=== PATIENT | female | born 1960 | race Caucasian/White ===

== ENCOUNTER 2017-11-04 22:04 | Emergency (ER) | payer MEDICARE, MEDICAID ==
[~2017-11-04 22:04] MED LIST: ABILIFY MAINTENA 400 MG; BENZ1TAB7 PO; CLIN-5 PO; DOCU250C4 PO; FERR325T32 PO; INVEGA SUSTENNA 234 MG/1.5 ML; INVEGA TRINZA; LEVO100T PO; LEVOTHYROXINE 100 MCG TABLET; MELOXICAM 7.5 MG TABLET; MULT1TAB74 PO; PALI234D IM; SYNTHROID 50 MCG TABLET; TEMAZEPAM 30 MG CAPSULE; TRAZODONE 100 MG TABLET
== END 2017-11-05 00:59 | disposition left against medical advice (07) ==
LOC: ER 22:04
DX: Z00.8 Encounter for other general examination (principal); Z53.21 Procedure and treatment not carried out due to patient leaving prior to being seen by health care provider

== ENCOUNTER 2017-11-05 15:22 | Emergency (ER) | payer MEDICARE, MEDICAID ==
[2017-11-05 16:23] VITALS: BP 155/74
== END 2017-11-05 16:29 | disposition home or self-care (01) ==
LOC: ER 15:23
DX: B35.1 Tinea unguium (principal); I10 Essential (primary) hypertension; F17.200 Nicotine dependence, unspecified, uncomplicated; F15.10 Other stimulant abuse, uncomplicated; F11.10 Opioid abuse, uncomplicated; Z86.73 Personal history of transient ischemic attack (TIA), and cerebral infarction without residual deficits; Z98.890 Other specified postprocedural states; Z79.899 Other long term (current) drug therapy
CPT/HCPCS: 99281

== ENCOUNTER 2018-03-14 07:50 | Emergency (ER) | payer MEDICARE, OTHER ==
[~2018-03-14] VITALS: Ht 154.9 cm; Wt 54.0 kg
[~2018-03-14 07:50] MED LIST changes: +DIPH50CA3 PO
[2018-03-14 08:33] LABS: BASOPHILS % (AUTO) 0.4 % (0-1); EOSINOPHILS # (AUTO) 0.1 X10'3 (0-0.9); EOSINOPHILS % (AUTO) 1.4 % (0-6); HEMATOCRIT 32.1 % (35.0-45.0); HEMOGLOBIN 10.6 g/dl (12.0-16.0); LYMPHOCYTES # (AUTO) 1.2 X10'3 (1.1-4.8); LYMPHOCYTES % (AUTO) 21.7 % (21-51); MEAN CORPUSCULAR HEMOGLOBIN 29.9 PG (27.0-31.0); MEAN CORPUSCULAR HGB CONC 33.2 % (33.0-36.5); MEAN CORPUSCULAR VOLUME 90.3 FL (78-98); MEAN PLATELET VOLUME 7.4 FL (7.4-10.4); MONOCYTES # (AUTO) 0.3 X10'3 (0-0.9); MONOCYTES % (AUTO) 6.3 % (2-12); NEUTROPHILS # (AUTO) 3.8 X10'3 (1.8-7.7); NEUTROPHILS % (AUTO) 70.2 % (42-75); PLATELET COUNT 311 X10'3 (140-440); RED BLOOD COUNT 3.55 X10'6 (4.20-5.60); WHITE BLOOD COUNT 5.4 X10'3 (4.5-11.0)
[2018-03-14] MEDS ORDERED: LORazepam 1 MG tablet PO ONE (08:40)
[2018-03-14] MEDS ORDERED: diphenhydrAMINE 25mg capsule PO ONE (08:40)
[2018-03-14 08:47] LABS: ANION GAP 10 (8-16); BILIRUBIN,TOTAL 0.4 MG/DL (0.1-1.0); BLOOD UREA NITROGEN 19 MG/DL (7-18); BUN/CREATININE RATIO 18.6 (6.6-38.0); CALCIUM 9.3 MG/DL (8.5-10.1); CHLORIDE 105 MMOL/L (99-107); CREATININE 1.02 MG/DL (0.40-0.90); GLUCOSE 103 MG/DL (70-104); POTASSIUM 3.8 MMOL/L (3.5-5.1); SODIUM 143 MMOL/L (135-145); TOTAL CARBON DIOXIDE 28.2 MMOL/L (24-32); TOTAL PROTEIN 7.6 G/DL (6.4-8.2); eGFR 56 ML/MIN
[2018-03-14 08:48] LABS: ALANINE AMINOTRANSFERASE 27 U/L (12-78); ALBUMIN/GLOBULIN RATIO 1.1 (1.1-1.5); ALKALINE PHOSPHATASE 76 IU/L (46-116); ASPARTATE AMINO TRANSFERASE 27 U/L (10-37); ETHANOL < 0.010 GM/DL (0.0-0.010)
[2018-03-14 08:49] LABS: URINE HCG NEGATIVE (NEG)
[2018-03-14 08:58] LABS: URINE AMPHETAMINE SCREEN NEGATIVE (Neg); URINE BARBITUATE SCREEN NEGATIVE (Neg); URINE BENZODIAZEPINES SCREEN NEGATIVE (Neg); URINE CANNABINOID SCREEN POSITIVE (Neg); URINE COCAINE SCREEN NEGATIVE (Neg); URINE METHADONE SCREEN NEGATIVE (Neg); URINE OPIATE SCREEN NEGATIVE (Neg); URINE PHENCYCLIDINE SCREEN NEGATIVE (Neg)
[2018-03-14] MEDS ORDERED: haloperidol lactate 5mg/ml inj IM ONE ×3 (09:25→14:25)
[2018-03-14] MEDS ORDERED: LORazepam 2 mg/ml vial IM ONE (14:25)
[2018-03-14] MEDS ORDERED: LITH300T3 PO (14:55)
[2018-03-14] MEDS ORDERED: RISP2TAB3 PO (14:55)
[2018-03-14] MEDS ORDERED: DIPH25CA83 PO (14:57)
[2018-03-14] MEDS ORDERED: diphenhydrAMINE 25mg capsule PO SCH (21:00)
[2018-03-14] MEDS ORDERED: risperiDONE 2mg tablet PO SCH (21:00)
[2018-03-14] MEDS ORDERED: lithium carbonate 300mg SR tablet (LithoBID) PO SCH (21:13)
[2018-03-14] MEDS ORDERED: lithium carbonate 300mg SR tablet (LithoBID) PO ONE (21:20)
[2018-03-15] MEDS ORDERED: diphenhydrAMINE 50 mg/ml inj IM PRN (03:25)
[2018-03-15] MEDS ORDERED: haloperidol lactate 5mg/ml inj IM PRN (03:25)
[2018-03-15] MEDS ORDERED: LORazepam 2 mg/ml vial IM PRN (03:25)
[2018-03-15] MEDS ORDERED: LORazepam 0.5 MG tablet PO PRN ×2 (07:00→07:02)
[2018-03-15] MEDS ORDERED: risperiDONE 2mg tablet PO SCH (08:00)
[2018-03-15] MEDS ORDERED: levoTHYROXINE 100mcg tablet PO SCH (08:00)
[2018-03-15] MEDS ORDERED: risperiDONE 0.5mg tablet PO SCH ×2 (08:00)
[2018-03-15 10:35] VITALS: BP 117/75
[2018-03-15] MEDS ORDERED: Protein Shake (high protein) 240ml (8oz) cup PO SCH (13:00)
== END 2018-03-15 10:30 | disposition home or self-care (01) ==
LOC: ER 07:50
DX: N18.9 Chronic kidney disease, unspecified (principal); I12.9 Hypertensive chronic kidney disease with stage 1 through stage 4 chronic kidney disease, or unspecified chronic kidney disease; F41.9 Anxiety disorder, unspecified; F32.9 Major depressive disorder, single episode, unspecified; F20.9 Schizophrenia, unspecified; F29 Unspecified psychosis not due to a substance or known physiological condition; F12.90 Cannabis use, unspecified, uncomplicated; F15.90 Other stimulant use, unspecified, uncomplicated; F11.90 Opioid use, unspecified, uncomplicated; Z98.890 Other specified postprocedural states; Z86.73 Personal history of transient ischemic attack (TIA), and cerebral infarction without residual deficits; Z86.69 Personal history of other diseases of the nervous system and sense organs; Z79.899 Other long term (current) drug therapy
CPT/HCPCS: 36415; 80053; 80178; 80305; 80320; 81025; 85025; 93005; 96372; 99285; J1200; J1630; J2060; Q0163

== ENCOUNTER 2018-04-25 13:39 | Emergency (ER) | payer MEDICARE ==
[~2018-04-25] VITALS: Ht 162.6 cm; Wt 63.6 kg
[~2018-04-25 13:39] MED LIST changes: -ABILIFY MAINTENA 400 MG; -BENZ1TAB7 PO; -CLIN-5 PO; +DIPH25CA83 PO; -DIPH50CA3 PO; -DOCU250C4 PO; -FERR325T32 PO; -INVEGA SUSTENNA 234 MG/1.5 ML; -INVEGA TRINZA; -LEVOTHYROXINE 100 MCG TABLET; +LITH300T3 PO; -MELOXICAM 7.5 MG TABLET; -MULT1TAB74 PO; -PALI234D IM; +RISP2TAB3 PO; -SYNTHROID 50 MCG TABLET; -TEMAZEPAM 30 MG CAPSULE; -TRAZODONE 100 MG TABLET
[2018-04-25] MEDS ORDERED: LORazepam 1 MG tablet PO ONE (13:55)
[2018-04-25] MEDS ORDERED: diphenhydrAMINE 25mg capsule PO ONE (13:55)
[2018-04-25] MEDS ORDERED: haloperidol lactate 5mg/ml inj IM ONE ×2 (13:55→22:20)
[2018-04-25 14:06] LABS: CLARITY,URINE CLEAR (Clear); COLOR,URINE YELLOW (Yellow); GLUCOSE, URINE NEGATIVE (Neg); KETONES,URINE NEGATIVE (Neg); LEUKOCYTE ESTERASE ,URINE NEGATIVE (Neg); NITRITES, URINE NEGATIVE (Neg); OCCULT BLOOD,URINE NEGATIVE (Neg); PROTEIN,URINE NEGATIVE (Neg); UA COLLECTION TYPE OTHER; UROBILINOGEN,URINE 0.2 E.U/dL (0.2-1.0)
[2018-04-25 14:14] LABS: URINE AMPHETAMINE SCREEN NEGATIVE (Neg); URINE BARBITUATE SCREEN NEGATIVE (Neg); URINE BENZODIAZEPINES SCREEN NEGATIVE (Neg); URINE CANNABINOID SCREEN POSITIVE (Neg); URINE COCAINE SCREEN NEGATIVE (Neg); URINE METHADONE SCREEN NEGATIVE (Neg); URINE OPIATE SCREEN NEGATIVE (Neg); URINE PHENCYCLIDINE SCREEN NEGATIVE (Neg)
[2018-04-25] MEDS ORDERED: ARIP400S3 IM (14:29)
[2018-04-25] MEDS ORDERED: PALI234D IM (14:29)
[2018-04-25 14:37] LABS: BASOPHILS % (AUTO) 0.3 % (0-1); HEMATOCRIT 31.3 % (35.0-45.0); HEMOGLOBIN 10.3 g/dl (12.0-16.0); LYMPHOCYTES # (AUTO) 1.1 X10'3 (1.1-4.8); LYMPHOCYTES % (AUTO) 24.3 % (21-51); MEAN CORPUSCULAR HEMOGLOBIN 28.9 PG (27.0-31.0); MEAN CORPUSCULAR HGB CONC 32.8 % (33.0-36.5); MEAN CORPUSCULAR VOLUME 88.1 FL (78-98); MONOCYTES # (AUTO) 0.4 X10'3 (0-0.9); MONOCYTES % (AUTO) 9.4 % (2-12); NEUTROPHILS # (AUTO) 2.9 X10'3 (1.8-7.7); PLATELET COUNT 222 X10'3 (140-440); RED BLOOD COUNT 3.56 X10'6 (4.20-5.60); RED CELL DISTRIBUTION WIDTH 12.8 % (11.5-14.5); WHITE BLOOD COUNT 4.5 X10'3 (4.5-11.0)
[2018-04-25 14:55] LABS: ALANINE AMINOTRANSFERASE 29 U/L (12-78); ALBUMIN 3.3 G/DL (3.4-5.0); ALKALINE PHOSPHATASE 68 IU/L (46-116); ANION GAP 8 (8-16); ASPARTATE AMINO TRANSFERASE 26 U/L (10-37); BILIRUBIN,TOTAL 0.3 MG/DL (0.1-1.0); BLOOD UREA NITROGEN 12 MG/DL (7-18); CALCIUM 8.8 MG/DL (8.5-10.1); CHLORIDE 105 MMOL/L (99-107); ETHANOL < 0.010 GM/DL (0.0-0.010); GLUCOSE 89 MG/DL (70-104); POTASSIUM 3.5 MMOL/L (3.5-5.1); SODIUM 141 MMOL/L (135-145); TOTAL CARBON DIOXIDE 27.7 MMOL/L (24-32); TOTAL PROTEIN 6.5 G/DL (6.4-8.2); eGFR 74 ML/MIN
[2018-04-25] MEDS ORDERED: paliperidone palmitate inj 234 MG/1.5 ML SYRINGE IM ONE (19:05)
[2018-04-25] MEDS ORDERED: diphenhydrAMINE 25mg capsule PO SCH (20:00)
[2018-04-25] MEDS: lithium carbonate 150mg capsule PO SCH (21:48)
[2018-04-25] MEDS: risperiDONE 2mg tablet PO SCH (21:49)
[2018-04-25] MEDS ORDERED: LORazepam 2 mg/ml vial IM ONE (22:20)
[2018-04-25] MEDS ORDERED: diphenhydrAMINE 50 mg/ml inj IM ONE (22:20)
[2018-04-26] MEDS: levoTHYROXINE 100mcg tablet PO SCH (07:00)
[2018-04-26] MEDS: quetiapine 100mg tablet PO SCH ×2 (08:00→20:00)
[2018-04-26] MEDS: lithium carbonate 150mg capsule PO SCH ×2 (08:00→20:00)
[2018-04-26] MEDS ORDERED: haloperidol lactate 5mg/ml inj IM ONE (14:20)
[2018-04-26] MEDS ORDERED: haloperidol 5mg tablet PO ONE (18:55)
[2018-04-26] MEDS: risperiDONE 2mg tablet PO SCH ×2 (20:12→22:13)
[2018-04-26] MEDS ORDERED: LORazepam 2 mg/ml vial IM ONE (22:10)
[2018-04-26] MEDS ORDERED: diphenhydrAMINE 50 mg/ml inj IM ONE (22:10)
[2018-04-27] MEDS: levoTHYROXINE 100mcg tablet PO SCH (07:23)
[2018-04-27] MEDS: lithium carbonate 150mg capsule PO SCH ×2 (07:23→21:26)
[2018-04-27] MEDS: quetiapine 100mg tablet PO SCH ×2 (07:23→21:10)
[2018-04-27] MEDS ORDERED: acetaminophen 325mg tablet PO ONE (07:45)
[2018-04-27] MEDS: LORazepam 1 MG tablet PO PRN (19:32)
[2018-04-27] MEDS: risperiDONE 2mg tablet PO SCH (21:10)
[2018-04-28] MEDS: levoTHYROXINE 100mcg tablet PO SCH (07:50)
[2018-04-28] MEDS: quetiapine 100mg tablet PO SCH ×2 (08:40→21:09)
[2018-04-28] MEDS: lithium carbonate 150mg capsule PO SCH ×2 (08:40→21:09)
[2018-04-28] MEDS ORDERED: magnesium citrate 296ml oral solution PO ONE (12:35)
[2018-04-28] MEDS: risperiDONE 2mg tablet PO SCH (21:09)
[2018-04-29] MEDS: levoTHYROXINE 100mcg tablet PO SCH (07:28)
[2018-04-29] MEDS: LORazepam 1 MG tablet PO PRN (07:29)
[2018-04-29] MEDS: lithium carbonate 150mg capsule PO SCH ×2 (07:29→19:08)
[2018-04-29] MEDS: quetiapine 100mg tablet PO SCH ×2 (07:29→19:04)
[2018-04-29 17:31] VITALS: BP 112/70
== END 2018-04-29 19:12 | disposition home or self-care (01) ==
LOC: ER 13:40
DX: F20.9 Schizophrenia, unspecified (principal); R45.1 Restlessness and agitation; I10 Essential (primary) hypertension; E03.9 Hypothyroidism, unspecified; F41.9 Anxiety disorder, unspecified; F32.9 Major depressive disorder, single episode, unspecified; F12.90 Cannabis use, unspecified, uncomplicated; F15.90 Other stimulant use, unspecified, uncomplicated; F11.90 Opioid use, unspecified, uncomplicated; Z98.890 Other specified postprocedural states; Z86.73 Personal history of transient ischemic attack (TIA), and cerebral infarction without residual deficits; Z79.899 Other long term (current) drug therapy
CPT/HCPCS: 36415; 80053; 80178; 80305; 80320; 81003; 85025; 96372; 99285; J1200; J1630; J2060; Q0163

== ENCOUNTER 2018-06-14 17:43 | Emergency (ER) | payer MEDICARE, OTHER ==
[~2018-06-14] VITALS: Ht 162.6 cm; Wt 67.0 kg
[~2018-06-14 17:43] MED LIST changes: +ARIP400S3 IM; -DIPH25CA83 PO; +PALI234D IM
[2018-06-14 18:10] VITALS: BP 117/74
[2018-06-14] MEDS ORDERED: TRAZ300T2 PO (21:03)
[2018-06-14] MEDS ORDERED: traZODone 150mg tablet PO ONE (21:05)
== END 2018-06-14 21:25 | disposition home or self-care (01) ==
LOC: ER 17:43
DX: G47.09 Other insomnia (principal); I10 Essential (primary) hypertension; F12.90 Cannabis use, unspecified, uncomplicated; F15.90 Other stimulant use, unspecified, uncomplicated; F11.90 Opioid use, unspecified, uncomplicated; F17.210 Nicotine dependence, cigarettes, uncomplicated; Z86.73 Personal history of transient ischemic attack (TIA), and cerebral infarction without residual deficits; Z98.890 Other specified postprocedural states; Z79.899 Other long term (current) drug therapy
CPT/HCPCS: 99283

== ENCOUNTER 2018-10-19 13:12 | Emergency (ER) | payer MEDICARE ==
[~2018-10-19] VITALS: Ht 162.6 cm; Wt 74.0 kg
[~2018-10-19 13:12] MED LIST changes: +TRAZ300T2 PO
[2018-10-19] MEDS ORDERED: normal saline 1000ML IV soln IVB ONE (13:55)
[2018-10-19 14:12] LABS: BASOPHILS % (AUTO) 0.3 % (0-1); EOSINOPHILS # (AUTO) 0.1 X10'3 (0-0.9); EOSINOPHILS % (AUTO) 1.2 % (0-6); HEMATOCRIT 30.1 % (35.0-45.0); HEMOGLOBIN 10.1 g/dl (12.0-16.0); LYMPHOCYTES # (AUTO) 1.1 X10'3 (1.1-4.8); LYMPHOCYTES % (AUTO) 19.8 % (21-51); MEAN CORPUSCULAR HGB CONC 33.7 g/dL (33.0-36.5); MEAN CORPUSCULAR VOLUME 91.8 FL (78-98); MEAN PLATELET VOLUME 7.6 FL (7.4-10.4); MONOCYTES # (AUTO) 0.4 X10'3 (0-0.9); MONOCYTES % (AUTO) 7.3 % (2-12); NEUTROPHILS # (AUTO) 4.1 X10'3 (1.8-7.7); NEUTROPHILS % (AUTO) 71.4 % (42-75); PLATELET COUNT 225 X10'3 (140-440); RED BLOOD COUNT 3.28 X10'6 (4.20-5.60); RED CELL DISTRIBUTION WIDTH 14.9 % (11.5-14.5); WHITE BLOOD COUNT 5.8 X10'3 (4.5-11.0)
[2018-10-19 14:22] LABS: ALANINE AMINOTRANSFERASE 19 U/L (12-78); ALBUMIN 3.4 G/DL (3.4-5.0); ALBUMIN/GLOBULIN RATIO 1.2 (1.1-1.5); ALKALINE PHOSPHATASE 64 IU/L (46-116); ANION GAP 2 (8-16); ASPARTATE AMINO TRANSFERASE 13 U/L (10-37); BILIRUBIN,TOTAL 0.2 MG/DL (0.1-1.0); BLOOD UREA NITROGEN 19 MG/DL (7-18); BUN/CREATININE RATIO 16.7 (6.6-38.0); CALCIUM 9.6 MG/DL (8.5-10.1); CHLORIDE 105 MMOL/L (99-107); CREATININE 1.14 MG/DL (0.40-0.90); GLUCOSE 110 MG/DL (70-104); MAGNESIUM 1.9 MG/DL (1.5-2.4); POTASSIUM 4.3 MMOL/L (3.5-5.1); SODIUM 136 MMOL/L (135-145); TOTAL CARBON DIOXIDE 28.8 MMOL/L (24-32); TOTAL PROTEIN 6.3 G/DL (6.4-8.2); eGFR 49 ML/MIN
[2018-10-19 15:08] LABS: CLARITY,URINE CLEAR (Clear); COLOR,URINE YELLOW (Yellow); GLUCOSE, URINE NEGATIVE (Neg); KETONES,URINE NEGATIVE (Neg); LEUKOCYTE ESTERASE ,URINE NEGATIVE (Neg); NITRITES, URINE NEGATIVE (Neg); OCCULT BLOOD,URINE NEGATIVE (Neg); PH,URINE 6.5 (4.8-8.0); PROTEIN,URINE NEGATIVE (Neg); UROBILINOGEN,URINE 0.2 E.U/dL (0.2-1.0)
[2018-10-19 15:12] LABS: UA COLLECTION TYPE CLN CATCH MIDSTREAM
[2018-10-19 16:17] VITALS: BP 126/91
== END 2018-10-19 16:18 | disposition home or self-care (01) ==
LOC: ER 13:14
DX: E86.0 Dehydration (principal); R42 Dizziness and giddiness; I10 Essential (primary) hypertension; F17.200 Nicotine dependence, unspecified, uncomplicated; F12.90 Cannabis use, unspecified, uncomplicated; F15.90 Other stimulant use, unspecified, uncomplicated; F11.90 Opioid use, unspecified, uncomplicated; Z86.73 Personal history of transient ischemic attack (TIA), and cerebral infarction without residual deficits
CPT/HCPCS: 36415; 80053; 81003; 83735; 85025; 93005; 96360; 99284; J7030; 96372

== ENCOUNTER 2019-01-26 13:58 | Emergency (ER) | payer MEDICARE, MEDICAID ==
[~2019-01-26] VITALS: Ht 170.2 cm; Wt 77.3 kg
[2019-01-26 14:09] VITALS: BP 121/80
[2019-01-26 14:57] LABS: BASOPHILS % (AUTO) 0.2 % (0-1); EOSINOPHILS % (AUTO) 0.2 % (0-6); HEMATOCRIT 35.7 % (35.0-45.0); HEMOGLOBIN 11.8 g/dl (12.0-16.0); LYMPHOCYTES # (AUTO) 0.9 X10'3 (1.1-4.8); MEAN CORPUSCULAR HEMOGLOBIN 31.4 PG (27.0-31.0); MEAN CORPUSCULAR HGB CONC 33.2 g/dL (33.0-36.5); MEAN CORPUSCULAR VOLUME 94.5 FL (78-98); MEAN PLATELET VOLUME 7.5 FL (7.4-10.4); MONOCYTES # (AUTO) 0.6 X10'3 (0-0.9); MONOCYTES % (AUTO) 8.2 % (2-12); NEUTROPHILS # (AUTO) 6.2 X10'3 (1.8-7.7); NEUTROPHILS % (AUTO) 79.4 % (42-75); PLATELET COUNT 259 X10'3 (140-440); RED BLOOD COUNT 3.78 X10'6 (4.20-5.60); WHITE BLOOD COUNT 7.9 X10'3 (4.5-11.0)
[2019-01-26 15:08] LABS: ALANINE AMINOTRANSFERASE 28 U/L (12-78); ALBUMIN 4.2 G/DL (3.4-5.0); ALBUMIN/GLOBULIN RATIO 1.1 (1.1-1.5); ALKALINE PHOSPHATASE 89 IU/L (46-116); ANION GAP 10 (8-16); ASPARTATE AMINO TRANSFERASE 19 U/L (10-37); BILIRUBIN,TOTAL 0.7 MG/DL (0.1-1.0); BLOOD UREA NITROGEN 18 MG/DL (7-18); BUN/CREATININE RATIO 16.8 (6.6-38.0); CHLORIDE 104 MMOL/L (99-107); CREATININE 1.07 MG/DL (0.40-0.90); GLUCOSE 112 MG/DL (70-104); SODIUM 136 MMOL/L (135-145); TOTAL CARBON DIOXIDE 22.3 MMOL/L (24-32); TOTAL PROTEIN 7.9 G/DL (6.4-8.2); eGFR 53 ML/MIN
== END 2019-01-26 15:35 | disposition home or self-care (01) ==
LOC: ER 14:00
DX: F25.0 Schizoaffective disorder, bipolar type (principal); R79.0 Abnormal level of blood mineral; I10 Essential (primary) hypertension; F41.9 Anxiety disorder, unspecified; F12.90 Cannabis use, unspecified, uncomplicated; F15.90 Other stimulant use, unspecified, uncomplicated; F11.90 Opioid use, unspecified, uncomplicated; Z86.73 Personal history of transient ischemic attack (TIA), and cerebral infarction without residual deficits; Z86.69 Personal history of other diseases of the nervous system and sense organs; Z98.890 Other specified postprocedural states; Z79.899 Other long term (current) drug therapy
CPT/HCPCS: 36415; 80053; 80178; 85025; 93005; 99284

== ENCOUNTER 2019-04-27 10:02 | Emergency (ER) | payer MEDICARE, MEDICAID ==
[~2019-04-27] VITALS: Ht 162.6 cm; Wt 77.0 kg
[2019-04-27 10:09] VITALS: BP 118/73
--- NOTE | 2019-04-27 10:12 | NUR ---
IMMEDIATELY AFTER TRIAGE PATIENT LEFT
== END 2019-04-27 10:38 | disposition left against medical advice (07) ==
LOC: ER 10:03
DX: R52 Pain, unspecified (principal); K59.00 Constipation, unspecified; Z53.21 Procedure and treatment not carried out due to patient leaving prior to being seen by health care provider

== ENCOUNTER 2019-06-18 02:18 | Emergency (ER) | payer MEDICARE, MEDICAID ==
[~2019-06-18] VITALS: Ht 162.6 cm; Wt 84.0 kg
[2019-06-18 02:21] VITALS: BP 119/79
== END 2019-06-18 03:40 | disposition left against medical advice (07) ==
LOC: ER 02:19
DX: M25.561 Pain in right knee (principal); M25.562 Pain in left knee; F12.90 Cannabis use, unspecified, uncomplicated; F15.90 Other stimulant use, unspecified, uncomplicated; F11.90 Opioid use, unspecified, uncomplicated; I10 Essential (primary) hypertension; M19.90 Unspecified osteoarthritis, unspecified site; F41.9 Anxiety disorder, unspecified; F32.9 Major depressive disorder, single episode, unspecified; F20.9 Schizophrenia, unspecified; Z86.73 Personal history of transient ischemic attack (TIA), and cerebral infarction without residual deficits; Z79.899 Other long term (current) drug therapy
CPT/HCPCS: 99281

== ENCOUNTER 2019-11-09 19:44 | Emergency (ER) | payer MEDICARE, MEDICAID ==
[~2019-11-09] VITALS: Ht 162.6 cm; Wt 95.0 kg
[2019-11-09 20:36] LABS: BASOPHILS % (AUTO) 0.2 % (0-1); EOSINOPHILS # (AUTO) 0.2 X10'3 (0-0.9); EOSINOPHILS % (AUTO) 1.7 % (0-6); HEMOGLOBIN 10.3 g/dl (12.0-16.0); LYMPHOCYTES # (AUTO) 1.6 X10'3 (1.1-4.8); LYMPHOCYTES % (AUTO) 17.8 % (21-51); MEAN CORPUSCULAR HEMOGLOBIN 31.3 PG (27.0-31.0); MEAN CORPUSCULAR HGB CONC 33.2 g/dL (33.0-36.5); MEAN CORPUSCULAR VOLUME 94.4 FL (78-98); MONOCYTES # (AUTO) 0.6 X10'3 (0-0.9); MONOCYTES % (AUTO) 6.4 % (2-12); NEUTROPHILS # (AUTO) 6.6 X10'3 (1.8-7.7); NEUTROPHILS % (AUTO) 73.9 % (42-75); PLATELET COUNT 256 X10'3 (140-440); RED BLOOD COUNT 3.28 X10'6 (4.20-5.60); RED CELL DISTRIBUTION WIDTH 12.9 % (11.5-14.5); WHITE BLOOD COUNT 8.9 X10'3 (4.5-11.0)
[2019-11-09 20:53] LABS: ALANINE AMINOTRANSFERASE 17 U/L (12-78); ALBUMIN 3.3 G/DL (3.4-5.0); ALKALINE PHOSPHATASE 61 IU/L (46-116); ANION GAP 4 (8-16); ASPARTATE AMINO TRANSFERASE 14 U/L (10-37); BILIRUBIN,TOTAL 0.2 MG/DL (0.1-1.0); BLOOD UREA NITROGEN 16 MG/DL (7-18); BUN/CREATININE RATIO 11.9 (6.6-38.0); CALCIUM 9.2 MG/DL (8.5-10.1); CHLORIDE 106 MMOL/L (99-107); CREATININE 1.34 MG/DL (0.40-0.90); GLUCOSE 101 MG/DL (70-104); SODIUM 137 MMOL/L (135-145); TOTAL CARBON DIOXIDE 27.5 MMOL/L (24-32); TOTAL PROTEIN 6.6 G/DL (6.4-8.2); eGFR 41 ML/MIN
--- NOTE | 2019-11-09 21:04 | NUR ---
Passed gait test
[2019-11-09 21:14] VITALS: BP 101/65
== END 2019-11-09 21:36 | disposition home or self-care (01) ==
LOC: ER 19:45
DX: F20.9 Schizophrenia, unspecified (principal); E86.0 Dehydration; F41.9 Anxiety disorder, unspecified; F32.9 Major depressive disorder, single episode, unspecified; F12.90 Cannabis use, unspecified, uncomplicated; F11.90 Opioid use, unspecified, uncomplicated; F15.90 Other stimulant use, unspecified, uncomplicated; Z86.73 Personal history of transient ischemic attack (TIA), and cerebral infarction without residual deficits; Z86.69 Personal history of other diseases of the nervous system and sense organs; Z98.890 Other specified postprocedural states; Z79.899 Other long term (current) drug therapy
CPT/HCPCS: 36415; 71045; 80053; 82948; 84484; 85025; 93005; 99285

== ENCOUNTER 2020-04-04 19:25 | Emergency (ER) | payer MEDICARE, MEDICAID ==
[~2020-04-04] VITALS: Ht 162.6 cm; Wt 68.2 kg
[2020-04-04 20:02] LABS: BASOPHILS % (AUTO) 0.2 % (0-1); EOSINOPHILS % (AUTO) 0 % (0-6); HEMATOCRIT 34.6 % (35.0-45.0); HEMOGLOBIN 11.5 g/dl (12.0-16.0); LYMPHOCYTES % (AUTO) 8.1 % (21-51); MEAN CORPUSCULAR HEMOGLOBIN 31.2 PG (27.0-31.0); MEAN CORPUSCULAR HGB CONC 33.2 g/dL (33.0-36.5); MEAN CORPUSCULAR VOLUME 93.9 FL (78-98); MEAN PLATELET VOLUME 7.7 FL (7.4-10.4); MONOCYTES # (AUTO) 0.8 X10'3 (0-0.9); MONOCYTES % (AUTO) 7.2 % (2-12); NEUTROPHILS # (AUTO) 9.9 X10'3 (1.8-7.7); NEUTROPHILS % (AUTO) 84.5 % (42-75); PLATELET COUNT 283 X10'3 (140-440); RED BLOOD COUNT 3.69 X10'6 (4.20-5.60); RED CELL DISTRIBUTION WIDTH 12.9 % (11.5-14.5); WHITE BLOOD COUNT 11.7 X10'3 (4.5-11.0)
[2020-04-04 20:10] LABS: ALANINE AMINOTRANSFERASE 51 U/L (12-78); ALBUMIN 4.3 G/DL (3.4-5.0); ALBUMIN/GLOBULIN RATIO 1.2 (1.1-1.5); ALKALINE PHOSPHATASE 64 IU/L (46-116); ANION GAP 6 (8-16); ASPARTATE AMINO TRANSFERASE 105 U/L (10-37); BILIRUBIN,TOTAL 0.9 MG/DL (0.1-1.0); BLOOD UREA NITROGEN 42 MG/DL (7-18); BUN/CREATININE RATIO 24.7 (6.6-38.0); CALCIUM 10.8 MG/DL (8.5-10.1); CHLORIDE 100 MMOL/L (99-107); GLUCOSE 118 MG/DL (70-104); POTASSIUM 3.8 MMOL/L (3.5-5.1); SODIUM 136 MMOL/L (135-145); TOTAL CARBON DIOXIDE 29.8 MMOL/L (24-32); TOTAL PROTEIN 7.9 G/DL (6.4-8.2); eGFR 31 ML/MIN
[2020-04-04 20:15] LABS: ACETAMINOPHEN < 2.0 UG/ML (10-30); ETHANOL < 0.010 GM/DL (0.0-0.010)
[2020-04-04] MEDS ORDERED: TEMA30CA5 PO (20:20)
[2020-04-04] MEDS ORDERED: MELO-100 PO (20:20)
[2020-04-04] MEDS ORDERED: PROP20TA6 PO (20:21)
[2020-04-04] MEDS ORDERED: paliperidone palmitate inj 234 MG/1.5 ML SYRINGE IM SCH (20:45)
[2020-04-04] MEDS ORDERED: temazepam 15mg capsule PO SCH (21:00)
[2020-04-04] MEDS ORDERED: traZODone 150mg tablet PO SCH (21:00)
[2020-04-04] MEDS: lithium carbonate 150mg capsule PO SCH (21:13)
--- NOTE | 2020-04-04 23:02 | NUR ---
Familia ahuja in [facility] - 04/04/20 at 2303 by DANG sent over to of to cath patient for urine speciamn
--- NOTE | 2020-04-04 23:03 | NUR ---
came to stright cath the patient for urine speciman . educated patient that we needed a urine sample to make sure she does not have an infection . Pt stating " leave me alone " when tring to assit patient to wheel chair to take her to a private room . search advertising strategist at bedside . Pt not wanting to transfer to wheel chair sating " leaving me alone," over and over again . pt appears unsteady on her feet when brought to standing and trys to crawl back to bed when trying to get her to the wheel chair . This recorder reeducated patient that we need to stright cath her for a sterile urine sample and the patient repeated again " leave me alone " pushing me away . will report kassandra cohen that patient is refusing cath at this time and as i encourage her to coroporate she repeats herself raises her voice and starts to act agitated awaking other patients.
--- NOTE | 2020-04-04 23:20 | NUR ---
PT TAKEN TO FAST TRACK VIA BED FOR STRIGHT CATH UA . PT REEDUCATED THAT WE NEEDED AN URINE SAMPLE . PT THI TIME DID NOT REFUSE . PT WAS ABLE TO REMAIN IN HER OWN BED AND THAT SEEM TO MAINTAIN HER BEHAVIOR . STERILE TECHNIQUE. PT TOLERATED WELL . PT WHELLED BACK TO OVERFLOW JOCELYN GRIJALVA ASSISTED WITH PROCEDURE
[2020-04-04 23:48] LABS: URINE AMPHETAMINE SCREEN NEGATIVE (Neg); URINE BARBITUATE SCREEN NEGATIVE (Neg); URINE BENZODIAZEPINES SCREEN POSITIVE (Neg); URINE CANNABINOID SCREEN NEGATIVE (Neg); URINE COCAINE SCREEN NEGATIVE (Neg); URINE METHADONE SCREEN NEGATIVE (Neg); URINE OPIATE SCREEN NEGATIVE (Neg); URINE PHENCYCLIDINE SCREEN NEGATIVE (Neg)
[2020-04-05 00:07] LABS: CLARITY,URINE CLEAR (Clear); COLOR,URINE YELLOW (Yellow); GLUCOSE, URINE NEGATIVE (Neg); KETONES,URINE 15 mg/dl (Neg); LEUKOCYTE ESTERASE ,URINE NEGATIVE (Neg); NITRITES, URINE NEGATIVE (Neg); OCCULT BLOOD,URINE TRACE-INTACT (Neg); PROTEIN,URINE TRACE mg/dl (Neg); UROBILINOGEN,URINE 0.2 E.U/dL (0.2-1.0)
[2020-04-05 00:09] LABS: UA COLLECTION TYPE STRAIGHT CATH
[2020-04-05 00:13] LABS: WBC,URINE 0-4 /HPF (0-4)
[2020-04-05 00:14] LABS: BACTERIA,URINE NONE SEEN /HPF (Neg); SQUAMOUS EPITHELIAL CELL,UR MODERATE /LPF (FEW)
--- NOTE | 2020-04-05 00:14 | NUR ---
Pt. to CT
--- NOTE | 2020-04-05 00:27 | NUR ---
Pt. back from CT, resting quietly in bed, no signs of distress, respirations even and unlabored.
[2020-04-05] MEDS ORDERED: normal saline 1000ML IV soln IVB ONE (00:50)
--- NOTE | 2020-04-05 02:51 | NUR ---
Unable to obtain EKG, patient refused.
--- NOTE | 2020-04-05 04:13 | NUR ---
Patient attempted to use the restroom. She is very confused. When help is offered, she states, "leave me alone".
[2020-04-05 06:07] VITALS: BP 108/71
--- NOTE | 2020-04-05 07:00 | NUR ---
pt is sleeping. no issues at his time
[2020-04-05] MEDS: levoTHYROXINE 100mcg tablet PO SCH ×2 (08:00→14:00)
[2020-04-05] MEDS ORDERED: MELOXICAM PO SCH (08:00)
[2020-04-05] MEDS: lithium carbonate 150mg capsule PO SCH ×2 (08:00→14:00)
[2020-04-05] MEDS: propranolol 10mg tablet PO SCH ×2 (08:00→14:00)
--- NOTE | 2020-04-05 08:00 | NUR ---
pt is sleeping. mental health attempted to interview the patient and she told them to go away. [facility] knows the patient well and they can place her based off her hx
--- NOTE | 2020-04-05 09:00 | NUR ---
pt refused to eat breakfast or take her meds
--- NOTE | 2020-04-05 10:00 | NUR ---
pt is sleeping. [facility] is looking for placement
--- NOTE | 2020-04-05 11:00 | NUR ---
PT IS SLEEPING
--- NOTE | 2020-04-05 13:00 | NUR ---
PT AWAKE AND DRINKING WATER AND EATING JELLO
--- NOTE | 2020-04-05 14:15 | NUR ---
RELIEVING RN FOR LUNCH BREAK, PT IS RESTING QUIETLY ON BED, RESP EVEN AND UNLABORED
--- NOTE | 2020-04-05 14:17 | NUR ---
PT HAS BEEN ACCEPTED AT [facility] AT [address] RODR[address]UEZ, GOING TO UNIT 2, [facility] RN DIGESTIVE WILL BE HERE AT 1700, [facility] WOULD LIKE NURSE TO NURSE WHEN PT LEAVES UNIT,
--- NOTE | 2020-04-05 14:53 | NUR ---
hawa rothman accepted pt. transportation will be here 1900. please call report at 1900 . pt going to unit 2
--- NOTE | 2020-04-05 16:00 | NUR ---
pt is sleeping
--- NOTE | 2020-04-05 17:00 | NUR ---
pt is sleeping
== END 2020-04-05 17:39 ==
LOC: ER 19:26
DX: R41.82 Altered mental status, unspecified (principal); I10 Essential (primary) hypertension; F41.9 Anxiety disorder, unspecified; F32.9 Major depressive disorder, single episode, unspecified; F20.9 Schizophrenia, unspecified; F12.90 Cannabis use, unspecified, uncomplicated; F15.90 Other stimulant use, unspecified, uncomplicated; F11.90 Opioid use, unspecified, uncomplicated; Z86.73 Personal history of transient ischemic attack (TIA), and cerebral infarction without residual deficits; Z98.890 Other specified postprocedural states; Z79.899 Other long term (current) drug therapy
CPT/HCPCS: 36415; 70450; 71045; 80053; 80305; 80320; 80329; 81001; 82140; 85025; 99285; J7030; 81003

== ENCOUNTER 2020-04-18 05:28 | Emergency (ER) | payer MEDICARE, MEDICAID ==
[~2020-04-18] VITALS: Ht 162.6 cm; Wt 77.0 kg
[~2020-04-18 05:28] MED LIST changes: -ARIP400S3 IM; +MELO-100 PO; +PROP20TA6 PO; -RISP2TAB3 PO; +TEMA30CA5 PO
--- NOTE | 2020-04-18 06:52 | NUR ---
Up to bedside commode at this time, 1 person standby assist required, safely transfered back into bed.
[2020-04-18 07:00] LABS: CLARITY,URINE SLIGHTLY CLOUDY (Clear); COLOR,URINE YELLOW (Yellow); GLUCOSE, URINE NEGATIVE (Neg); KETONES,URINE NEGATIVE (Neg); LEUKOCYTE ESTERASE ,URINE NEGATIVE (Neg); NITRITES, URINE NEGATIVE (Neg); OCCULT BLOOD,URINE NEGATIVE (Neg); PH,URINE 6.5 (4.8-8.0); PROTEIN,URINE NEGATIVE (Neg)
[2020-04-18 07:03] LABS: UA COLLECTION TYPE CLN CATCH MIDSTREAM
[2020-04-18 07:06] LABS: BACTERIA,URINE 1+ /HPF (Neg); MUCUS STRANDS MANY /LPF (Neg); SQUAMOUS EPITHELIAL CELL,UR MANY /LPF (FEW)
[2020-04-18 07:07] LABS: RBC,URINE 0-2 /HPF (0-2); WBC,URINE 0-4 /HPF (0-4)
[2020-04-18 07:31] VITALS: BP 106/62
== END 2020-04-18 07:32 | disposition home or self-care (01) ==
LOC: ER 05:29
DX: R32 Unspecified urinary incontinence (principal); F12.90 Cannabis use, unspecified, uncomplicated; F15.90 Other stimulant use, unspecified, uncomplicated; F11.90 Opioid use, unspecified, uncomplicated; I10 Essential (primary) hypertension; F41.9 Anxiety disorder, unspecified; F32.9 Major depressive disorder, single episode, unspecified; F20.9 Schizophrenia, unspecified; Z98.890 Other specified postprocedural states; Z86.73 Personal history of transient ischemic attack (TIA), and cerebral infarction without residual deficits; Z86.69 Personal history of other diseases of the nervous system and sense organs; Z72.89 Other problems related to lifestyle; Z79.899 Other long term (current) drug therapy
CPT/HCPCS: 81001; 99284

== ENCOUNTER 2020-05-19 11:54 | Emergency (ER) | payer MEDICARE, MEDICAID ==
[~2020-05-19] VITALS: Ht 165.1 cm; Wt 77.3 kg
--- NOTE | 2020-05-19 13:40 | NUR ---
PT TO CT VIA NEHA
[2020-05-19 14:36] LABS: BASOPHILS % (AUTO) 0.1 % (0-1); EOSINOPHILS % (AUTO) 0 % (0-6); HEMATOCRIT 36.6 % (35.0-45.0); HEMOGLOBIN 11.9 g/dl (12.0-16.0); LYMPHOCYTES # (AUTO) 0.7 X10'3 (1.1-4.8); LYMPHOCYTES % (AUTO) 5.8 % (21-51); MEAN CORPUSCULAR HEMOGLOBIN 30.5 PG (27.0-31.0); MEAN CORPUSCULAR HGB CONC 32.6 g/dL (33.0-36.5); MEAN CORPUSCULAR VOLUME 93.4 FL (78-98); MEAN PLATELET VOLUME 8.9 FL (7.4-10.4); MONOCYTES # (AUTO) 1.1 X10'3 (0-0.9); MONOCYTES % (AUTO) 8.4 % (2-12); NEUTROPHILS % (AUTO) 85.7 % (42-75); PLATELET COUNT 271 X10'3 (140-440); RED BLOOD COUNT 3.91 X10'6 (4.20-5.60); RED CELL DISTRIBUTION WIDTH 13.8 % (11.5-14.5); WHITE BLOOD COUNT 12.9 X10'3 (4.5-11.0)
[2020-05-19 14:44] LABS: CLARITY,URINE SLIGHTLY CLOUDY (Clear); COLOR,URINE YELLOW (Yellow); GLUCOSE, URINE NEGATIVE (Neg); KETONES,URINE 40 mg/dl (Neg); LEUKOCYTE ESTERASE ,URINE NEGATIVE (Neg); NITRITES, URINE NEGATIVE (Neg); OCCULT BLOOD,URINE LARGE (Neg); PROTEIN,URINE 100 mg/dl (Neg)
[2020-05-19 14:49] LABS: ALANINE AMINOTRANSFERASE 80 U/L (12-78); ALBUMIN 3.9 G/DL (3.4-5.0); ALBUMIN/GLOBULIN RATIO 1.1 (1.1-1.5); ALKALINE PHOSPHATASE 77 IU/L (46-116); ANION GAP 11 (8-16); ASPARTATE AMINO TRANSFERASE 250 U/L (10-37); BILIRUBIN,TOTAL 0.7 MG/DL (0.1-1.0); BLOOD UREA NITROGEN 21 MG/DL (7-18); BUN/CREATININE RATIO 18.4 (6.6-38.0); CALCIUM 10.3 MG/DL (8.5-10.1); CHLORIDE 105 MMOL/L (99-107); CREATININE 1.14 MG/DL (0.40-0.90); GLUCOSE 106 MG/DL (70-104); LIPASE < 50 U/L (73-393); POTASSIUM 3.4 MMOL/L (3.5-5.1); SODIUM 139 MMOL/L (135-145); TOTAL CARBON DIOXIDE 22.7 MMOL/L (24-32); TOTAL PROTEIN 7.5 G/DL (6.4-8.2); eGFR 49 ML/MIN
[2020-05-19 14:51] LABS: UA COLLECTION TYPE STRAIGHT CATH
[2020-05-19 15:07] LABS: SQUAMOUS EPITHELIAL CELL,UR MODERATE /LPF (FEW)
[2020-05-19 15:08] LABS: HYALINE CASTS 0-3 /LPF (NEGATIVE); MUCUS STRANDS FEW /LPF (Neg)
[2020-05-19 15:10] LABS: BACTERIA,URINE FEW /HPF (Neg); WBC,URINE 0-4 /HPF (0-4)
[2020-05-19] MEDS ORDERED: normal saline 1000ml 1,000 ML IV ONE (15:20)
[2020-05-19 16:24] VITALS: BP 127/86
[2020-05-19 18:31] LABS: URINE AMPHETAMINE SCREEN NEGATIVE (Neg); URINE BARBITUATE SCREEN NEGATIVE (Neg); URINE BENZODIAZEPINES SCREEN NEGATIVE (Neg); URINE CANNABINOID SCREEN POSITIVE (Neg); URINE COCAINE SCREEN NEGATIVE (Neg); URINE METHADONE SCREEN NEGATIVE (Neg); URINE OPIATE SCREEN NEGATIVE (Neg); URINE PHENCYCLIDINE SCREEN NEGATIVE (Neg)
== END 2020-05-19 16:27 | disposition home or self-care (01) ==
LOC: ER 11:54
DX: S02.2XXA Fracture of nasal bones, initial encounter for closed fracture (principal); M54.2 Cervicalgia; I10 Essential (primary) hypertension; F41.9 Anxiety disorder, unspecified; F32.9 Major depressive disorder, single episode, unspecified; F20.9 Schizophrenia, unspecified; F12.90 Cannabis use, unspecified, uncomplicated; F15.90 Other stimulant use, unspecified, uncomplicated; F11.90 Opioid use, unspecified, uncomplicated; Z86.73 Personal history of transient ischemic attack (TIA), and cerebral infarction without residual deficits; Z86.69 Personal history of other diseases of the nervous system and sense organs; Z98.890 Other specified postprocedural states; Z72.89 Other problems related to lifestyle; Z79.899 Other long term (current) drug therapy; X58.XXXA Exposure to other specified factors, initial encounter; Y93.89 Activity, other specified; Y92.89 Other specified places as the place of occurrence of the external cause; Y99.8 Other external cause status
CPT/HCPCS: 36415; 70450; 70486; 72125; 80053; 80305; 81001; 83690; 85025; 96360; 99285; J7030

== ENCOUNTER → 2020-07-25 | Emergency (ER) | payer MEDICARE, MEDICAID ==
[~2020-07-25] VITALS: Ht 162.6 cm; Wt 72.7 kg
[2020-07-25 18:49] VITALS: BP 107/68
--- NOTE | 2020-07-25 22:17 | NUR ---
Mailbox is full. Not able to leave a message.
== END | disposition left against medical advice (07) ==
LOC: ER 18:45
DX: R45.851 Suicidal ideations (principal); Z53.21 Procedure and treatment not carried out due to patient leaving prior to being seen by health care provider

== ENCOUNTER 2020-09-16 02:14 | Emergency (ER) | payer MEDICARE, MEDICAID | END 2020-09-16 04:07 | disposition left against medical advice (07) | LOC: ER 02:15 | DX: M25.511 Pain in right shoulder (principal); Z53.21 Procedure and treatment not carried out due to patient leaving prior to being seen by health care provider ==

== ENCOUNTER → 2021-01-07 | Emergency (ER) | payer MEDICARE, MEDICAID | END | disposition left against medical advice (07) | LOC: ER 20:29 | DX: Z53.21 Procedure and treatment not carried out due to patient leaving prior to being seen by health care provider (principal) ==

== ENCOUNTER 2021-01-21 12:11 | Emergency (ER) | payer MEDICARE, MEDICAID ==
[~2021-01-21] VITALS: Ht 162.6 cm; Wt 76.6 kg
[2021-01-21 12:36] VITALS: BP 127/76
[2021-01-21] MEDS ORDERED: ondansetron 4mg rapidly disintigrating tab PO ONE (14:10)
[2021-01-21] MEDS ORDERED: ONDA4TAB6 PO (14:13)
[2021-01-21 14:39] LABS: BASOPHILS % (AUTO) 0.2 % (0-1); EOSINOPHILS # (AUTO) 0.1 X10'3 (0-0.9); EOSINOPHILS % (AUTO) 1.4 % (0-6); HEMATOCRIT 34.4 % (35.0-45.0); HEMOGLOBIN 11.7 g/dl (12.0-16.0); LYMPHOCYTES # (AUTO) 1.2 X10'3 (1.1-4.8); LYMPHOCYTES % (AUTO) 16.1 % (21-51); MEAN CORPUSCULAR HEMOGLOBIN 31.4 PG (27.0-31.0); MEAN CORPUSCULAR VOLUME 92.4 FL (78-98); MEAN PLATELET VOLUME 8.1 FL (7.4-10.4); MONOCYTES # (AUTO) 0.5 X10'3 (0-0.9); MONOCYTES % (AUTO) 6.2 % (2-12); NEUTROPHILS # (AUTO) 5.8 X10'3 (1.8-7.7); NEUTROPHILS % (AUTO) 76.1 % (42-75); PLATELET COUNT 234 X10'3 (140-440); RED BLOOD COUNT 3.73 X10'6 (4.20-5.60); RED CELL DISTRIBUTION WIDTH 12.8 % (11.5-14.5); WHITE BLOOD COUNT 7.6 X10'3 (4.5-11.0)
--- NOTE | 2021-01-21 14:47 | NUR ---
PT STARTED CHANTIX ON december COVID VACCINE 01-12-21, BUTRAM PATCH APPLIED ON 01-16-21. SICK SINCE Saturday01-16-21. POOR APPETITE, NO ABD PAIN.
[2021-01-21 14:54] LABS: ALANINE AMINOTRANSFERASE 17 U/L (12-78); ALBUMIN 3.8 G/DL (3.4-5.0); ALBUMIN/GLOBULIN RATIO 1.1 (1.1-1.5); ALKALINE PHOSPHATASE 59 IU/L (46-116); ANION GAP 4 (8-16); ASPARTATE AMINO TRANSFERASE 15 U/L (10-37); BILIRUBIN,TOTAL 0.4 MG/DL (0.1-1.0); BLOOD UREA NITROGEN 9 MG/DL (7-18); BUN/CREATININE RATIO 8.4 (6.6-38.0); CALCIUM 9.8 MG/DL (8.5-10.1); CHLORIDE 101 MMOL/L (99-107); CREATININE 1.07 MG/DL (0.40-0.90); GLUCOSE 109 MG/DL (70-104); POTASSIUM 4.6 MMOL/L (3.5-5.1); SODIUM 136 MMOL/L (135-145); TOTAL CARBON DIOXIDE 31.2 MMOL/L (24-32); TOTAL PROTEIN 7.3 G/DL (6.4-8.2); eGFR 52 ML/MIN
== END 2021-01-21 15:23 | disposition home or self-care (01) ==
LOC: ER 12:12
DX: R11.2 Nausea with vomiting, unspecified (principal); R19.7 Diarrhea, unspecified; G40.909 Epilepsy, unspecified, not intractable, without status epilepticus; I10 Essential (primary) hypertension; E07.9 Disorder of thyroid, unspecified; F17.200 Nicotine dependence, unspecified, uncomplicated; F12.90 Cannabis use, unspecified, uncomplicated; F15.90 Other stimulant use, unspecified, uncomplicated; Z98.890 Other specified postprocedural states; Z79.2 Long term (current) use of antibiotics; Z79.899 Other long term (current) drug therapy
CPT/HCPCS: 36415; 80053; 85025; 99283

== ENCOUNTER 2021-02-03 13:08 | Emergency (ER) | payer MEDICARE, MEDICAID ==
[~2021-02-03] VITALS: Ht 162.6 cm; Wt 73.0 kg
[~2021-02-03 13:08] MED LIST changes: +ONDA4TAB6 PO
[2021-02-03 13:26] VITALS: BP 132/75
[2021-02-04] MEDS ORDERED: LORA-269 PO (13:23)
[2021-02-04] MEDS ORDERED: BENZ1TAB7 PO (13:23)
[2021-02-04] MEDS ORDERED: MELO-102 PO (13:23)
[2021-02-04] MEDS ORDERED: DOCU-148 PO (13:23)
[2021-02-04] MEDS ORDERED: TRAZ150T78 PO (13:23)
== END 2021-02-03 17:10 | disposition left against medical advice (07) ==
LOC: ER 13:09
DX: Z53.21 Procedure and treatment not carried out due to patient leaving prior to being seen by health care provider (principal)

== ENCOUNTER 2021-02-04 00:25 | Emergency (ER) | payer MEDICARE, MEDICAID ==
[~2021-02-04] VITALS: Ht 162.6 cm; Wt 79.5 kg
[2021-02-04] MEDS ORDERED: normal saline 1000ml 1,000 ML IV ONE (01:30)
[2021-02-04] MEDS ORDERED: iohexol 300mg/ml 100ml inj. ONE (03:00)
--- NOTE | 2021-02-04 03:01 | NUR ---
cab called for patient 30 min wait. patient okay with that
[2021-02-04 03:05] LABS: BASOPHILS % (AUTO) 0.2 % (0-1); EOSINOPHILS % (AUTO) 0.1 % (0-6); HEMATOCRIT 31.8 % (35.0-45.0); HEMOGLOBIN 10.5 g/dl (12.0-16.0); LYMPHOCYTES # (AUTO) 0.9 X10'3 (1.1-4.8); LYMPHOCYTES % (AUTO) 9.4 % (21-51); MEAN CORPUSCULAR HEMOGLOBIN 31.2 PG (27.0-31.0); MEAN CORPUSCULAR HGB CONC 32.9 g/dL (33.0-36.5); MEAN CORPUSCULAR VOLUME 94.6 FL (78-98); MEAN PLATELET VOLUME 7.6 FL (7.4-10.4); MONOCYTES # (AUTO) 0.8 X10'3 (0-0.9); MONOCYTES % (AUTO) 8.3 % (2-12); NEUTROPHILS # (AUTO) 7.5 X10'3 (1.8-7.7); PLATELET COUNT 317 X10'3 (140-440); RED BLOOD COUNT 3.36 X10'6 (4.20-5.60); RED CELL DISTRIBUTION WIDTH 13.2 % (11.5-14.5); WHITE BLOOD COUNT 9.1 X10'3 (4.5-11.0)
[2021-02-04 03:17] LABS: ALBUMIN 3.8 G/DL (3.4-5.0); ANION GAP 8 (8-16); BLOOD UREA NITROGEN 22 MG/DL (7-18); BUN/CREATININE RATIO 17.5 (6.6-38.0); CALCIUM 9.5 MG/DL (8.5-10.1); CHLORIDE 106 MMOL/L (99-107); CREATININE 1.26 MG/DL (0.40-0.90); GLUCOSE 118 MG/DL (70-104); POTASSIUM 4.3 MMOL/L (3.5-5.1); SODIUM 141 MMOL/L (135-145); TOTAL CARBON DIOXIDE 26.9 MMOL/L (24-32); eGFR 43 ML/MIN
--- NOTE | 2021-02-04 04:57 | NUR ---
PT IS NOT ABLE TO FOLLOW DIRECTIONS TO STAY IN HER ROOM. SHE CONTINUES TO GET OUT OF BED DESPITE BEING TOLD REPEATEDLY TO SIT STILL. SHE HAS URINATED ALL OVER THE FLOOR AND IS NOT ABLE TO ANSWER QUESTIONS APPROPRIATELY. IT IS NOTED THAT SHE HAS A [facility] WRIST BAND ON. [employer] RECORDS SHOW THAT SHE DOESN'T PARTICPATE IN THE RECORDS SHARING. I CONTACTED [facility] WHO STATED THAT SHE WAS THERE ON A 5150 FROM [facility] AND THEN ELOPED FROM THEIR FACILITY. ALYSSIA WAS MADE AWARE OF HER ELOPMENT. I CONTA[facility]ED [facility] TO LET THEM KNOW SHE WAS NOT MISSING ANYMORE AND TO ALSO SEE IF THEY HAD ANY ADDITIONAL INFO ON THE PATIENT. AWAITING A CALL BACK AT THIS TIME.
[2021-02-04] MEDS ORDERED: OLANZapine **IM** 10 mg inj. IM ONE (06:00)
--- NOTE | 2021-02-04 06:13 | NUR ---
PT MOVED FROM BED 13 TO BED 15 FOR CLOSER OBSERVATION SECONDARY TO HER WANDERING. SHE IS PLACED IN NON-BEHAVORIAL RESTRAINTS SHE HAS FAILED LESS INVASIVE MEASURES AND WILL NOT FOLLOW SAFETY INSTRUCTIONS TO STAY IN BED\ROOM. SINCE BEING PLACED IN RESTRAINTS PT HAS REMAINED CALM AND APPEARS TO BE RESTING WITH EYES CLOSED.
--- NOTE | 2021-02-04 07:21 | NUR ---
PT RESTING ON BACK RR EQUAL. PT IN SOFT NON BEHAV. RESTRAINTS CSM WNL
--- NOTE | 2021-02-04 08:39 | NUR ---
IN TO STRAIGHT CATH PT PER ORDER. PT ATTEMPTING TO GET UP, UNABLE TO REDIRECT, SOFT WRIST NON BEHAV. REST CONTINUED. STRAIGHT CATH DONE UA OBTAINED AND SENT TO LAB. PT NOW RESTING ON BACK, RR EQUAL AND UNLABORED
[2021-02-04 10:43] LABS: CLARITY,URINE CLEAR (Clear); COLOR,URINE YELLOW (Yellow); GLUCOSE, URINE NEGATIVE (Neg); KETONES,URINE 15 mg/dl (Neg); LEUKOCYTE ESTERASE ,URINE NEGATIVE (Neg); NITRITES, URINE NEGATIVE (Neg); OCCULT BLOOD,URINE NEGATIVE (Neg); PROTEIN,URINE NEGATIVE (Neg)
[2021-02-04 10:45] LABS: UA COLLECTION TYPE OTHER
[2021-02-04 11:26] LABS: URINE AMPHETAMINE SCREEN NEGATIVE (Neg); URINE BARBITUATE SCREEN NEGATIVE (Neg); URINE BENZODIAZEPINES SCREEN NEGATIVE (Neg); URINE CANNABINOID SCREEN NEGATIVE (Neg); URINE COCAINE SCREEN NEGATIVE (Neg); URINE METHADONE SCREEN NEGATIVE (Neg); URINE OPIATE SCREEN NEGATIVE (Neg); URINE PHENCYCLIDINE SCREEN NEGATIVE (Neg)
--- NOTE | 2021-02-04 13:20 | NUR ---
PACKET SENT TO [facility]
[2021-02-04] MEDS ORDERED: DOCU-148 PO (13:23)
[2021-02-04] MEDS ORDERED: TRAZ150T78 PO (13:23)
[2021-02-04] MEDS ORDERED: MELO-102 PO (13:23)
[2021-02-04] MEDS ORDERED: LORA-269 PO (13:23)
[2021-02-04] MEDS ORDERED: BENZ1TAB7 PO (13:23)
--- NOTE | 2021-02-04 14:10 | NUR ---
PT transferred to Overflow. Pt walking around unit towards exits continuously. Pt redirected multiple times and fails to follow command. Pt states "I won't do it". RN explained to pt we will need to continue restraints if she continues wandering and trying to leave. Pt states " go ahead, I don't care. Non behavioral restraints placed one ankle one wrist. Pt lays in bed and restraints placed. Pt calm, cooperative states she feels comfortable.
--- NOTE | 2021-02-04 14:16 | NUR ---
Med rec signed per and faxed to pharm
--- NOTE | 2021-02-04 14:21 | NUR ---
Pt Workday Senior Associate is Chinyere. [phone]
--- NOTE | 2021-02-04 14:45 | NUR ---
Pt up to use bathroom. Pt ambulates to bathroom and back to bed with non behavioral restraints and pt went to sleep
[2021-02-04] MEDS: lithium carbonate 150mg capsule PO SCH (15:29)
--- NOTE | 2021-02-04 16:28 | NUR ---
Familia ahuja in [facility] - 02/04/21 at 1629 by [email or web address] Pt given meds po, then goes back to sleep
--- NOTE | 2021-02-04 16:30 | NUR ---
Pt given po meds, then goes back to sleep
--- NOTE | 2021-02-04 16:47 | NUR ---
Pt restraints off for trial and pt continues to wander aimless, confused. Non behavioral Restraints placed again. PT calm, resting in bed.
--- NOTE | 2021-02-04 17:47 | NUR ---
Pt continues to perseverate for staff to help her call a number that she can't remember and starts crying that "you won't help me". RN offers pt Ativan and pt refuses.
[2021-02-04] MEDS: LORazepam 1 MG tablet PO PRN (18:42)
--- NOTE | 2021-02-04 19:00 | NUR ---
Patient sitting up and down- states "I want to lay down to go to bed" redirected to lay back down as she is already in bed. Easily redirected but needing constant redirection.
[2021-02-04] MEDS: docusate sod 100mg capsule PO SCH (19:53)
[2021-02-04] MEDS: traZODone 150mg tablet PO SCH (20:11)
[2021-02-04] MEDS: benztropine 1mg tablet PO SCH (20:11)
[2021-02-04] MEDS: temazepam 15mg capsule PO SCH (20:11)
[2021-02-04] MEDS: propranolol 40mg tablet PO SCH (20:11)
--- NOTE | 2021-02-04 20:34 | NUR ---
Patient ambulatory to and from bathroom with steady gait.
--- NOTE | 2021-02-04 22:23 | NUR ---
Patient resting in bed, even and unlabored respirations.
--- NOTE | 2021-02-05 01:07 | NUR ---
Patient laying in bed, even and unlabored respirations. Appears to be asleep.
--- NOTE | 2021-02-05 03:14 | NUR ---
Patient laying in bed, even and unlabored respirations. Has mumbled occasionally but appears to be asleep.
--- NOTE | 2021-02-05 04:29 | NUR ---
Patient awoke abruptly stating "I've got to go to the bathroom". Walked to the bathroom with slow steady gait.
--- NOTE | 2021-02-05 07:00 | NUR ---
Received pt asleep in bed in no distress.
[2021-02-05] MEDS: Meloxicam 15 MG TAB PO SCH (08:00)
--- NOTE | 2021-02-05 09:00 | NUR ---
Pt did not awake for breakfast or medications. No distress noted.
[2021-02-05] MEDS: docusate sod 100mg capsule PO SCH ×2 (10:13→19:08)
[2021-02-05] MEDS: levoTHYROXINE 100mcg tablet PO SCH (10:13)
[2021-02-05] MEDS: benztropine 1mg tablet PO SCH ×2 (10:13→19:08)
[2021-02-05] MEDS: propranolol 40mg tablet PO SCH ×2 (10:13→19:09)
[2021-02-05] MEDS: lithium carbonate 150mg capsule PO SCH (10:14)
--- NOTE | 2021-02-05 11:00 | NUR ---
Pt awoke and took medications and then returned to sleep.
--- NOTE | 2021-02-05 13:00 | NUR ---
Pt remains asleep without complaints.
--- NOTE | 2021-02-05 15:00 | NUR ---
Pt up to use the bathroom and interacted a little with staff without making much sense. Pt now sleeping again.
--- NOTE | 2021-02-05 17:00 | NUR ---
Quietly laying in bed without complaints.
[2021-02-05] MEDS: traZODone 150mg tablet PO SCH (19:08)
[2021-02-05] MEDS: temazepam 15mg capsule PO SCH (19:08)
[2021-02-05] MEDS: LORazepam 1 MG tablet PO PRN (19:08)
--- NOTE | 2021-02-05 19:37 | NUR ---
Patient wandering the cash stating "my rn case management got special persmission- they talked earlier and said she was coming tonight at 8. I don't know why you say I am lying- just call Kaela [phone]". Encouraged that visiting hours are over at 8pm and tonight is Saturday so that is unlikely as the previous nurse did not mention any of this. Patient states "well fine- I know I am leaving tommorrow, I should've gone to [facility]." When offered her medications she originally stated "I refuse everything- I have the right to refuse treatments since you won't do anything for me". Encouraged that we tried to call Kaela but there was no answer so patient then took her medications with no issue.
--- NOTE | 2021-02-05 21:14 | NUR ---
Patient woke up and sat up in bed abruptly stating "I want to get up to grab some oatmeal". Encouraged it is past 9pm and there is no oatmeal so she should go back to rest. Patient now laying back down, resting quietly, even and unlabored respirations.
--- NOTE | 2021-02-05 22:41 | NUR ---
Patient ambulatory to and from bathroom with minimal assistance, simply requiring some guidance. Noted that her scrubs were soiled with food and she appears to have spilled water on her shoulder so scrubs and bed linens were changed. No further needs at this time.
--- NOTE | 2021-02-05 23:27 | NUR ---
Patient stating she used to take three stool softeners a day. Provided with prune juice. Has been back and forth to that bathroom several times. Has only voided at this time. Encouraged to try to sit on the toilet for longer.
--- NOTE | 2021-02-06 01:09 | NUR ---
Patient turned over laying on her left side, even and unlabored respirations. Resting quietly at this time.
--- NOTE | 2021-02-06 03:05 | NUR ---
Patient resting quietly in bed- appears to be sleeping at this time.
--- NOTE | 2021-02-06 05:03 | NUR ---
Patient resting quietly in bed, even and unlabored respiraitons, appears to be sleeping.
--- NOTE | 2021-02-06 07:00 | NUR ---
Received Pt in bed sleeping w/o distress.
[2021-02-06] MEDS: Meloxicam 15 MG TAB PO SCH (08:00)
[2021-02-06] MEDS: propranolol 40mg tablet PO SCH ×2 (08:52→20:20)
[2021-02-06] MEDS: docusate sod 100mg capsule PO SCH ×2 (08:52→20:20)
[2021-02-06] MEDS: levoTHYROXINE 100mcg tablet PO SCH (08:52)
[2021-02-06] MEDS: lithium carbonate 150mg capsule PO SCH (08:52)
[2021-02-06] MEDS: benztropine 1mg tablet PO SCH ×2 (08:52→20:20)
--- NOTE | 2021-02-06 10:00 | NUR ---
Pt woke an was irritable and rude with staff. She calmed intermitently and took AM meds. Pt ate part of breakfast and spoke with staff at [facility]. Pt returned to sleeping.
--- NOTE | 2021-02-06 13:38 | NUR ---
rotary shear worker helper Chinyere came to visit with pt.
--- NOTE | 2021-02-06 13:51 | NUR ---
Pt napped and woke for lunch. Pt used toilet and assisted in ambulation. Pt reactive and demanding at times. She was visited by porter sample case from [facility]. Overall, Pt wants to leave and flower buncher or picker her check.
--- NOTE | 2021-02-06 16:36 | NUR ---
Pt woke from nap and made demands. Pt used bathroom and returned to bed and was repositioned higher. Pt appears to have fallen asleep again.
--- NOTE | 2021-02-06 19:00 | NUR ---
Pt at bedside finishing dinner, using the phone. Pt resting at this time, no distress noted.
[2021-02-06] MEDS: temazepam 15mg capsule PO SCH (20:20)
[2021-02-06] MEDS: traZODone 150mg tablet PO SCH (20:20)
--- NOTE | 2021-02-06 21:15 | NUR ---
Pt appears to be resting comfortably. No distess noted.
--- NOTE | 2021-02-06 21:15 | NUR ---
Pt appears to be resting comfortably.
--- NOTE | 2021-02-06 23:05 | NUR ---
Pt resting comfortably, no distress noted.
--- NOTE | 2021-02-07 02:15 | NUR ---
Pt would wake up and state she needed help to use the restroom and then change her mind.
--- NOTE | 2021-02-07 02:22 | NUR ---
Pt up to use the restroom with assistance from DIANE Lopez. Pt back to bed sleeping comfortably.
--- NOTE | 2021-02-07 04:45 | NUR ---
Pt sleeping, no signs of distress.
[2021-02-07 05:56] VITALS: BP 101/71
--- NOTE | 2021-02-07 06:45 | NUR ---
PT AWAKE AND REQUESTING TO MAKE PHONE CALL SINCE ARRIVAL TO SHIFT. PT FREQUENTLY REMINDED PHONE CALLS CAN BE MADE AFTER 8AM
[2021-02-07] MEDS: docusate sod 100mg capsule PO SCH (07:56)
[2021-02-07] MEDS: levoTHYROXINE 100mcg tablet PO SCH (07:56)
[2021-02-07] MEDS: benztropine 1mg tablet PO SCH (07:56)
[2021-02-07] MEDS: propranolol 40mg tablet PO SCH (07:56)
[2021-02-07] MEDS: LORazepam 1 MG tablet PO PRN (07:56)
[2021-02-07] MEDS: lithium carbonate 150mg capsule PO SCH (07:56)
[2021-02-07] MEDS: Meloxicam 15 MG TAB PO SCH (07:57)
--- NOTE | 2021-02-07 08:05 | NUR ---
AFTER NUMEROUS REQUESTS PT GIVEN PHONE FOR PHONE CALLS. PT REQUIRES ASSISTANCE WITH DIALING NUMBERS. NUMBERS CALLED WERE NOT ANSWERED.
--- NOTE | 2021-02-07 08:15 | NUR ---
PT NOTED WITH FECES UNDER NAILS. TECH/SITTER ASSIST PT WITH CLEANING OF NAILS AND NAILS TRIMMED
--- NOTE | 2021-02-07 09:15 | NUR ---
PT ATE BREAKFAST TRAY, RESTED IN BED AND NOW SITTING UP BEING ASSITED WITH CALLING PHONE NUMBERS.
--- NOTE | 2021-02-07 11:00 | NUR ---
PT HAS BEEN UP WALKING, WENT TO RESTROOM AND NOW BACK IN BED RESTING.
--- NOTE | 2021-02-07 12:32 | NUR ---
PT LAYING ON SIDE RESTING, EFFORTLESS RESPIRATIONS OBSERVED.
[2021-02-07] MEDS: naproxen 375mg tablet PO SCH ×2 (14:30→15:03)
--- NOTE | 2021-02-07 15:33 | NUR ---
ARELIS (FROM [facility]) [phone]
--- NOTE | 2021-02-07 15:35 | NUR ---
PT BEING SEEN BY [facility] WORKER ANITA FOR RE-EVAL OF [phone]
[2021-03-05] MEDS ORDERED: paliperidone palmitate inj 234 MG/1.5 ML SYRINGE IM SCH (10:00)
== END 2021-02-07 16:49 | disposition home or self-care (01) ==
LOC: ER 00:27
DX: R10.84 Generalized abdominal pain (principal); Z20.822 Contact with and (suspected) exposure to COVID-19; F20.9 Schizophrenia, unspecified; R41.82 Altered mental status, unspecified; R14.0 Abdominal distension (gaseous); I10 Essential (primary) hypertension; F41.9 Anxiety disorder, unspecified; F32.9 Major depressive disorder, single episode, unspecified; F12.90 Cannabis use, unspecified, uncomplicated; F15.90 Other stimulant use, unspecified, uncomplicated; F11.90 Opioid use, unspecified, uncomplicated; Z98.890 Other specified postprocedural states; Z72.89 Other problems related to lifestyle; Z86.73 Personal history of transient ischemic attack (TIA), and cerebral infarction without residual deficits; Z86.69 Personal history of other diseases of the nervous system and sense organs; Z79.899 Other long term (current) drug therapy
CPT/HCPCS: 36415; 71045; 74177; 80048; 80305; 80320; 81003; 84443; 85025; 87635; 96360; 96361; 96372; 99285; C9803; J3490; J7030; Q9967

== ENCOUNTER 2021-02-12 19:38 | Emergency (ER) | payer MEDICARE, MEDICAID ==
[~2021-02-12] VITALS: Ht 162.6 cm; Wt 71.0 kg
[~2021-02-12 19:38] MED LIST changes: +BENZ1TAB7 PO; +DOCU-148 PO; +LORA-269 PO; -MELO-100 PO; +MELO-102 PO; -ONDA4TAB6 PO; +TRAZ150T78 PO; -TRAZ300T2 PO
[2021-02-12] MEDS ORDERED: diazepam 5mg tablet PO ONE (20:05)
[2021-02-12] MEDS ORDERED: meclizine 12.5mg tablet PO ONE (20:05)
[2021-02-12] MEDS ORDERED: ONDA4TAB6 PO (21:33)
[2021-02-12] MEDS ORDERED: DIAZ5TAB22 PO (21:33)
[2021-02-12] MEDS ORDERED: MECL-159 PO (21:33)
[2021-02-12 22:19] VITALS: BP 104/84
== END 2021-02-12 22:23 | disposition home or self-care (01) ==
LOC: ER 19:39
DX: H81.10 Benign paroxysmal vertigo, unspecified ear (principal); Z20.822 Contact with and (suspected) exposure to COVID-19; R11.2 Nausea with vomiting, unspecified; R19.7 Diarrhea, unspecified; R43.8 Other disturbances of smell and taste; I10 Essential (primary) hypertension; F41.9 Anxiety disorder, unspecified; F32.9 Major depressive disorder, single episode, unspecified; F20.9 Schizophrenia, unspecified; F12.90 Cannabis use, unspecified, uncomplicated; F15.90 Other stimulant use, unspecified, uncomplicated; F11.90 Opioid use, unspecified, uncomplicated; Z86.73 Personal history of transient ischemic attack (TIA), and cerebral infarction without residual deficits; Z86.69 Personal history of other diseases of the nervous system and sense organs; Z98.890 Other specified postprocedural states; Z72.89 Other problems related to lifestyle; Z79.899 Other long term (current) drug therapy
CPT/HCPCS: 87635; 99285; C9803; J8597

== ENCOUNTER 2021-02-19 06:38 | Emergency (ER) | payer MEDICARE, MEDICAID ==
[~2021-02-19] VITALS: Ht 162.6 cm; Wt 85.0 kg
[~2021-02-19 06:38] MED LIST changes: +DIAZ5TAB22 PO; +MECL-159 PO; +ONDA4TAB6 PO
[2021-02-19 06:43] VITALS: BP 108/73
--- NOTE | 2021-02-19 09:15 | NUR ---
DANIA LOZOYA WITH SCRIBE AT BEDSIDE.
[2021-02-19] MEDS ORDERED: ketorolac tromethamine 15mg/ml inj. IM ONE (09:20)
[2021-02-19] MEDS ORDERED: acetaminophen 325mg tablet PO ONE (09:20)
--- NOTE | 2021-02-19 09:55 | NUR ---
NOTIFIED THE PROVIDER REGARDING PT GAIT TEST .
--- NOTE | 2021-02-19 09:57 | NUR ---
PT LEFT THE ROOM WITHOUT D/C PAPERWORK .
== END 2021-02-19 10:14 | disposition home or self-care (01) ==
LOC: ER 06:39
DX: M25.561 Pain in right knee (principal); M25.562 Pain in left knee; M25.511 Pain in right shoulder; I10 Essential (primary) hypertension; F41.9 Anxiety disorder, unspecified; F32.9 Major depressive disorder, single episode, unspecified; F20.9 Schizophrenia, unspecified; F12.10 Cannabis abuse, uncomplicated; F15.10 Other stimulant abuse, uncomplicated; F11.10 Opioid abuse, uncomplicated; Z79.899 Other long term (current) drug therapy
CPT/HCPCS: 96372; 99283; J1885; 96376

== ENCOUNTER 2021-02-20 15:46 | Emergency (ER) | payer MEDICARE, MEDICAID ==
[~2021-02-20] VITALS: Ht 162.6 cm; Wt 68.2 kg
[~2021-02-20 15:46] MED LIST changes: -ACET-1131 PO; -ACET-1133 PO; -BUPR1PAT22 TOP; -MELO-100 PO; -SENN-173 PO; -SENN-263 PO; -TRAZ-251 PO; -TRAZ-256 PO; -TRAZ300T2 PO
[2021-02-20 15:59] VITALS: BP 93/73
[2021-02-21] MEDS ORDERED: BUPR1PAT22 TOP (21:13)
== END 2021-02-20 16:08 | disposition home or self-care (01) ==
LOC: ER 15:47
DX: G89.29 Other chronic pain (principal); M25.561 Pain in right knee; M25.562 Pain in left knee; F15.10 Other stimulant abuse, uncomplicated; F20.9 Schizophrenia, unspecified; F12.90 Cannabis use, unspecified, uncomplicated; F11.90 Opioid use, unspecified, uncomplicated; G40.909 Epilepsy, unspecified, not intractable, without status epilepticus; Z86.73 Personal history of transient ischemic attack (TIA), and cerebral infarction without residual deficits; Z79.899 Other long term (current) drug therapy
CPT/HCPCS: 99281

== ENCOUNTER → 2021-02-20 | Emergency (ER) | payer MEDICARE, MEDICAID ==
[~2021-02-20] MED LIST changes: +ACET-1131 PO; +ACET-1133 PO; +BUPR1PAT22 TOP; +MELO-100 PO; +SENN-173 PO; +SENN-263 PO; +TRAZ-251 PO; +TRAZ-256 PO; +TRAZ300T2 PO
== END | disposition left against medical advice (07) ==
LOC: ER 05:45
DX: M25.579 Pain in unspecified ankle and joints of unspecified foot (principal); Z53.21 Procedure and treatment not carried out due to patient leaving prior to being seen by health care provider

== ENCOUNTER 2021-02-21 10:58 | Emergency (ER) | payer MEDICARE, MEDICAID ==
[~2021-02-21] VITALS: Ht 162.6 cm; Wt 77.3 kg
[2021-02-21 11:25] VITALS: BP 132/78
[2021-02-21] MEDS ORDERED: BUPR1PAT22 TOP (21:13)
== END 2021-02-21 13:36 | disposition left against medical advice (07) ==
LOC: ER 10:59
DX: M25.562 Pain in left knee (principal); M25.561 Pain in right knee; G89.29 Other chronic pain; M25.511 Pain in right shoulder; I10 Essential (primary) hypertension; F41.9 Anxiety disorder, unspecified; F32.9 Major depressive disorder, single episode, unspecified; F20.9 Schizophrenia, unspecified; F12.90 Cannabis use, unspecified, uncomplicated; F15.90 Other stimulant use, unspecified, uncomplicated; F11.90 Opioid use, unspecified, uncomplicated; Z86.73 Personal history of transient ischemic attack (TIA), and cerebral infarction without residual deficits; Z86.69 Personal history of other diseases of the nervous system and sense organs; Z98.890 Other specified postprocedural states; Z72.89 Other problems related to lifestyle; Z79.899 Other long term (current) drug therapy
CPT/HCPCS: 99283

== ENCOUNTER 2021-02-21 16:14 | Inpatient (IN) | payer MEDICARE, MEDICAID ==
[~2021-02-21] VITALS: Ht 172.7 cm; Wt 65.0 kg
[2021-02-21] MEDS ORDERED: normal saline 1000ML IV soln IVB ONE (16:20)
[2021-02-21] MEDS ORDERED: normal saline 1000ML IV soln IV ONE (16:25)
[2021-02-21 17:17] LABS: ALANINE AMINOTRANSFERASE 30 U/L (12-78); ALBUMIN 4.2 G/DL (3.4-5.0); ALBUMIN/GLOBULIN RATIO 1.2 (1.1-1.5); ALKALINE PHOSPHATASE 78 IU/L (46-116); ANION GAP 9 (8-16); ASPARTATE AMINO TRANSFERASE 39 U/L (10-37); BILIRUBIN,TOTAL 0.6 MG/DL (0.1-1.0); BLOOD UREA NITROGEN 35 MG/DL (7-18); BUN/CREATININE RATIO 20.2 (6.6-38.0); CALCIUM 9.8 MG/DL (8.5-10.1); CHLORIDE 103 MMOL/L (99-107); CREATININE 1.73 MG/DL (0.40-0.90); GLUCOSE 107 MG/DL (70-104); POTASSIUM 3.8 MMOL/L (3.5-5.1); SODIUM 138 MMOL/L (135-145); TOTAL CARBON DIOXIDE 25.9 MMOL/L (24-32); TOTAL PROTEIN 7.7 G/DL (6.4-8.2); eGFR 30 ML/MIN
[2021-02-21 17:20] LABS: BASOPHILS % (AUTO) 0.2 % (0-1); EOSINOPHILS % (AUTO) 0 % (0-6); HEMATOCRIT 33.9 % (35.0-45.0); HEMOGLOBIN 11.2 g/dl (12.0-16.0); LYMPHOCYTES # (AUTO) 0.8 X10'3 (1.1-4.8); LYMPHOCYTES % (AUTO) 8.8 % (21-51); MEAN CORPUSCULAR HEMOGLOBIN 30.3 PG (27.0-31.0); MEAN CORPUSCULAR HGB CONC 32.9 g/dL (33.0-36.5); MEAN CORPUSCULAR VOLUME 92.1 FL (78-98); MEAN PLATELET VOLUME 7.5 FL (7.4-10.4); MONOCYTES # (AUTO) 0.6 X10'3 (0-0.9); MONOCYTES % (AUTO) 6.9 % (2-12); NEUTROPHILS # (AUTO) 7.6 X10'3 (1.8-7.7); NEUTROPHILS % (AUTO) 84.1 % (42-75); PLATELET COUNT 333 X10'3 (140-440); RED BLOOD COUNT 3.68 X10'6 (4.20-5.60); RED CELL DISTRIBUTION WIDTH 13.2 % (11.5-14.5)
[2021-02-21 17:33] LABS: CREATINE KINASE 1058 U/L (26-192)
[2021-02-21 17:39] LABS: ETHANOL < 0.010 GM/DL (0.0-0.010)
[2021-02-21 18:10] LABS: TROPONIN I < 0.04 NG/ML (0.0-0.05)
[2021-02-21 20:08] LABS: URINE AMPHETAMINE SCREEN NEGATIVE (Neg); URINE BARBITUATE SCREEN NEGATIVE (Neg); URINE BENZODIAZEPINES SCREEN POSITIVE (Neg); URINE CANNABINOID SCREEN NEGATIVE (Neg); URINE COCAINE SCREEN NEGATIVE (Neg); URINE METHADONE SCREEN NEGATIVE (Neg); URINE OPIATE SCREEN NEGATIVE (Neg); URINE PHENCYCLIDINE SCREEN NEGATIVE (Neg)
[2021-02-21 20:39] LABS: CLARITY,URINE SLIGHTLY CLOUDY (Clear); COLOR,URINE YELLOW (Yellow); UA COLLECTION TYPE STRAIGHT CATH
[2021-02-21 20:40] LABS: GLUCOSE, URINE Negative (Neg); PROTEIN,URINE TRACE mg/dl (Neg)
[2021-02-21 20:41] LABS: KETONES,URINE TRACE mg/dl (Neg); LEUKOCYTE ESTERASE ,URINE NEGATIVE (Neg); NITRITES, URINE NEGATIVE (Neg); OCCULT BLOOD,URINE NEGATIVE (Neg); UROBILINOGEN,URINE 0.2 E.U/dL (0.2-1.0)
[2021-02-21 20:47] LABS: BACTERIA,URINE 1+ /HPF (Neg); RBC,URINE NONE SEEN /HPF (0-2); WBC,URINE 0-4 /HPF (0-4)
[2021-02-21 20:48] LABS: MUCUS STRANDS FEW /LPF (Neg); SQUAMOUS EPITHELIAL CELL,UR FEW /LPF (FEW)
[2021-02-21] MEDS ORDERED: acetaminophen 325mg tablet PO PRN ×2 (21:05)
[2021-02-21] MEDS ORDERED: magnesium 4gm in 100ml NS 100 ML IV PRN (21:05)
[2021-02-21] MEDS ORDERED: potassium Cl 40MEQ/1/2NS 520ml 520 ML IV PRN ×2 (21:05)
[2021-02-21] MEDS ORDERED: magnesium 2GM in 50ml NS 50 ML IV PRN (21:05)
[2021-02-21] MEDS ORDERED: ondansetron/PF 4mg/2ml inj IV PRN (21:05)
[2021-02-21] MEDS: normal saline 1000ml 1,000 ML IV SCH (21:05)
[2021-02-21] MEDS ORDERED: magnesium Cl slow-release 64mg tablet PO PRN (21:05)
[2021-02-21] MEDS ORDERED: potassium Cl 20 mEq SR tablet PO PRN ×2 (21:05)
[2021-02-21] MEDS ORDERED: BUPR1PAT22 TOP (21:13)
[2021-02-21] MEDS ORDERED: albuterol 2.5 MG/3 ML nebule NEB PRN (21:40)
--- NOTE | 2021-02-22 00:43 | NUR ---
Pt arrived in OF from ED. Pt is asking to go home then goes back to sleep. RR even and unlabored.
[2021-02-22] MEDS: normal saline 1000ml 1,000 ML IV SCH ×3 (03:46→21:09)
--- NOTE | 2021-02-22 04:57 | NUR ---
Pt has been sleeping all night, she is now awake asking to get up. States she wants walk around. Pt is assisted with repositioning in bed. She is c/o being cold and was given warm blankets.
--- NOTE | 2021-02-22 05:51 | NUR ---
PT MOVED BACK TO BED 2 ER.
[2021-02-22 06:33] LABS: BASOPHILS % (AUTO) 0.3 % (0-1); EOSINOPHILS % (AUTO) 0.8 % (0-6); HEMATOCRIT 28.6 % (35.0-45.0); HEMOGLOBIN 9.5 g/dl (12.0-16.0); LYMPHOCYTES % (AUTO) 17.1 % (21-51); MEAN CORPUSCULAR HEMOGLOBIN 31.3 PG (27.0-31.0); MEAN CORPUSCULAR HGB CONC 33.1 g/dL (33.0-36.5); MEAN CORPUSCULAR VOLUME 94.6 FL (78-98); MEAN PLATELET VOLUME 7.6 FL (7.4-10.4); MONOCYTES # (AUTO) 0.5 X10'3 (0-0.9); MONOCYTES % (AUTO) 9.1 % (2-12); NEUTROPHILS # (AUTO) 4.3 X10'3 (1.8-7.7); NEUTROPHILS % (AUTO) 72.7 % (42-75); PLATELET COUNT 263 X10'3 (140-440); RED BLOOD COUNT 3.02 X10'6 (4.20-5.60); RED CELL DISTRIBUTION WIDTH 13.3 % (11.5-14.5)
[2021-02-22 06:39] LABS: ALANINE AMINOTRANSFERASE 26 U/L (12-78); ALBUMIN/GLOBULIN RATIO 1.1 (1.1-1.5); ALKALINE PHOSPHATASE 63 IU/L (46-116); ANION GAP 8 (8-16); ASPARTATE AMINO TRANSFERASE 38 U/L (10-37); BILIRUBIN,TOTAL 0.6 MG/DL (0.1-1.0); BLOOD UREA NITROGEN 24 MG/DL (7-18); BUN/CREATININE RATIO 20.5 (6.6-38.0); CALCIUM 8.2 MG/DL (8.5-10.1); CHLORIDE 109 MMOL/L (99-107); CREATININE 1.17 MG/DL (0.40-0.90); GLUCOSE 92 MG/DL (70-104); MAGNESIUM 2.3 MG/DL (1.5-2.4); POTASSIUM 3.4 MMOL/L (3.5-5.1); SODIUM 141 MMOL/L (135-145); TOTAL CARBON DIOXIDE 24.2 MMOL/L (24-32); TOTAL PROTEIN 5.7 G/DL (6.4-8.2); eGFR 47 ML/MIN
[2021-02-22] MEDS: K and/or MAG REPLACEMENT MC SCH ×2 (08:00→20:00)
--- NOTE | 2021-02-22 10:32 | NUR ---
paged regarding diet PAGER ID: [phone] MESSAGE: room 3028B, patient is NPO because on admit she was suspected of OD. tox returns were pos for benzo and alcohol. can we order her a diet? thank you, Ruth BANKS [phone]
[2021-02-22] MEDS: CefTRIAXone 2gm/D5W 50ml BAG 50 ML IV SCH (11:55)
[2021-02-22] MEDS: benztropine 1mg tablet PO SCH ×2 (11:56→21:08)
[2021-02-22] MEDS: levoTHYROXINE 100mcg tablet PO SCH (11:56)
[2021-02-22] MEDS: propranolol 10mg tablet PO SCH ×2 (11:56→20:00)
[2021-02-22] MEDS: lithium carbonate 150mg capsule PO SCH (11:57)
[2021-02-22] MEDS: heparin, porcine 5000 units/ml vial SQ SCH ×2 (11:58→21:08)
[2021-02-22 12:00] VITALS: BP 87/53
[2021-02-22 15:00] VITALS: BP 106/66
[2021-02-22 18:00] VITALS: BP 93/53
--- NOTE | 2021-02-22 18:30 | NUR ---
Patient in room PCU 3028. I have received report from Ruth BANKS and had the opportunity to ask questions and assume patient care.
[2021-02-22 22:00] VITALS: BP 96/52
[2021-02-23 02:00] VITALS: BP 106/64
[2021-02-23 06:00] VITALS: BP 104/60
[2021-02-23 06:02] LABS: BASOPHILS % (AUTO) 0.8 % (0-1); EOSINOPHILS # (AUTO) 0.1 X10'3 (0-0.9); HEMATOCRIT 27.1 % (35.0-45.0); HEMOGLOBIN 8.8 g/dl (12.0-16.0); LYMPHOCYTES # (AUTO) 1.4 X10'3 (1.1-4.8); LYMPHOCYTES % (AUTO) 26.8 % (21-51); MEAN CORPUSCULAR HEMOGLOBIN 30.4 PG (27.0-31.0); MEAN CORPUSCULAR HGB CONC 32.5 g/dL (33.0-36.5); MEAN CORPUSCULAR VOLUME 93.6 FL (78-98); MEAN PLATELET VOLUME 8.1 FL (7.4-10.4); MONOCYTES # (AUTO) 0.4 X10'3 (0-0.9); MONOCYTES % (AUTO) 7.6 % (2-12); NEUTROPHILS # (AUTO) 3.2 X10'3 (1.8-7.7); NEUTROPHILS % (AUTO) 62.8 % (42-75); PLATELET COUNT 226 X10'3 (140-440); RED BLOOD COUNT 2.89 X10'6 (4.20-5.60); RED CELL DISTRIBUTION WIDTH 13.4 % (11.5-14.5); WHITE BLOOD COUNT 5.1 X10'3 (4.5-11.0)
--- NOTE | 2021-02-23 06:22 | NUR ---
Problems reprioritized. Patient report given, questions answered & plan of care reviewed with Katerina BANKS.
[2021-02-23 06:23] LABS: ALANINE AMINOTRANSFERASE 27 U/L (12-78); ALBUMIN 2.6 G/DL (3.4-5.0); ALKALINE PHOSPHATASE 56 IU/L (46-116); ANION GAP 7 (8-16); ASPARTATE AMINO TRANSFERASE 28 U/L (10-37); BILIRUBIN,TOTAL 0.3 MG/DL (0.1-1.0); BLOOD UREA NITROGEN 15 MG/DL (7-18); BUN/CREATININE RATIO 15.3 (6.6-38.0); CALCIUM 7.9 MG/DL (8.5-10.1); CHLORIDE 113 MMOL/L (99-107); CREATINE KINASE 482 U/L (26-192); CREATININE 0.98 MG/DL (0.40-0.90); GLUCOSE 88 MG/DL (70-104); MAGNESIUM 2.2 MG/DL (1.5-2.4); POTASSIUM 3.7 MMOL/L (3.5-5.1); SODIUM 141 MMOL/L (135-145); TOTAL CARBON DIOXIDE 21.1 MMOL/L (24-32); TOTAL PROTEIN 5.2 G/DL (6.4-8.2); eGFR 58 ML/MIN
--- NOTE | 2021-02-23 06:26 | NUR ---
Patient in room PCU 3028. I have received report from duane bermudez and had the opportunity to ask questions and assume patient care.
[2021-02-23] MEDS: normal saline 1000ml 1,000 ML IV SCH ×2 (07:09→12:19)
[2021-02-23] MEDS: K and/or MAG REPLACEMENT MC SCH ×2 (08:00→20:00)
[2021-02-23] MEDS: heparin, porcine 5000 units/ml vial SQ SCH ×2 (08:00→20:41)
[2021-02-23] MEDS: levoTHYROXINE 100mcg tablet PO SCH (08:51)
[2021-02-23] MEDS: lithium carbonate 150mg capsule PO SCH (08:54)
[2021-02-23] MEDS: CefTRIAXone 2gm/D5W 50ml BAG 50 ML IV SCH (08:54)
[2021-02-23] MEDS: propranolol 10mg tablet PO SCH ×2 (08:59→20:40)
[2021-02-23] MEDS: benztropine 1mg tablet PO SCH ×2 (08:59→20:41)
--- NOTE | 2021-02-23 11:15 | NUR ---
patient refused vitals, will attempt vital signs again later
--- NOTE | 2021-02-23 12:48 | NUR ---
PAGER ID: [phone] MESSAGE: Katerina BANKS [phone] re: Heather ennis 3028B. Pt diet is NPO, may pt eat? THANK YOU.
--- NOTE | 2021-02-23 13:56 | NUR ---
PAGER ID: [phone] MESSAGE: Katerina bermudez [phone] re: Heather Gillespie 3028B. Pt states shes leaving, yelling at staff in [facility]. Please advise.
[2021-02-23] MEDS ORDERED: haloperidol lactate 5mg/ml inj IM PRN (14:00)
[2021-02-23] MEDS ORDERED: haloperidol lactate 5mg/ml inj IM ONE (14:00)
[2021-02-23 15:30] VITALS: BP 104/68
[2021-02-23 18:00] VITALS: BP 100/64
--- NOTE | 2021-02-23 18:29 | NUR ---
Problems reprioritized. Patient report given, questions answered & plan of care reviewed with Vicki Cohen RN.
--- NOTE | 2021-02-23 18:30 | NUR ---
Patient in room PCU 3028. I have received report from YOSSI BANKS and had the opportunity to ask questions and assume patient care.
[2021-02-23 22:00] VITALS: BP 108/66
[2021-02-24] MEDS: normal saline 1000ml 1,000 ML IV SCH (00:10)
[2021-02-24 02:00] VITALS: BP 108/64
[2021-02-24 06:00] VITALS: BP 104/60
--- NOTE | 2021-02-24 06:10 | NUR ---
Problems reprioritized. Patient report given, questions answered & plan of care reviewed with YOSSI BANKS.
--- NOTE | 2021-02-24 06:12 | NUR ---
Patient in room PCU 3028. I have received report from Vicki Cohen RN and had the opportunity to ask questions and assume patient care.
[2021-02-24 06:18] LABS: BASOPHILS % (AUTO) 0.5 % (0-1); EOSINOPHILS # (AUTO) 0.1 X10'3 (0-0.9); EOSINOPHILS % (AUTO) 2.2 % (0-6); HEMATOCRIT 28.2 % (35.0-45.0); HEMOGLOBIN 9.2 g/dl (12.0-16.0); LYMPHOCYTES # (AUTO) 1.5 X10'3 (1.1-4.8); LYMPHOCYTES % (AUTO) 30.7 % (21-51); MEAN CORPUSCULAR HEMOGLOBIN 30.9 PG (27.0-31.0); MEAN CORPUSCULAR HGB CONC 32.5 g/dL (33.0-36.5); MEAN CORPUSCULAR VOLUME 95.2 FL (78-98); MEAN PLATELET VOLUME 8.6 FL (7.4-10.4); MONOCYTES # (AUTO) 0.4 X10'3 (0-0.9); MONOCYTES % (AUTO) 8.8 % (2-12); NEUTROPHILS # (AUTO) 2.8 X10'3 (1.8-7.7); NEUTROPHILS % (AUTO) 57.8 % (42-75); PLATELET COUNT 225 X10'3 (140-440); RED BLOOD COUNT 2.97 X10'6 (4.20-5.60); RED CELL DISTRIBUTION WIDTH 13.2 % (11.5-14.5); WHITE BLOOD COUNT 4.8 X10'3 (4.5-11.0)
[2021-02-24 06:47] LABS: ALANINE AMINOTRANSFERASE 27 U/L (12-78); ALBUMIN 2.7 G/DL (3.4-5.0); ALKALINE PHOSPHATASE 56 IU/L (46-116); ANION GAP 7 (8-16); ASPARTATE AMINO TRANSFERASE 23 U/L (10-37); BILIRUBIN,TOTAL 0.3 MG/DL (0.1-1.0); BLOOD UREA NITROGEN 11 MG/DL (7-18); BUN/CREATININE RATIO 11.5 (6.6-38.0); CALCIUM 8.3 MG/DL (8.5-10.1); CHLORIDE 113 MMOL/L (99-107); CREATINE KINASE 462 U/L (26-192); CREATININE 0.96 MG/DL (0.40-0.90); GLUCOSE 90 MG/DL (70-104); POTASSIUM 4.1 MMOL/L (3.5-5.1); SODIUM 141 MMOL/L (135-145); TOTAL CARBON DIOXIDE 20.9 MMOL/L (24-32); TOTAL PROTEIN 5.3 G/DL (6.4-8.2); eGFR 59 ML/MIN
[2021-02-24] MEDS: CefTRIAXone 2gm/D5W 50ml BAG 50 ML IV SCH (07:40)
[2021-02-24] MEDS: lithium carbonate 150mg capsule PO SCH (07:42)
[2021-02-24] MEDS: heparin, porcine 5000 units/ml vial SQ SCH (07:42)
[2021-02-24] MEDS: propranolol 10mg tablet PO SCH (07:43)
[2021-02-24] MEDS: levoTHYROXINE 100mcg tablet PO SCH (07:43)
[2021-02-24] MEDS: benztropine 1mg tablet PO SCH (07:43)
[2021-02-24] MEDS: K and/or MAG REPLACEMENT MC SCH (07:47)
--- NOTE | 2021-02-24 08:27 | NUR ---
PAGER ID: [phone] MESSAGE: jess bermudez [phone] re: Heather Gillespie 3028B. Pt agitated, requesting to leave. Thank you
--- NOTE | 2021-02-24 09:09 | NUR ---
patient left [facility] at 0908 against medical advice. Belongings sent with patient. IV removed, tip intact, no complications. Pt was wheeled down in wheelchair by [facility] staff to entrance. Pt left facility in stable condition.
--- NOTE | 2021-02-24 09:13 | NUR ---
PAGER ID: [phone] MESSAGE: Katerina bermudez [phone] RE: Heather Gillespie 3028B. Despite nursing best attempts patient left AMA. Thank you
== END 2021-02-24 09:15 | disposition left against medical advice (07) | DRG 682 ==
LOC: ER 16:14 → ED HOLD 21:08 → EDBEDREQTM 02-22 06:37 → PCU 3S 02-22 08:20
PROVIDERS: ADMIT Internal Medicine; ATTEND Family Medicine
DX: N17.9 Acute kidney failure, unspecified (principal); G93.41 Metabolic encephalopathy; N39.0 Urinary tract infection, site not specified; M62.82 Rhabdomyolysis; Z53.29 Procedure and treatment not carried out because of patient's decision for other reasons; F20.9 Schizophrenia, unspecified; F31.9 Bipolar disorder, unspecified; F12.90 Cannabis use, unspecified, uncomplicated; F41.9 Anxiety disorder, unspecified; G89.4 Chronic pain syndrome; E87.6 Hypokalemia; E03.9 Hypothyroidism, unspecified; D64.9 Anemia, unspecified; T67.5XXA Heat exhaustion, unspecified, initial encounter; R27.0 Ataxia, unspecified; R47.81 Slurred speech; I12.9 Hypertensive chronic kidney disease with stage 1 through stage 4 chronic kidney disease, or unspecified chronic kidney disease; N18.30 Chronic kidney disease, stage 3 unspecified; X30.XXXA Exposure to excessive natural heat, initial encounter; Z86.73 Personal history of transient ischemic attack (TIA), and cerebral infarction without residual deficits
CPT/HCPCS: 36415; 70450; 71045; 80053; 80305; 80320; 81001; 82140; 82550; 82948; 83605; 83735; 84443; 84484; 85025; 87040; 87081; 87088; 87635; 93005; 96360; 96361; 99281; 99283; 99285; G0378; J0696; J1630; J1644; J7030

== ENCOUNTER → 2021-02-28 | Emergency (ER) | payer MEDICARE, MEDICAID ==
[~2021-02-28] MED LIST changes: +ACET-1131 PO; +ACET-1133 PO; -DIAZ5TAB22 PO; -MECL-159 PO; +MELO-100 PO; -ONDA4TAB6 PO; +SENN-173 PO; +SENN-263 PO; +TRAZ-251 PO; +TRAZ-256 PO; +TRAZ300T2 PO
== END | disposition left against medical advice (07) ==
LOC: ER 18:44
DX: M25.569 Pain in unspecified knee (principal); Z53.21 Procedure and treatment not carried out due to patient leaving prior to being seen by health care provider

== ENCOUNTER 2021-03-03 00:20 | Emergency (ER) | payer MEDICARE, MEDICAID ==
[~2021-03-03 00:20] MED LIST changes: -ACET-1131 PO; -ACET-1133 PO; -MELO-100 PO; -SENN-173 PO; -SENN-263 PO; -TRAZ-251 PO; -TRAZ-256 PO; -TRAZ300T2 PO
--- NOTE | 2021-03-03 03:27 | NUR ---
Patient is extremely poor historian, does not know what meds she takes or medical history, only keeps repeating that she is schizophrenic and is suicidal and homicidal. Everything taken out of room except for O2, airplane engineer came by to take it out but it is broken, cannot get off wall.
[2021-03-03 03:44] LABS: BASOPHILS % (AUTO) 0.4 % (0-1); EOSINOPHILS # (AUTO) 0.1 X10'3 (0-0.9); EOSINOPHILS % (AUTO) 2.5 % (0-6); HEMATOCRIT 31.5 % (35.0-45.0); HEMOGLOBIN 10.2 g/dl (12.0-16.0); LYMPHOCYTES # (AUTO) 1.3 X10'3 (1.1-4.8); LYMPHOCYTES % (AUTO) 23.9 % (21-51); MEAN CORPUSCULAR HEMOGLOBIN 30.8 PG (27.0-31.0); MEAN CORPUSCULAR HGB CONC 32.4 g/dL (33.0-36.5); MEAN CORPUSCULAR VOLUME 95.2 FL (78-98); MEAN PLATELET VOLUME 7.4 FL (7.4-10.4); MONOCYTES # (AUTO) 0.5 X10'3 (0-0.9); MONOCYTES % (AUTO) 9.9 % (2-12); NEUTROPHILS # (AUTO) 3.4 X10'3 (1.8-7.7); NEUTROPHILS % (AUTO) 63.3 % (42-75); PLATELET COUNT 290 X10'3 (140-440); RED BLOOD COUNT 3.31 X10'6 (4.20-5.60); RED CELL DISTRIBUTION WIDTH 13.3 % (11.5-14.5); WHITE BLOOD COUNT 5.4 X10'3 (4.5-11.0)
--- NOTE | 2021-03-03 03:53 | NUR ---
LIZA increased to level II r/t 9899.
[2021-03-03 03:55] LABS: ALANINE AMINOTRANSFERASE 25 U/L (12-78); ALBUMIN 3.3 G/DL (3.4-5.0); ALBUMIN/GLOBULIN RATIO 1.1 (1.1-1.5); ALKALINE PHOSPHATASE 65 IU/L (46-116); ANION GAP 6 (8-16); ASPARTATE AMINO TRANSFERASE 17 U/L (10-37); BILIRUBIN,TOTAL 0.2 MG/DL (0.1-1.0); BLOOD UREA NITROGEN 22 MG/DL (7-18); BUN/CREATININE RATIO 15.2 (6.6-38.0); CALCIUM 9.1 MG/DL (8.5-10.1); CHLORIDE 104 MMOL/L (99-107); CREATININE 1.45 MG/DL (0.40-0.90); ETHANOL < 0.010 GM/DL (0.0-0.010); GLUCOSE 109 MG/DL (70-104); POTASSIUM 3.9 MMOL/L (3.5-5.1); SODIUM 139 MMOL/L (135-145); TOTAL CARBON DIOXIDE 29.2 MMOL/L (24-32); TOTAL PROTEIN 6.4 G/DL (6.4-8.2); eGFR 37 ML/MIN
[2021-03-03 10:20] LABS: CLARITY,URINE CLEAR (Clear); COLOR,URINE YELLOW (Yellow); PH,URINE 7.5 (4.8-8.0); UA COLLECTION TYPE CLN CATCH MIDSTREAM
[2021-03-03 10:21] LABS: GLUCOSE, URINE NEGATIVE (Neg); KETONES,URINE NEGATIVE (Neg); LEUKOCYTE ESTERASE ,URINE NEGATIVE (Neg); NITRITES, URINE NEGATIVE (Neg); OCCULT BLOOD,URINE NEGATIVE (Neg); PROTEIN,URINE NEGATIVE (Neg); UROBILINOGEN,URINE 0.2 E.U/dL (0.2-1.0)
[2021-03-03 10:23] LABS: URINE AMPHETAMINE SCREEN NEGATIVE (Neg); URINE BARBITUATE SCREEN NEGATIVE (Neg); URINE BENZODIAZEPINES SCREEN POSITIVE (Neg); URINE CANNABINOID SCREEN NEGATIVE (Neg); URINE COCAINE SCREEN NEGATIVE (Neg); URINE METHADONE SCREEN NEGATIVE (Neg); URINE OPIATE SCREEN NEGATIVE (Neg); URINE PHENCYCLIDINE SCREEN NEGATIVE (Neg)
[2021-03-03] MEDS ORDERED: TRAZ-256 PO (11:02)
[2021-03-03] MEDS ORDERED: SENN-263 PO (11:02)
[2021-03-03] MEDS ORDERED: ACET-1133 PO (11:02)
[2021-03-03] MEDS ORDERED: PALI234D IM (11:02)
[2021-03-03] MEDS ORDERED: TRAZ-251 PO (11:02)
[2021-03-03] MEDS ORDERED: MELO-100 PO (11:02)
[2021-03-03] MEDS ORDERED: ACET-1131 PO (11:02)
[2021-03-03] MEDS ORDERED: SENN-173 PO (11:02)
[2021-03-03] MEDS ORDERED: TRAZ300T2 PO (11:02)
--- NOTE | 2021-03-03 11:54 | NUR ---
packet sent to [facility]
--- NOTE | 2021-03-03 15:01 | NUR ---
Pt in bed resting quietly. No s/s of distress. Denies SI/HI.
--- NOTE | 2021-03-03 17:32 | NUR ---
Migratory Worker [facility] [phone] Addendum: 03/03/21 at 1733 by RAHUL Chinyere Migratory Worker
[2021-03-03] MEDS ORDERED: non-formulary drug (Acetaminophen 2 TAB) PO PRN (17:35)
[2021-03-03] MEDS ORDERED: paliperidone palmitate inj 234 MG/1.5 ML SYRINGE IM SCH (18:26)
--- NOTE | 2021-03-03 18:43 | NUR ---
1830 Assumed care, patient making her need known
[2021-03-03] MEDS: temazepam 15mg capsule PO SCH (20:29)
[2021-03-03] MEDS: traZODone 150mg tablet PO SCH (20:29)
[2021-03-03] MEDS: propranolol 40mg tablet PO SCH (20:30)
--- NOTE | 2021-03-03 20:56 | NUR ---
Moved pateint to a differnt bed her bed would noty lay flat. Patient continues to request "Pampering". "Will you cover me, will you move the bedside table closer...." Did medication pass patient took medications after med education by this specifications writer. Sean Varela ordered, patient aware if arrives when she is a sleep we would do her injection in the morning. Patient is denies SI while in a safe eneviorment.
--- NOTE | 2021-03-03 23:03 | NUR ---
Patient resting on her back talking in her sleep "I need milk to get up and walk", PCT checking on patient each time she talks, it appears as if she is talking in her sleep
--- NOTE | 2021-03-04 02:01 | NUR ---
Patient sleeping on her back, she is now under covers and is no longer talking in her sleep
--- NOTE | 2021-03-04 02:50 | NUR ---
Assisted patient to the restroom, although patient asked for help Heather was able to ambulate on her own. Patient did ask this typewriter repairer to cover her up. "Please do a good job"
--- NOTE | 2021-03-04 05:05 | NUR ---
Patient resting in bed Vital signs done
[2021-03-04] MEDS ORDERED: paliperidone palmitate inj 234 MG/1.5 ML SYRINGE IM SCH (08:00)
[2021-03-04] MEDS: MELOXICAM 15MG TABLET PO SCH (08:00)
[2021-03-04] MEDS: lithium carbonate 150mg capsule PO SCH (08:41)
[2021-03-04] MEDS: sennosides 8.6mg tablet PO SCH (08:41)
[2021-03-04] MEDS: levoTHYROXINE 100mcg tablet PO SCH (08:42)
[2021-03-04] MEDS: propranolol 40mg tablet PO SCH ×2 (08:42→20:10)
[2021-03-04] MEDS ORDERED: hydrOXYzine 25 MG tablet PO ONE (15:55)
--- NOTE | 2021-03-04 17:07 | NUR ---
Patient if fussy and asking for staff to adjust her blankets. Patient then comes to the nurses station and states she loves the medication we gave her. Then patient goes back to her bed and starts crying saying she needs to feel better. Continue to monitor.
--- NOTE | 2021-03-04 19:42 | NUR ---
One to one with the patient who adamently states she does not want to return to her apartment. She stated that she felt overwhelmed with having to take care of herself and that if she is forced to return to her apartment she will commit suicide. She is unable to identify why she is now feeling that way. She denies problems with her intensive care unit nurse. She stated that she feels she needs to go to "[place] or someplace like that" She did state she felt good here and that her mood was good. Psychotic symptopms were denied.
[2021-03-04] MEDS: traZODone 150mg tablet PO SCH (20:10)
[2021-03-04] MEDS: temazepam 15mg capsule PO SCH (20:10)
--- NOTE | 2021-03-04 21:27 | NUR ---
The patient quietly resting on her bed. She asked for a sandwich and one was given to her.
--- NOTE | 2021-03-04 23:27 | NUR ---
The patient is calling out from her bed that her blankets aren't straight and she was reminded that she could not yell out from her bed late at night
--- NOTE | 2021-03-05 01:02 | NUR ---
The patient appears to be sleeping
--- NOTE | 2021-03-05 03:48 | NUR ---
The patient appears to be sleeping well
--- NOTE | 2021-03-05 04:06 | NUR ---
Patient began yelling out that she needed staff to assist her to go to the bathroom but she was redirected and encouraged to get up on her own to go the bathroom which she did without incident. Once she got back to bed she yelled that she needed to have staff cover her up and she was redirected from this behavior and she then got up and arranged her own blankets and got back in bed without difficulty
--- NOTE | 2021-03-05 04:58 | NUR ---
The patient appears to be sleeping
[2021-03-05] MEDS: MELOXICAM 15MG TABLET PO SCH (08:00)
--- NOTE | 2021-03-05 08:00 | NUR ---
Patient resting in bed, no distress noted at this time
[2021-03-05] MEDS: levoTHYROXINE 100mcg tablet PO SCH (08:59)
[2021-03-05] MEDS: sennosides 8.6mg tablet PO SCH (09:00)
--- NOTE | 2021-03-05 09:00 | NUR ---
Patient sitting in bed, meds given and well tolerated by patient
--- NOTE | 2021-03-05 10:00 | NUR ---
Patient sitting in bed, meds given and well tolerated by patient
[2021-03-05] MEDS: propranolol 40mg tablet PO SCH ×2 (10:15→20:15)
[2021-03-05] MEDS: lithium carbonate 150mg capsule PO SCH (10:15)
--- NOTE | 2021-03-05 11:59 | NUR ---
Patient ambulate to the bathroom, no distress noted
--- NOTE | 2021-03-05 13:42 | NUR ---
Patient sleeping comfortably on bed, no distress noted at this time.
--- NOTE | 2021-03-05 14:29 | NUR ---
Patient resting on bed, no distress noted
--- NOTE | 2021-03-05 16:00 | NUR ---
Patient resting in bed, awake.
--- NOTE | 2021-03-05 19:24 | NUR ---
The patient has been intrusive up at the nursing station but accepts redirection. She is reporting that she is ready to go home and added "[facility] will give me a new girl" She stated that she has not had an SS worker for several weeks. She denies that she is having any thoughts to harm herself or others and added, "and I'm not having any crazy mood swings"
[2021-03-05] MEDS: temazepam 15mg capsule PO SCH (20:15)
[2021-03-05] MEDS: traZODone 150mg tablet PO SCH (20:15)
--- NOTE | 2021-03-05 21:39 | NUR ---
The patient up to use the bathroom
--- NOTE | 2021-03-05 23:18 | NUR ---
The patient appears to be sleeping
--- NOTE | 2021-03-06 01:35 | NUR ---
The patient appears to be sleeping
--- NOTE | 2021-03-06 03:40 | NUR ---
The patient up to use the bathroom and is now back in bed
--- NOTE | 2021-03-06 04:55 | NUR ---
The patient appears to be sleeping
[2021-03-06 05:53] VITALS: BP 92/62
[2021-03-06] MEDS: MELOXICAM 15MG TABLET PO SCH (08:00)
--- NOTE | 2021-03-06 08:00 | NUR ---
PT WAS UP TO USE THE RESTROOM AFTER BREAKFAST, CALM AND COOPERATIVE
[2021-03-06] MEDS: sennosides 8.6mg tablet PO SCH (08:12)
[2021-03-06] MEDS: levoTHYROXINE 100mcg tablet PO SCH (08:13)
[2021-03-06] MEDS: propranolol 40mg tablet PO SCH (08:13)
[2021-03-06] MEDS: lithium carbonate 150mg capsule PO SCH (08:14)
--- NOTE | 2021-03-06 09:00 | NUR ---
PT IS RESTING QUIETLY ON HER BED
== END 2021-03-06 13:38 | disposition home or self-care (01) ==
LOC: ER 00:21
DX: R45.851 Suicidal ideations (principal); F41.9 Anxiety disorder, unspecified; F32.9 Major depressive disorder, single episode, unspecified; I10 Essential (primary) hypertension; G89.29 Other chronic pain; F20.9 Schizophrenia, unspecified; F12.90 Cannabis use, unspecified, uncomplicated; F15.90 Other stimulant use, unspecified, uncomplicated; Z86.73 Personal history of transient ischemic attack (TIA), and cerebral infarction without residual deficits; Z86.69 Personal history of other diseases of the nervous system and sense organs; Z98.890 Other specified postprocedural states; Z72.89 Other problems related to lifestyle; Z79.899 Other long term (current) drug therapy
CPT/HCPCS: 36415; 80053; 80305; 80320; 81003; 85025; 96372; 99285; Q0177

== ENCOUNTER 2021-03-22 12:02 | Emergency (ER) | payer MEDICARE, MEDICAID ==
[~2021-03-22] VITALS: Ht 162.6 cm; Wt 81.4 kg
[~2021-03-22 12:02] MED LIST changes: +ACET-1133 PO; -BENZ1TAB7 PO; -DOCU-148 PO; -LORA-269 PO; +SENN-263 PO
[2021-03-22 12:52] VITALS: BP 90/53
--- NOTE | 2021-03-22 13:05 | NUR ---
PAGED SS FOR CONSULT
== END 2021-03-22 14:10 | disposition home or self-care (01) ==
LOC: ER 12:03
DX: Z02.89 Encounter for other administrative examinations (principal); R62.7 Adult failure to thrive; I10 Essential (primary) hypertension; G89.29 Other chronic pain; F41.9 Anxiety disorder, unspecified; F32.9 Major depressive disorder, single episode, unspecified; F12.90 Cannabis use, unspecified, uncomplicated; F20.9 Schizophrenia, unspecified; F15.90 Other stimulant use, unspecified, uncomplicated; F11.90 Opioid use, unspecified, uncomplicated; Z86.73 Personal history of transient ischemic attack (TIA), and cerebral infarction without residual deficits; Z86.69 Personal history of other diseases of the nervous system and sense organs; Z98.890 Other specified postprocedural states; Z72.89 Other problems related to lifestyle; Z79.899 Other long term (current) drug therapy
CPT/HCPCS: 99283

== ENCOUNTER 2021-03-23 16:50 | Emergency (ER) | payer MEDICARE, MEDICAID ==
[~2021-03-23] VITALS: Ht 162.6 cm; Wt 81.4 kg
[2021-03-23 18:00] LABS: BASOPHILS % (AUTO) 0.3 % (0-1); EOSINOPHILS # (AUTO) 0.1 X10'3 (0-0.9); HEMOGLOBIN 10.7 g/dl (12.0-16.0); MEAN CORPUSCULAR HGB CONC 33.4 g/dL (33.0-36.5); MONOCYTES # (AUTO) 0.7 X10'3 (0-0.9); RED BLOOD COUNT 3.47 X10'6 (4.20-5.60)
[2021-03-23 18:01] LABS: EOSINOPHILS % (AUTO) 0.7 % (0-6); HEMATOCRIT 32.1 % (35.0-45.0); LYMPHOCYTES % (AUTO) 10.9 % (21-51); MEAN CORPUSCULAR VOLUME 92.7 FL (78-98); MEAN PLATELET VOLUME 7.5 FL (7.4-10.4); MONOCYTES % (AUTO) 7.3 % (2-12); NEUTROPHILS # (AUTO) 7.5 X10'3 (1.8-7.7); NEUTROPHILS % (AUTO) 80.8 % (42-75); PLATELET COUNT 301 X10'3 (140-440); RED CELL DISTRIBUTION WIDTH 13.2 % (11.5-14.5); WHITE BLOOD COUNT 9.3 X10'3 (4.5-11.0)
[2021-03-23 18:09] LABS: ALANINE AMINOTRANSFERASE 79 U/L (12-78); ALBUMIN 3.7 G/DL (3.4-5.0); ALBUMIN/GLOBULIN RATIO 1.1 (1.1-1.5); ALKALINE PHOSPHATASE 73 IU/L (46-116); ANION GAP 10 (8-16); ASPARTATE AMINO TRANSFERASE 84 U/L (10-37); BILIRUBIN,TOTAL 0.4 MG/DL (0.1-1.0); BLOOD UREA NITROGEN 15 MG/DL (7-18); BUN/CREATININE RATIO 12.7 (6.6-38.0); CALCIUM 9.8 MG/DL (8.5-10.1); CHLORIDE 106 MMOL/L (99-107); CREATININE 1.18 MG/DL (0.40-0.90); GLUCOSE 112 MG/DL (70-104); POTASSIUM 4.1 MMOL/L (3.5-5.1); SODIUM 141 MMOL/L (135-145); TOTAL CARBON DIOXIDE 25.4 MMOL/L (24-32); eGFR 47 ML/MIN
[2021-03-23 18:19] LABS: ETHANOL < 0.010 GM/DL (0.0-0.010)
--- NOTE | 2021-03-23 19:29 | NUR ---
Pt arrived in EDOF. Pt states that she had a "really bad day! I almost got hit by a car because I was trying to commit suicide. Im really cold can you give me a blanket. Can I have a sandwich?"
[2021-03-23 19:43] LABS: URINE HCG NEGATIVE (NEG)
[2021-03-23 19:54] LABS: URINE AMPHETAMINE SCREEN NEGATIVE (Neg); URINE BARBITUATE SCREEN NEGATIVE (Neg); URINE BENZODIAZEPINES SCREEN POSITIVE (Neg); URINE CANNABINOID SCREEN NEGATIVE (Neg); URINE COCAINE SCREEN NEGATIVE (Neg); URINE METHADONE SCREEN NEGATIVE (Neg); URINE OPIATE SCREEN NEGATIVE (Neg); URINE PHENCYCLIDINE SCREEN NEGATIVE (Neg)
[2021-03-23 20:05] LABS: UA COLLECTION TYPE VOIDED
[2021-03-23 20:07] LABS: CLARITY,URINE SLIGHTLY CLOUDY (Clear); COLOR,URINE YELLOW (Yellow)
[2021-03-23 20:08] LABS: GLUCOSE, URINE NEGATIVE (Neg); KETONES,URINE TRACE mg/dl (Neg); LEUKOCYTE ESTERASE ,URINE NEGATIVE (Neg); NITRITES, URINE NEGATIVE (Neg); OCCULT BLOOD,URINE NEGATIVE (Neg); PROTEIN,URINE NEGATIVE (Neg); UROBILINOGEN,URINE 0.2 E.U/dL (0.2-1.0)
[2021-03-23 20:09] LABS: MUCUS STRANDS FEW /LPF (Neg); SQUAMOUS EPITHELIAL CELL,UR MANY /LPF (FEW)
[2021-03-23 20:10] LABS: BACTERIA,URINE FEW /HPF (Neg); WBC,URINE 0-4 /HPF (0-4)
[2021-03-23] MEDS ORDERED: non-formulary drug (Acetaminophen 2 TAB) PO PRN (20:50)
--- NOTE | 2021-03-23 20:55 | NUR ---
pt states "Im mentally and physically disabled, I need a drink of water." Pt is making multiple requests to get covered with blankets, help her sit up in bed, help her get untucked, has to pee, needs a drink of water. Pt is assisted with blankets, assisted to sit up in bed, assisted with pillow, spills water in her bed and has bed changed. Once everything is done she starts over again.
[2021-03-23] MEDS: traZODone 150mg tablet PO SCH (21:05)
[2021-03-23] MEDS: temazepam 15mg capsule PO SCH (21:05)
--- NOTE | 2021-03-23 22:03 | NUR ---
pt is laying in bed sleeping rr even and unlabored
--- NOTE | 2021-03-23 22:52 | NUR ---
pt awake up to use the toilet
--- NOTE | 2021-03-24 01:15 | NUR ---
pt awake yelling that she needs to get up and can't get up without help. Pt lays in bed and makes no attempt to get up but relies on staff to help her up. Pt is encouraged to get up on her own and she finally gets up, walks to her water pitcher gets a drink and gets back in bed and immediatetly starts calling for help w/her blankets.
--- NOTE | 2021-03-24 03:01 | NUR ---
pt has been up c/o not being able to reposition herself in bed despite repositioning herself often. Pt is assisted with adjusting blankets and assisted with getting back in bed and went to sleep. She is now asleep rr even and unlabored.
--- NOTE | 2021-03-24 05:04 | NUR ---
pt is sleeping rr 16
--- NOTE | 2021-03-24 07:00 | NUR ---
Patient resting in bed on back with eyes closed. RR 14
[2021-03-24] MEDS: MELOXICAM 15MG TABLET PO SCH (08:00)
--- NOTE | 2021-03-24 09:00 | NUR ---
Sitting on bedside eating breakfast.
[2021-03-24] MEDS: levoTHYROXINE 100mcg tablet PO SCH (09:11)
[2021-03-24] MEDS: lithium carbonate 150mg capsule PO SCH (09:11)
[2021-03-24] MEDS: sennosides 8.6mg tablet PO SCH (09:12)
[2021-03-24] MEDS: propranolol 10mg tablet PO SCH ×2 (09:12→19:16)
--- NOTE | 2021-03-24 11:00 | NUR ---
Pt resting in bed eyes closed. RR 15
--- NOTE | 2021-03-24 13:00 | NUR ---
Pt remains extremely needy, not wanting to perform any tasks on her own. Pt needing much encouragement.
--- NOTE | 2021-03-24 15:00 | NUR ---
Pt remains very needy with multiple requests. Acting like she cannot do things on her own.
--- NOTE | 2021-03-24 17:00 | NUR ---
Pt was able to not have any requests for about an hour, but started up again around 1615.
--- NOTE | 2021-03-24 20:00 | NUR ---
Pt is demanding, repeatly asking for staff to do things she is capable of doing. pt requested to have her blankets pulled up and to have her feet moved.
[2021-03-24] MEDS: temazepam 15mg capsule PO SCH (21:42)
[2021-03-24] MEDS: traZODone 150mg tablet PO SCH (21:42)
--- NOTE | 2021-03-24 22:05 | NUR ---
pt is sleeping, no s/s of distress noted.
--- NOTE | 2021-03-25 00:25 | NUR ---
pt continues to sleep
--- NOTE | 2021-03-25 02:37 | NUR ---
pt is refusing to put her pants on. pt demands staff do everything for her despite her being able to do it herself. pt stated, "fine i'll just piss my bed again."
--- NOTE | 2021-03-25 04:04 | NUR ---
pt reluctantly put her briefs and pants on despite claiming she was unable to. pt is now yelling out demands or asking questions from her bed.
--- NOTE | 2021-03-25 04:23 | NUR ---
pt continues to yell out demands for various things, refuses to do anything for herself.
--- NOTE | 2021-03-25 07:00 | NUR ---
Pt in bed awake demanding staff to do things she is capable of doing. Pt requested to have her legs moved over in bed. When encouraged to move her own legs pt did so without difficulty.
--- NOTE | 2021-03-25 07:55 | NUR ---
Pt BP low. Per MD Stephenson ok to hold Inderal this am. Pt afebrile. Alert. Ambulatory
[2021-03-25] MEDS: propranolol 10mg tablet PO SCH ×3 (08:00→20:17)
[2021-03-25] MEDS: MELOXICAM 15MG TABLET PO SCH (08:00)
[2021-03-25] MEDS: levoTHYROXINE 100mcg tablet PO SCH (08:15)
[2021-03-25] MEDS: lithium carbonate 150mg capsule PO SCH (08:15)
[2021-03-25] MEDS: sennosides 8.6mg tablet PO SCH (08:16)
--- NOTE | 2021-03-25 09:00 | NUR ---
Pt in bed awake demanding that staff pull up her covers. When encouraged to it herself pt performs without difficulty.
--- NOTE | 2021-03-25 11:00 | NUR ---
Pt resting in bed with eyes closed RR 16.
--- NOTE | 2021-03-25 13:14 | NUR ---
Pt paces the halls, sits in bedside chair and makes phone calls. Ate lunch
--- NOTE | 2021-03-25 13:29 | NUR ---
pt ambulated independently to nursing station without assistance. pt had steady gait. no distress noted. est 50 feet
--- NOTE | 2021-03-25 15:00 | NUR ---
Pt ambulates halls and talks to nurses
--- NOTE | 2021-03-25 17:12 | NUR ---
pt ambulated up to [facility] station with steady gait.
[2021-03-25] MEDS: traZODone 150mg tablet PO SCH (19:56)
[2021-03-25] MEDS: temazepam 15mg capsule PO SCH (20:15)
--- NOTE | 2021-03-25 21:06 | NUR ---
Pt is currently sleeping in bed. NAD. Pt displays even and non labored breathing. Will continue to monitor.
--- NOTE | 2021-03-25 23:17 | NUR ---
Pt is sleeping in bed. NAD. Pt displays even and non labored breathing. Will continue to monitor.
--- NOTE | 2021-03-26 02:56 | NUR ---
Pt is sleeping. NAD.
--- NOTE | 2021-03-26 04:00 | NUR ---
Pt is sleeping. NAD.
--- NOTE | 2021-03-26 05:18 | NUR ---
Pt urinates on herself on purpose. Demanding nurses to clean her up. This RN refused to help pt, due to the pt's is very capable of doing her own ADL independently.
--- NOTE | 2021-03-26 05:59 | NUR ---
Pt refused to place pants back on.
--- NOTE | 2021-03-26 07:16 | NUR ---
The patient has been calling out very frequently to request task to be done by the nursing staff that she can do for herself. She is friendly however. She stated that she doesn't feel she is sleeping well at night and is requesting additional sleep medications. She stated, "I haven't slept for 9 days" She stated I'm not doing very good because I'm going to [facility] for 3-4 months" She then added that is what she wanted was to be hosptalized for 3-4 months. She denies auditory or visual hallucinations. She denies thoughts to harm herself or others.
[2021-03-26] MEDS: MELOXICAM 15MG TABLET PO SCH (08:00)
[2021-03-26] MEDS: levoTHYROXINE 100mcg tablet PO SCH (08:05)
[2021-03-26] MEDS: sennosides 8.6mg tablet PO SCH (08:05)
[2021-03-26] MEDS: propranolol 10mg tablet PO SCH (08:05)
[2021-03-26] MEDS: lithium carbonate 150mg capsule PO SCH (08:06)
--- NOTE | 2021-03-26 08:15 | NUR ---
The patient is asleep on her bed
--- NOTE | 2021-03-26 09:34 | NUR ---
The patient is sitting on the floor by her bed. She did not fall but is having behaviors. She was redirected to get back up on her bed.
--- NOTE | 2021-03-26 10:36 | NUR ---
The patient has made approximately 35 requests of staff in the past hour asking them to do things she can do for herself. She has need repeated redirection from this behavior.
--- NOTE | 2021-03-26 11:29 | NUR ---
The patient is up to use the bathroom. She is asking the [facility] embroidery worker to be discharged home. She denies suicidal thoughts.
[2021-03-26 11:37] VITALS: BP 103/76
[2021-04-01] MEDS ORDERED: paliperidone palmitate inj 234 MG/1.5 ML SYRINGE IM SCH (08:00)
== END 2021-03-26 11:45 | disposition home or self-care (01) ==
LOC: ER 16:51
DX: R45.851 Suicidal ideations (principal); Z20.822 Contact with and (suspected) exposure to COVID-19; I10 Essential (primary) hypertension; G89.29 Other chronic pain; F41.9 Anxiety disorder, unspecified; F32.9 Major depressive disorder, single episode, unspecified; F20.9 Schizophrenia, unspecified; F12.90 Cannabis use, unspecified, uncomplicated; F15.90 Other stimulant use, unspecified, uncomplicated; F11.90 Opioid use, unspecified, uncomplicated; Z86.73 Personal history of transient ischemic attack (TIA), and cerebral infarction without residual deficits; Z86.69 Personal history of other diseases of the nervous system and sense organs; Z98.890 Other specified postprocedural states; Z72.89 Other problems related to lifestyle; Z79.899 Other long term (current) drug therapy
CPT/HCPCS: 36415; 80053; 80305; 80320; 81001; 81025; 84443; 85025; 87635; 99285; C9803

== ENCOUNTER 2021-03-31 14:24 | Emergency (ER) | payer MEDICARE, MEDICAID ==
[~2021-03-31] VITALS: Ht 162.6 cm; Wt 81.0 kg
[2021-03-31 14:27] VITALS: BP 118/76
--- NOTE | 2021-03-31 16:54 | NUR ---
PATIENT ELOPED BEFORE BEING SEEN BY RN OR PROVIDER.
[2021-04-01] MEDS ORDERED: DICL100G30 TOP (13:11)
[2021-04-01] MEDS ORDERED: DOCU100C40 PO (13:11)
== END 2021-03-31 16:55 | disposition left against medical advice (07) ==
LOC: ER 14:24
DX: F20.9 Schizophrenia, unspecified (principal); Z53.21 Procedure and treatment not carried out due to patient leaving prior to being seen by health care provider

== ENCOUNTER 2021-04-01 11:46 | Emergency (ER) | payer MEDICARE, MEDICAID ==
[~2021-04-01] VITALS: Ht 162.6 cm; Wt 79.0 kg
[2021-04-01 13:02] LABS: BASOPHILS % (AUTO) 0.3 % (0-1); EOSINOPHILS % (AUTO) 0.5 % (0-6); HEMOGLOBIN 11.2 g/dl (12.0-16.0); LYMPHOCYTES # (AUTO) 0.8 X10'3 (1.1-4.8); LYMPHOCYTES % (AUTO) 10.7 % (21-51); MEAN CORPUSCULAR HEMOGLOBIN 30.7 PG (27.0-31.0); MEAN CORPUSCULAR HGB CONC 32.8 g/dL (33.0-36.5); MEAN CORPUSCULAR VOLUME 93.6 FL (78-98); MEAN PLATELET VOLUME 7.7 FL (7.4-10.4); MONOCYTES # (AUTO) 0.4 X10'3 (0-0.9); MONOCYTES % (AUTO) 5.6 % (2-12); NEUTROPHILS # (AUTO) 6.5 X10'3 (1.8-7.7); NEUTROPHILS % (AUTO) 82.9 % (42-75); PLATELET COUNT 286 X10'3 (140-440); RED BLOOD COUNT 3.63 X10'6 (4.20-5.60); RED CELL DISTRIBUTION WIDTH 13.2 % (11.5-14.5); WHITE BLOOD COUNT 7.8 X10'3 (4.5-11.0)
[2021-04-01 13:05] VITALS: BP 119/75
[2021-04-01] MEDS ORDERED: DICL100G30 TOP (13:11)
[2021-04-01] MEDS ORDERED: DOCU100C40 PO (13:11)
[2021-04-01 13:18] LABS: ALANINE AMINOTRANSFERASE 29 U/L (12-78); ALBUMIN 3.5 G/DL (3.4-5.0); ALBUMIN/GLOBULIN RATIO 1.1 (1.1-1.5); ALKALINE PHOSPHATASE 64 IU/L (46-116); ANION GAP 1 (8-16); ASPARTATE AMINO TRANSFERASE 24 U/L (10-37); BILIRUBIN,TOTAL 0.4 MG/DL (0.1-1.0); BLOOD UREA NITROGEN 17 MG/DL (7-18); BUN/CREATININE RATIO 12.7 (6.6-38.0); CALCIUM 9.8 MG/DL (8.5-10.1); CHLORIDE 106 MMOL/L (99-107); CREATININE 1.34 MG/DL (0.40-0.90); GLUCOSE 103 MG/DL (70-104); POTASSIUM 4.4 MMOL/L (3.5-5.1); SODIUM 135 MMOL/L (135-145); TOTAL CARBON DIOXIDE 27.7 MMOL/L (24-32); TOTAL PROTEIN 6.6 G/DL (6.4-8.2); eGFR 40 ML/MIN
== END 2021-04-01 14:30 | disposition home or self-care (01) ==
LOC: ER 11:46
DX: F25.9 Schizoaffective disorder, unspecified (principal); G40.909 Epilepsy, unspecified, not intractable, without status epilepticus; I10 Essential (primary) hypertension; G89.29 Other chronic pain; F41.9 Anxiety disorder, unspecified; F32.9 Major depressive disorder, single episode, unspecified; F12.90 Cannabis use, unspecified, uncomplicated; F15.90 Other stimulant use, unspecified, uncomplicated
CPT/HCPCS: 36415; 71045; 80053; 83880; 84484; 85025; 93005; 99285

== ENCOUNTER 2021-04-01 15:23 | Inpatient (IN) | payer MEDICARE, MEDICAID ==
[~2021-04-01] VITALS: Ht 162.6 cm; Wt 71.0 kg
[~2021-04-01 15:23] MED LIST changes: +DICL100G30 TOP; +DOCU100C40 PO
[2021-04-01 16:25] LABS: BASOPHILS % (AUTO) 0.3 % (0-1); EOSINOPHILS % (AUTO) 0.5 % (0-6); HEMOGLOBIN 10.6 g/dl (12.0-16.0); LYMPHOCYTES # (AUTO) 1.1 X10'3 (1.1-4.8); LYMPHOCYTES % (AUTO) 15.6 % (21-51); MEAN CORPUSCULAR HEMOGLOBIN 30.8 PG (27.0-31.0); MEAN CORPUSCULAR HGB CONC 33.1 g/dL (33.0-36.5); MEAN CORPUSCULAR VOLUME 93.1 FL (78-98); MEAN PLATELET VOLUME 7.1 FL (7.4-10.4); MONOCYTES # (AUTO) 0.5 X10'3 (0-0.9); MONOCYTES % (AUTO) 7.7 % (2-12); NEUTROPHILS # (AUTO) 5.4 X10'3 (1.8-7.7); NEUTROPHILS % (AUTO) 75.9 % (42-75); PLATELET COUNT 294 X10'3 (140-440); RED BLOOD COUNT 3.44 X10'6 (4.20-5.60); RED CELL DISTRIBUTION WIDTH 13.5 % (11.5-14.5); WHITE BLOOD COUNT 7.1 X10'3 (4.5-11.0)
[2021-04-01 16:32] LABS: URINE HCG NEGATIVE (NEG)
[2021-04-01 16:33] LABS: CLARITY,URINE SLIGHTLY CLOUDY (Clear); COLOR,URINE YELLOW (Yellow); GLUCOSE, URINE NEGATIVE (Neg); KETONES,URINE TRACE mg/dl (Neg); LEUKOCYTE ESTERASE ,URINE NEGATIVE (Neg); NITRITES, URINE NEGATIVE (Neg); OCCULT BLOOD,URINE NEGATIVE (Neg); PH,URINE 6.5 (4.8-8.0); PROTEIN,URINE NEGATIVE (Neg); UA COLLECTION TYPE NON-SPECIFIED; UROBILINOGEN,URINE 0.2 E.U/dL (0.2-1.0)
[2021-04-01] MEDS ORDERED: acetaminophen 325mg tablet PO ONE (16:35)
[2021-04-01] MEDS ORDERED: haloperidol lactate 5mg/ml inj IM ONE (16:35)
[2021-04-01] MEDS ORDERED: diphenhydrAMINE 50 mg/ml inj IM ONE (16:35)
[2021-04-01 16:42] LABS: ALANINE AMINOTRANSFERASE 27 U/L (12-78); ALBUMIN 3.3 G/DL (3.4-5.0); ALBUMIN/GLOBULIN RATIO 1.1 (1.1-1.5); ALKALINE PHOSPHATASE 65 IU/L (46-116); ANION GAP 4 (8-16); ASPARTATE AMINO TRANSFERASE 26 U/L (10-37); BILIRUBIN,TOTAL 0.6 MG/DL (0.1-1.0); BLOOD UREA NITROGEN 18 MG/DL (7-18); BUN/CREATININE RATIO 14.8 (6.6-38.0); CALCIUM 9.3 MG/DL (8.5-10.1); CHLORIDE 106 MMOL/L (99-107); CREATININE 1.22 MG/DL (0.40-0.90); GLUCOSE 100 MG/DL (70-104); SODIUM 137 MMOL/L (135-145); TOTAL CARBON DIOXIDE 26.7 MMOL/L (24-32); TOTAL PROTEIN 6.3 G/DL (6.4-8.2); eGFR 45 ML/MIN
[2021-04-01 16:43] LABS: ETHANOL < 0.010 GM/DL (0.0-0.010); POTASSIUM 4.2 MMOL/L (3.5-5.1)
[2021-04-01 16:45] LABS: URINE AMPHETAMINE SCREEN NEGATIVE (Neg); URINE BARBITUATE SCREEN NEGATIVE (Neg); URINE BENZODIAZEPINES SCREEN POSITIVE (Neg); URINE CANNABINOID SCREEN NEGATIVE (Neg); URINE COCAINE SCREEN NEGATIVE (Neg); URINE METHADONE SCREEN NEGATIVE (Neg); URINE OPIATE SCREEN NEGATIVE (Neg); URINE PHENCYCLIDINE SCREEN NEGATIVE (Neg)
[2021-04-01 16:48] LABS: BACTERIA,URINE FEW /HPF (Neg); MUCUS STRANDS FEW /LPF (Neg); RBC,URINE NONE SEEN /HPF (0-2); SQUAMOUS EPITHELIAL CELL,UR MANY /LPF (FEW); WBC,URINE 0-4 /HPF (0-4)
[2021-04-01 16:49] LABS: AMORPHOUS URATES 1+
--- NOTE | 2021-04-01 16:56 | NUR ---
Recieved pt. Pt changed into green scrubs, pt assisted to BR for urine specimen, pt noted with steady gait. Pt given additional warm linen at her request as well as a snack per request. Pt CO URBINA. Pt making frequent request Q 2-5 minutes. Pt started yelling out and verbal re-assurance given. Pt noted with medcation patch on lower back
--- NOTE | 2021-04-01 19:00 | NUR ---
Pt is lying in bed, stating that she can not get up. Pt is very capable of getting up out of bed. Pt states " I'm going to pee on myself, if you do not help me." Pt is very uncooperative at this time.
--- NOTE | 2021-04-01 21:00 | NUR ---
Pt is asking for help to get out of the bed. Pt is very capable of getting herself out of bed independently.
--- NOTE | 2021-04-02 | NUR ---
Pt is resting peacefully. NAD.
--- NOTE | 2021-04-02 03:00 | NUR ---
Pt urinated on herself in bed. Escorted patient to the bathroom to help patient change her clothes. Bed and linen changed.
--- NOTE | 2021-04-02 05:05 | NUR ---
Pt is currently lying on the floor. Asked patient several times, to get up. Pt refused to get up.
--- NOTE | 2021-04-02 06:28 | NUR ---
Patient laying supine and will call out for various things. Continue to monitor.
--- NOTE | 2021-04-02 07:51 | NUR ---
Patient appears to be sleeping supine. No distress observed. Continue to monitor.
--- NOTE | 2021-04-02 08:40 | NUR ---
Patient ambulatory to BR steady gait. RN had to assist patient up to a standing position in bed. Patient took care of her own needs in the BR. Continue to monitor
--- NOTE | 2021-04-02 08:58 | NUR ---
Patient yells out she is going to [place] and we just have to get used to it. Continue to monitor.
--- NOTE | 2021-04-02 09:51 | NUR ---
[facility] pharmacy has an order for Sean Varela on 03/30/21. Yayo Lopez is who patient sees. Closed on Saturday. Please call Yayo Lopez on 04/03 to check and see if she received injection. Thanks.
[2021-04-02] MEDS: lithium carbonate 300mg SR tablet (LithoBID) PO SCH ×2 (10:47→19:44)
[2021-04-02] MEDS: levoTHYROXINE 100mcg tablet PO SCH (11:15)
--- NOTE | 2021-04-02 11:53 | NUR ---
RN assisted patient out of bed and then back into bed after walking herself to the BR. Patient is continually calling out to RN for something. Continue to monitor.
[2021-04-02] MEDS: naproxen 375mg tablet PO SCH ×3 (13:00→19:44)
--- NOTE | 2021-04-02 13:10 | NUR ---
Patient looked at lunch and said she wasn't hungry. No distress observed. Continue to monitor.
--- NOTE | 2021-04-02 13:46 | NUR ---
RN assisted patient to standing to go to the BR. Patient went into the bathroom and immediately flushed the toilet and came out. RN said to patient there is no way you had time to sit and use the BR. Patient protested and said she had to go very little. Then patient went back and put herself in bed without any assistance. Patient is always having RN assist patient in getting into bed. Patient appears to have attention seeking behavior.
[2021-04-02] MEDS ORDERED: DICLOFENAC SODIUM TOP SCH (14:00)
--- NOTE | 2021-04-02 14:56 | NUR ---
Patient was quiet for about 30 minutes and started demanding again. Continue to monitor.
--- NOTE | 2021-04-02 15:46 | NUR ---
Patient was incontinent of urine. RN and Aide changed sheets and cleaned patient up. Continue to monitor.
--- NOTE | 2021-04-02 15:47 | NUR ---
Patient states she wears briefs at home. RN and Tech placed a brief on patient.
--- NOTE | 2021-04-02 16:40 | NUR ---
Patient is on the phone with her sister saying she is going home tomorrow. Patient laughing and chatting. No distress observed. Continue to monitor.
[2021-04-02] MEDS ORDERED: olanzapine 10mg tablet PO ONE (18:50)
--- NOTE | 2021-04-02 18:51 | NUR ---
Received patient laying in bed and constantly callining out to "nurse." Per report, patient has not slept in 24hrs; notified Dr. Riley and received N/O to stop Restoril, lower Trazodone to 300mg and one time order Zyprexa PO 10mg may repeat 5mg if needed.
[2021-04-02] MEDS: traZODone 150mg tablet PO SCH (19:44)
--- NOTE | 2021-04-02 20:51 | NUR ---
Observed sleeping in bed; no aparent distress and self repositioning.
[2021-04-02] MEDS ORDERED: temazepam 15mg capsule PO SCH (21:00)
[2021-04-02] MEDS ORDERED: traZODone 150mg tablet PO SCH (21:00)
[2021-04-02] MEDS ORDERED: OLANZapine 2.5MG tablet PO ONE (21:15)
--- NOTE | 2021-04-02 22:10 | NUR ---
Patient presents broken sleep post repeat Zyprexa PO 5mg. Kamran for help; redirects briefly and then continues behaviors.
[2021-04-02] MEDS ORDERED: LORazepam 1 MG tablet PO ONE (22:25)
[2021-04-02] MEDS ORDERED: diphenhydrAMINE 25mg capsule PO ONE (22:25)
--- NOTE | 2021-04-02 22:35 | NUR ---
One time order of Benadryl 50mg PO and Ativan 2mg PO provided and tolerated well.
[2021-04-02] MEDS: acetaminophen 325mg tablet PO PRN (23:37)
--- NOTE | 2021-04-02 23:38 | NUR ---
Patient continues to call out "nurse" 2-3 minutes apart; making somatic complaints and repeats sitting to laying position changes. PRN Tylenol provided for c/o URBINA.
--- NOTE | 2021-04-02 23:42 | NUR ---
Shade Classifier witnessed patient gently sit herself onto the floor and then sprawled out. Patient then cried out for help stating, "hurry I fell trying to go to the bathroom." Patient stood herslef up with verbal direction.
--- NOTE | 2021-04-03 02:03 | NUR ---
Patient up to use the restroom; walked on her own. Patient changed brief and put on clean scrub bottoms as she had, what appeared to be, food smears. Patient got herself back into bed and laying down quietly at this time.
--- NOTE | 2021-04-03 04:18 | NUR ---
Patient observed sleeping in bed; no apparent distress and self repositioning.
--- NOTE | 2021-04-03 06:19 | NUR ---
Patient sleeping; no apparent distress and self repositioning. Report given to JOCELYN Tolliver.
--- NOTE | 2021-04-03 06:41 | NUR ---
Patient sleeping supine. No distress observed. Continue to monitor.
[2021-04-03] MEDS: naproxen 375mg tablet PO SCH ×4 (08:00→20:08)
[2021-04-03] MEDS: levoTHYROXINE 100mcg tablet PO SCH (08:00)
[2021-04-03] MEDS: docusate sod 100mg capsule PO SCH (08:00)
[2021-04-03] MEDS: lithium carbonate 300mg SR tablet (LithoBID) PO SCH ×2 (08:00→20:08)
[2021-04-03] MEDS: sennosides 8.6mg tablet PO SCH (08:00)
--- NOTE | 2021-04-03 08:10 | NUR ---
Patient continues to sleep. No distress observed. Continue to monitor.
--- NOTE | 2021-04-03 10:03 | NUR ---
Patient awoke briefly and ambulatory to BR. No distress observed. Continue to monitor.
--- NOTE | 2021-04-03 11:50 | NUR ---
Patient sleeping again. No distress observed. Continue to monitor.
--- NOTE | 2021-04-03 13:55 | NUR ---
Patient eating her lunch. No distress observed. Continue to monitor.
[2021-04-03] MEDS ORDERED: paliperidone palmitate inj 234 MG/1.5 ML SYRINGE IM ONE (14:15)
--- NOTE | 2021-04-03 14:30 | NUR ---
Patient possibly going home. RN to give patient her Invega sustainta 234 mg. RN received phone call from [facility] stating she did not receive injection on 03/30. RN spoke to DANIA Campos who gave the order for the injection. Continue to monitor.
--- NOTE | 2021-04-03 15:50 | NUR ---
Naseem Galvin (with [facility]) called to see if pt was here. His phone numbers are [phone] and [phone].
--- NOTE | 2021-04-03 16:35 | NUR ---
Patient reclining supine. No distress observed. Continue to monitor.
--- NOTE | 2021-04-03 19:13 | NUR ---
The patient is resting quietly on her bed
[2021-04-03] MEDS: traZODone 150mg tablet PO SCH (20:08)
--- NOTE | 2021-04-03 21:15 | NUR ---
The patient has been accepted at [facility]
[2021-04-03] MEDS ORDERED: NAPR375T5 PO (21:52)
[2021-04-03] MEDS ORDERED: LIT300C PO (21:52)
[2021-04-03] MEDS ORDERED: TRAZ300T2 PO (21:52)
[2021-04-03] MEDS ORDERED: acetaminophen 325mg tablet PO PRN ×2 (21:55)
[2021-04-03] MEDS ORDERED: mag hydrox/Alum hydrox/simeth 30ml oral suspension PO PRN (21:55)
[2021-04-03] MEDS ORDERED: loperamide 2mg capsule PO PRN (21:55)
[2021-04-03] MEDS: LORazepam 1 MG tablet PO PRN (23:14)
[2021-04-03 23:38] VITALS: BP 130/73
--- NOTE | 2021-04-03 23:45 | NUR ---
Admission Note: Pt admitted from ER overflow, pt was escorted via wheelchair by PCT Ravin, safety check completed by Ravin, no contraband found. Skin check completed by myself and Greg BANKS, pts skin is clear. Reason for admit: Pt placed on a 5150 due to DTS/GD. She has a diagnosis of Schizoaffective D/O and per 5150 report pt was found wandering, she was sitting and lying in the middle of the road and was confused and disorganized. She lives in her own home and has [facility] support. Upon admission pt was visibly irritable, she wanted to hurry up and go to bed. She did answer questions and she does endorse positive A/H that tell her to hurt herself. She does report poor sleep over the last 11 days, denies any other stressors or events leading to her admission. She reports that she has been compliant with her meds. Medical Dx: Pt has hypothyrodism, hx of HTN(no current tx), hx of seizures per medical records(but patient denies), she reports chronic pain issues (bilateral knee pain and R shoulder pain), she is on NSAIDS to help control her pain. Pt is incontinent of urine, she was helped to change her brief prior to going to bed. She declined shower tonight, stating she wanted to wait till the morning. Pt was given PRN Ativan due to anxiety/agitation and then was able to sleep without problems.
--- NOTE | 2021-04-03 23:50 | NUR ---
Pt came out of her room and came down the cash with no pants on, when redirected pt became irritable. She stated she couldn't sleep, but I told her she had already had a Trazadone and needed to wait to see if the Ativan would help her relax. She was assisted back to her room and I did tell her she needs to be dressed when coming out of her room.
[2021-04-04 08:00] VITALS: BP 104/60
[2021-04-04] MEDS: docusate sod 100mg capsule PO SCH (08:20)
[2021-04-04] MEDS: sennosides 8.6mg tablet PO SCH (08:21)
[2021-04-04] MEDS: levoTHYROXINE 100mcg tablet PO SCH (08:21)
[2021-04-04] MEDS: lithium carbonate 300mg SR tablet (LithoBID) PO SCH ×2 (08:21→21:19)
[2021-04-04 08:35] LABS: HEMOGLOBIN A1C 4.9 % (4.5-6.2)
[2021-04-04 08:37] LABS: CHOL/HDL RATIO 2.6 (0.00-4.99); CHOLESTEROL 143 MG/DL (0-200); HDL CHOLESTEROL 54 MG/DL (35-60); LDL CHOLESTEROL 67 MG/DL (50-100); TRIGLYCERIDES 126 MG/DL (20-135)
[2021-04-04] MEDS: naproxen 375mg tablet PO SCH ×3 (08:37→21:19)
--- NOTE | 2021-04-04 17:34 | NUR ---
Nursing Progress Note: Heather Gillespie Legal hold: 5150 Client on involuntary status for DTS Report received from Nurse JOCELYN Muñiz with use of SBAR Why are they here: Pt placed on a 5150 due to DTS/GD. She has a diagnosis of Schizoaffective D/O and per 5150 report pt was found wandering, she was sitting and lying in the middle of the road and was confused and disorganized. She lives in her own home and has [facility] support. Assessment What has happened this shift: Pt. received sleeping in her room. Awoke to receive her medication and assessment 1:1 completed. Pt denies HI, but reported SI with no plan, pt presents as delusional AEB statements of hearing voices telling me to hurt myself. Pt. receptive to discussing her future plans I wanna go home and be all good Pt. spent most of shift sleeping. She received prune juice for constipation; effective with lg BM. Pt. approached abstract writer and reported I dont think my meeting with the doctor went well. Hydrate Control Tender encouraged pt. to attend group; she was not receptive. S/I, H/I: +SI, denies HI A/VH: +AH, denies VH Sleep: 5.0 hrs per NOC ADL's: Independent. Group attendance: No Were Meds: Yes Any med S/E: None Mental Status Exam Appearance: Older woman, disheveled hair and wearing green unit scrubs Eye contact: Good. Behavior: Cooperative Speech: Clear Mood: Calm, [place] Affect: Congruent with mood Thought process: Delusional Thought Content: going home Cognition: A/O X4 Insight: Fair Judgment: Fair Interventions PRN's used: None Therapeutic interventions: Provided 1:1 assessment with therapeutic conversation and active listening, medication administration/education/monitoring, encouragement, and positive reinforcement, Q 15 minute safety checks. Restraints/seclusion/emergency medication: None Justification of Continued Inpatient Treatment: Patient requires interruption of current crises, medication adjustment/monitoring, and a safe and supportive environment. At risk r/t pt was found wandering, she was sitting and lying in the middle of the road and was confused and disorganized.
[2021-04-04 19:55] VITALS: BP 99/53
[2021-04-04] MEDS: traZODone 150mg tablet PO SCH (21:20)
[2021-04-04] MEDS: LORazepam 1 MG tablet PO PRN (22:19)
--- NOTE | 2021-04-05 00:28 | NUR ---
Nursing Progress Note: Legal hold: 5150 Client on involuntary status for DTS Report received from JOCELYN Lopez with use of SBAR Why are they here: Pt placed on a 5150 due to DTS/GD. She has a diagnosis of Schizoaffective D/O and per 5150 report pt was found wandering, she was sitting and lying in the middle of the road and was confused and disorganized. She lives in her own home and has [facility] support. Assessment What has happened this shift: Patient laying in bed with covers pulled over her head at the beginning of shift. Patient is pleasant and cooperative with care; compliant with medication. PRN Ativan provided with positive effect. Patient denies SI, HI, A/VH; appeared to have been responding to IS prior to responding to travel writer. She expressed frustration for difficulty getting to sleep and requesting medications she had received in ER overflow. Patient ate HS snack and post Ativan she laid back down and appear to be sleeping without difficulty. S/I, H/I: Denies A/VH: Responding to IS Sleep: Refer to sleep assessment ADL's: Independent Group attendance: NA Were Meds: Yes Any med S/E: None observed or reported Mental Status Exam Appearance: Disheveled hair, green unit attire Eye contact: Good Behavior: Pleasant and cooperative, isolative, tired Speech: Clear. audible Mood: Anxious, Tired Affect: Congruent with mood Thought process: Linear Thought Content: Meeting needs, difficulty sleeping Cognition: A/O X4 Insight: Fair Judgment: Fair Interventions PRN's used: Ativan Therapeutic interventions: Provided 1:1 assessment with therapeutic conversation and active listening, medication administration/education/monitoring, encouragement, and positive reinforcement, Q 15 minute safety checks. Restraints/seclusion/emergency medication: None Justification of Continued Inpatient Treatment: Patient requires interruption of current crises, medication adjustment/monitoring, and a safe and supportive environment. At risk r/t pt was found wandering, she was sitting and lying in the middle of the road and was confused and disorganized.
[2021-04-05] MEDS: naproxen 375mg tablet PO SCH ×3 (07:36→20:44)
[2021-04-05] MEDS: levoTHYROXINE 100mcg tablet PO SCH (07:36)
[2021-04-05] MEDS: lithium carbonate 300mg SR tablet (LithoBID) PO SCH ×2 (07:36→20:44)
[2021-04-05] MEDS: docusate sod 100mg capsule PO SCH (07:36)
[2021-04-05] MEDS: sennosides 8.6mg tablet PO SCH (07:36)
[2021-04-05 08:00] VITALS: BP 105/63
--- NOTE | 2021-04-05 09:23 | NUR ---
PSYCHOSOCIAL ASSESSMENT Pt placed on a 5150 due to DTS/GD. She has a diagnosis of Schizoaffective D/O and per 5150 report pt was found wandering, she was sitting and lying in the middle of the road and was confused and disorganized. She lives in her own apartment and has [employer] support. She has outpatient mental health services through [facility]. Her director of casework department is Chinyere at the [facility]. Today when I spoke with Client she stated, I dont want to leave her until I have a new apartment. [facility] is taking too long to help me. We discussed her concerns with her current housing, she reported she needs knee and shoulder surgery and walking upstairs is hard for her. This Mathematics Department Chair reached out to her [facility] worker, Chinyere about these concerns. They are aware and working with the Pt. on these issues. They also confirmed that Pt. has an SS worker who goes to her home 4 hours a day. Her director of casework department also reported they feel she may have some cognitive issues of an organic nature that are causing her to wander and become forgetful. Otherwise her home is a safe space for her to return to. Pt. denied feeling suicidal today. Her thought content does appear to contain paranoid type thinking. Her mood was good with a labile affect. She struggled to remain calm any time this Mathematics Department Chair explained that there could be difficulty in attaining what she wanted (i.e finding a new apartment before she leaves [facility]). She did get frustrated but was able to pull back and maintain her composure. She was alert and oriented X 4. Izabella Partida LCSW
--- NOTE | 2021-04-05 17:31 | NUR ---
Nursing Progress Note: Legal hold: 5150 Client on involuntary status for GD/ DTS Report received from ANNETTA Muñiz with use of SBAR. Why are they here: Pt placed on a 5150 due to DTS/GD. She has a diagnosis of Schizoaffective D/O and per 5150 report pt was found wandering, she was sitting and lying in the middle of the road and was confused and disorganized. She lives in her own home and has [facility] support. Assessment What has happened this shift: Patient resting quietly in bed at the start of the shift. Awakens prior to breakfast requesting help but cannot articulate what she needs help with. Provider requests to speak to the patient to which she responds, I dont want to talk to you. Youre a crackpot. Later states, I like that doctor. We get along. Refuses to have vital signs checked. During 1:1 assessment when asked about AH/ VH patient states, I got all that, but Im not gonna talk about it Im mad at that aid right now. Patient states she is here because she was Lying across the tracks. Endorses suicidal ideation and states if discharged, Id walk out in traffic. Take a gun and blow my brains out. Blow everyone elses brains out. Patient asking for assistance with daily tasks but is able to perform them herself. No weakness noted or ROM deficiencies, but patient insists she needs help lifting her legs into bed and pulling up her covers. She then performs these tasks independently without prompting. S/I, H/I: Endorses SI and states, Id walk out in traffic. Take a gun and blow my brains out. Blow everyone elses brains out. A/VH: Endorses AH/ VH but will not elaborate. Sleep: 7 hours per NOC. Sleeps 1 hour in the morning. ADL's: Independent Group attendance: No Were Meds taken: Yes Any med S/E: None observed or reported Mental Status Exam Appearance: Older female with disheveled hair, no teeth or dentures wearing green unit scrubs. Eye contact: Good Behavior: Generally cooperative Speech: Clear, normal rate/ rhythm Mood: Not so good. Affect: Congruent with mood Thought process: Disorganized at times, tangential. Thought Content: Meeting needs, talking to doctor about treatment Cognition: A/O X2-[address] to person, place, and time Insight: Poor Judgment: Poor Interventions PRN's used: None Therapeutic interventions: Provided 1:1 assessment with therapeutic conversation and active listening, medication administration/education/monitoring, encouragement, and positive reinforcement, Q 15 minute safety checks. Restraints/seclusion/emergency medication: None Justification of Continued Inpatient Treatment: Patient requires interruption of current crises, medication adjustment/monitoring, and a safe and supportive environment. At risk r/t pt was found wandering, she was sitting and lying in the middle of the road and was confused and disorganized.
[2021-04-05 19:36] VITALS: BP 115/68
[2021-04-05 20:22] VITALS: BP 94/52
[2021-04-05] MEDS ORDERED: traZODone 150mg tablet PO SCH (21:00)
[2021-04-05] MEDS ORDERED: QUEtiapine 25mg tablet PO SCH (21:00)
[2021-04-06] MEDS: LORazepam 1 MG tablet PO PRN ×2 (00:01→00:46)
--- NOTE | 2021-04-06 00:01 | NUR ---
Nursing Progress Note: Legal hold: 5150 Client on involuntary status for GD/ DTS Report received from ANNETTA Lopez with use of SBAR. Why are they here: Pt placed on a 5150 due to DTS/GD. She has a diagnosis of Schizoaffective D/O and per 5150 report pt was found wandering, she was sitting and lying in the middle of the road and was confused and disorganized. She lives in her own home and has [facility] support. Assessment What has happened this shift: Patient awake at the start of the shift interacting appropriately with staff and peers. Asks about new medication orders and appears pleased that she will be starting Seroquel. States she has taken it before and, It works. Cooperative with medication and 1:1 assessment. Frequently requests help with tasks she is able to do independently. S/I, H/I: Endorses SI and states, Id shoot myself in the head. A/VH: Endorses AH/ VH but does not appear internally occupied. Sleep: See sleep assessment ADL's: Independent Group attendance: N/A Were Meds taken: Yes Any med S/E: None observed or reported Mental Status Exam Appearance: Older female with disheveled hair, no teeth or dentures wearing green unit scrubs. Eye contact: Good Behavior: Cooperative Speech: Clear, normal rate/ rhythm Mood: Fine. Affect: Congruent with mood Thought process: Disorganized at times, tangential. Thought Content: Meeting needs. Cognition: A/O X3 to person, place, and time Insight: Poor Judgment: Poor Interventions PRN's used: None Therapeutic interventions: Provided 1:1 assessment with therapeutic conversation and active listening, medication administration/education/monitoring, encouragement, and positive reinforcement, Q 15 minute safety checks. Restraints/seclusion/emergency medication: None Justification of Continued Inpatient Treatment: Patient requires interruption of current crises, medication adjustment/monitoring, and a safe and supportive environment. At risk r/t pt was found wandering, she was sitting and lying in the middle of the road and was confused and disorganized.
[2021-04-06] MEDS: sennosides 8.6mg tablet PO SCH (07:42)
[2021-04-06] MEDS: docusate sod 100mg capsule PO SCH (07:42)
[2021-04-06] MEDS: naproxen 375mg tablet PO SCH ×3 (07:43→21:06)
[2021-04-06] MEDS: lithium carbonate 300mg SR tablet (LithoBID) PO SCH ×2 (07:43→21:06)
[2021-04-06] MEDS: levoTHYROXINE 100mcg tablet PO SCH (07:43)
[2021-04-06 08:00] VITALS: BP 115/62
[2021-04-06] MEDS ORDERED: BUPR1PAT22 TOP (09:45)
--- NOTE | 2021-04-06 14:00 | NUR ---
Initial: Pt admitted w/ psychotic behavior per EMR. Pt currently on Regular diet eating mostly 100% of meals meeting needs. [facility] 04/04 receiving routine bowel care. No nutrition intervention implemented at this time, will continue to monitor. Recs: 1. Continue Regular diet as tolerated 2. Bowel care per rx 3. Weekly wts Addendum: 04/06/21 at [address] Amended: Links added.
--- NOTE | 2021-04-06 17:06 | NUR ---
Nursing Progress Note: Heather Gillespie Legal hold: 5150 Client on involuntary status for DTS Report received from Nurse JOCELYN Muñiz with use of SBAR Why are they here: Pt placed on a 5150 due to DTS/GD. She has a diagnosis of Schizoaffective D/O and per 5150 report pt was found wandering, she was sitting and lying in the middle of the road and was confused and disorganized. She lives in her own home and has [facility] support. Assessment What has happened this shift: Pt. received sleeping in her room. Awoke to receive her medication and assessment 1:1 completed. Pt denies SI, HI, transdermal medication patch located on Rt. lower back; patch was not applied this shift. Pt. ate breakfast in dining room with cohorts. Refused scheduled vitals; tech to re approach. Pt. presents as disheveled with soiled scrubs; pt. is receptive to combing her hair and changing clothes later. Pt. self-isolated in her room after breakfast and approached content writer requesting to be tucked in to bed this request was verbalized compulsively several times; pt was redirected and encouraged to be independent, pt reported I have an [facility] worker who tucks me in. Sap Administrator accompanied pt to room and gave step by step instructions to cover herself up. Pt. refused to attend group this morning and this afternoon. Currently in bed napping before dinner. S/I, H/I: Denies A/VH: Denies Sleep: 6.0 hrs per NOC, with naps ADL's: Independent. Group attendance: No Were Meds Taken: Yes Any med S/E: None Mental Status Exam Appearance: Older woman, disheveled hair and wearing green unit scrubs Eye contact: Good. Behavior: self isolates, repetitive Speech: Clear Mood: Calm Affect: Congruent with mood Thought process: Disorganized Thought Content: being tucked in to bed Cognition: A/O X4 Insight: Fair Judgment: Fair Interventions PRN's used: None Therapeutic interventions: Provided 1:1 assessment with therapeutic conversation and active listening, medication administration/education/monitoring, encouragement, and positive reinforcement, Q 15 minute safety checks. Restraints/seclusion/emergency medication: None Justification of Continued Inpatient Treatment: Patient requires interruption of current crises, medication adjustment/monitoring, and a safe and supportive environment. At risk r/t pt was found wandering, she was sitting and lying in the middle of the road and was confused and disorganized.
[2021-04-06 19:00] VITALS: BP 98/61
[2021-04-06] MEDS: traZODone 50mg tablet PO SCH (21:07)
[2021-04-06] MEDS: QUEtiapine 25mg tablet PO SCH (21:08)
--- NOTE | 2021-04-06 23:22 | NUR ---
Nursing Progress Note: Legal hold: 5250 Client on involuntary status for GD/ DTS Report received from ANNETTA Lopez with use of SBAR. Why are they here: Pt placed on a 5150 due to DTS/GD. She has a diagnosis of Schizoaffective D/O and per 5150 report pt was found wandering, she was sitting and lying in the middle of the road and was confused and disorganized. She lives in her own home and has [facility] support. Assessment What has happened this shift: Patient laying in bed awake at the beginning of shift. Pleasant and cooperative with care; compliant with medication. Trazodone decreased to 100mg and Quetiapine raised to 150mg this shift. Patient denies SI, HI, A/VH; does not appear to be responding to IS and no delusional thoughts expressed. Patient yells out occasionally, even when capable of completing task. Patient participate in HS snack and promptly returned to bed; observed sleeping and does not appear to be having difficulty at this time. S/I, H/I: Denies A/VH: Denies Sleep: Refer to sleep assessment ADL's: Independent Group attendance: NA Were Meds taken: Yes Any med S/E: None observed or reported Mental Status Exam Appearance: Disheveled, appropriately dressed in green scrubs Eye contact: Good Behavior: Cooperative Speech: Clear, normal rate/ rhythm Mood: Tired Affect: Congruent with mood Thought process: Circumstantial Thought Content: Meeting needs Cognition: A/O X3 to person, place, and time Insight: Poor Judgment: Poor Interventions PRN's used: None Therapeutic interventions: Provided 1:1 assessment with therapeutic conversation and active listening, medication administration/education/monitoring, encouragement, and positive reinforcement, Q 15 minute safety checks. Restraints/seclusion/emergency medication: None Justification of Continued Inpatient Treatment: Patient requires interruption of current crises, medication adjustment/monitoring, and a safe and supportive environment. At risk r/t pt was found wandering, she was sitting and lying in the middle of the road and was confused and disorganized.
[2021-04-07] MEDS: levoTHYROXINE 100mcg tablet PO SCH (07:31)
[2021-04-07 08:00] VITALS: BP 109/78
[2021-04-07] MEDS: sennosides 8.6mg tablet PO SCH (08:17)
[2021-04-07] MEDS: lithium carbonate 300mg SR tablet (LithoBID) PO SCH ×2 (08:17→21:05)
[2021-04-07] MEDS: naproxen 375mg tablet PO SCH ×3 (08:17→21:05)
[2021-04-07] MEDS: docusate sod 100mg capsule PO SCH (08:17)
[2021-04-07 09:35] LABS: BASOPHILS % (AUTO) 0.5 % (0-1); EOSINOPHILS # (AUTO) 0.1 X10'3 (0-0.9); EOSINOPHILS % (AUTO) 2.7 % (0-6); HEMATOCRIT 31.3 % (35.0-45.0); HEMOGLOBIN 10.4 g/dl (12.0-16.0); LYMPHOCYTES % (AUTO) 20.8 % (21-51); MEAN CORPUSCULAR HGB CONC 33.3 g/dL (33.0-36.5); MEAN CORPUSCULAR VOLUME 93.1 FL (78-98); MEAN PLATELET VOLUME 7.5 FL (7.4-10.4); MONOCYTES # (AUTO) 0.3 X10'3 (0-0.9); MONOCYTES % (AUTO) 6.6 % (2-12); NEUTROPHILS # (AUTO) 3.2 X10'3 (1.8-7.7); NEUTROPHILS % (AUTO) 69.4 % (42-75); PLATELET COUNT 251 X10'3 (140-440); RED BLOOD COUNT 3.36 X10'6 (4.20-5.60); RED CELL DISTRIBUTION WIDTH 13.7 % (11.5-14.5); WHITE BLOOD COUNT 4.7 X10'3 (4.5-11.0)
[2021-04-07 09:55] LABS: ALBUMIN 3.3 G/DL (3.4-5.0); ANION GAP 8 (8-16); BLOOD UREA NITROGEN 20 MG/DL (7-18); CALCIUM 9.1 MG/DL (8.5-10.1); CHLORIDE 108 MMOL/L (99-107); CREATININE 1.05 MG/DL (0.40-0.90); GLUCOSE 122 MG/DL (70-104); POTASSIUM 4.4 MMOL/L (3.5-5.1); SODIUM 142 MMOL/L (135-145); TOTAL CARBON DIOXIDE 26.2 MMOL/L (24-32); eGFR 53 ML/MIN
--- NOTE | 2021-04-07 14:55 | NUR ---
Nursing Progress Note: Legal hold: 5250 Client on involuntary status for GD/DTS Report received from nurse with use of SBAR: JOCELYN Pulliam Why are they here: Pt placed on a 5150 due to DTS/GD. She has a diagnosis of Schizoaffective D/O and per 5150 report pt was found wandering, she was sitting and lying in the middle of the road and was confused and disorganized. She lives in her own home and has [employer] support. Assessment What has happened this shift: Received pt. sleeping in bed at the beginning of the shift, she awoke and independently used the BR, however upon returning to bed began yelling out for staff to "Cover her up!" Pt. requires encouragement and direction in order to independently preform ADLs throughout the day. Pt. attended breakfast in the Group Room with direction required from staff and afterwards 1:1 completed at bedside. Pt. presents as cooperative, slightly irritable, impulsive, guarded, withdrawn, and fatigued. She responds minimally to questions with some irritation. Pt. reports ongoing S/I, however when questioned by this writer editor regarding any plan, she stated irritably, "How can I do that when I'm here?!" Pt. denies any A/V/URBINA, and no delusional statements made. However, later pt. was observed to be responding aloud to herself while pacing the hallway stating, "I can't believe the changes you're making (referring to herself), you're eating and not doing drugs!" Pt. continued to exhibit some attention-seeking behaviors throughout the day AEB yelling aloud "Help" whenever a staff member walks by her door in order to complete a task she is capable of independently completing. Pt. requires occasional redirection and does become labile at times, however redirection is successful. Pt's IHSS worker, Emy, stopped by the hospital to pickle maker pt's house boyd per her consent. S/I, H/I: Pt. reports S/I, denies any plan A/VH: Pt. denies, however she is observed to actively responding aloud to internal stimuli Sleep: Sleep hours are 5.25, and pt. naps intermittently during the day ADL's: Pt. requires some encouragement and direction Group attendance:No, despite encouragement from staff Were meds taken: Yes Any med S/E: None Mental Status Exam Appearance: Disheveled r/t laying in bed, however appropriately dressed Eye contact: Moderate Behavior: Cooperative, slightly irritable, impulsive, guarded, withdrawn, and fatigued Speech: Minimal, irritable at times Mood: Guarded Affect: Labile Thought process: Poverty of thought with possible thought blocking Thought Content: Ongoing A/URBINA Cognition: A&O X4 Insight: Poor Judgment: Poor Interventions PRN's used: None Therapeutic interventions: Introduced self and established rapport, maintained a safe and supportive environment, ensured contract for safety, provided clear and simple instructions, encouraged independent performance of ADLs and participation on the unit, provided positive encouragement and redirection as needed, and maintained Q 15mi min safety checks. Restraints/seclusion/emergency medication: N/A Justification of Continued Inpatient Treatment: Per Dr. Riley, pt. is a high risk for discharge r/t ongoing psychotic s/s and S/I. She continues to require a safe and therapeutic environment and encouraged to participate on the unit. Addendum: 04/07/21 at 1613 by Eufemia Malik RN Obtained an order for an occult blood stool test from DANIA Rm r/t pt's laboratory results indicating anemia.
[2021-04-07 19:00] VITALS: BP 115/60
[2021-04-07] MEDS: QUEtiapine 25mg tablet PO SCH (21:05)
[2021-04-07] MEDS: LORazepam 1 MG tablet PO PRN (21:05)
[2021-04-07] MEDS: traZODone 50mg tablet PO SCH (21:05)
--- NOTE | 2021-04-08 00:17 | NUR ---
Nursing Progress Note: Legal hold: 5250 Client on involuntary status for GD/ DTS Report received from ANNETTA Lopez with use of SBAR. Why are they here: Pt placed on a 5150 due to DTS/GD. She has a diagnosis of Schizoaffective D/O and per 5150 report pt was found wandering, she was sitting and lying in the middle of the road and was confused and disorganized. She lives in her own home and has [facility] support. Assessment What has happened this shift: Patient laying in bed at the beginning of shift. She is pleasant and cooperative with care; compliant with medication. PRN Ativan provided as she appeared to be experiencing increased anxiety. Patient denies SI, HI, A/VH; does not appear to be responding to IS. Patient joking with staff at bedside. She continues to ask frequently to be tucked in. Patient participated in HS snack prior to bed; observed sleeping and does not appear to be having difficulty. Patient incontinent of urine this shift; brief and chucks provided. S/I, H/I: Denies A/VH: Denies Sleep: Refer to sleep assessment ADL's: Independent Group attendance: NA Were Meds taken: Yes Any med S/E: None observed or reported Mental Status Exam Appearance: Disheveled, appropriately dressed in green scrubs Eye contact: Good Behavior: Cooperative Speech: Clear, normal rate/ rhythm Mood: Tired Affect: Congruent with mood Thought process: Circumstantial Thought Content: Meeting needs Cognition: A/O X3 to person, place, and time Insight: Poor Judgment: Poor Interventions PRN's used: Ativan Therapeutic interventions: Provided 1:1 assessment with therapeutic conversation and active listening, medication administration/education/monitoring, encouragement, and positive reinforcement, Q 15 minute safety checks. Restraints/seclusion/emergency medication: None Justification of Continued Inpatient Treatment: Patient requires interruption of current crises, medication adjustment/monitoring, and a safe and supportive environment. At risk r/t pt was found wandering, she was sitting and lying in the middle of the road and was confused and disorganized.
[2021-04-08] MEDS: docusate sod 100mg capsule PO SCH (07:35)
[2021-04-08] MEDS: levoTHYROXINE 100mcg tablet PO SCH (07:35)
[2021-04-08] MEDS: lithium carbonate 300mg SR tablet (LithoBID) PO SCH ×2 (07:35→20:29)
[2021-04-08] MEDS: naproxen 375mg tablet PO SCH ×3 (07:35→20:29)
[2021-04-08] MEDS: sennosides 8.6mg tablet PO SCH (07:35)
[2021-04-08 08:00] VITALS: BP 108/69
--- NOTE | 2021-04-08 15:44 | NUR ---
Nursing Progress Note: Legal hold: 5250 Client on involuntary status for GD/DTS Report received from nurse with use of SBAR: JOCELYN Lopez Why are they here: Pt placed on a 5150 due to DTS/GD. She has a diagnosis of Schizoaffective D/O and per 5150 report pt was found wandering, she was sitting and lying in the middle of the road and was confused and disorganized. She lives in her own home and has [employer] support. Assessment What has happened this shift: Received pt. sleeping in bed at the beginning of the shift, she was awoken by staff to attend breakfast in the Group Room, and afterwards returned to bed. Pt. was compliant with all medications, however continues to exhibit some mild irritation and stated, "Leave me alone, I want to sleep!" 1:1 completed later at bedside, pt. was more cooperative with assessment this shift. She denies any further S/I, depression, or anxiety. She states, "I'm ready to leave when the doctor discharges me." However, she reports she would like to go to her sister's house instead of her own home, because she wants to see a new baby that has been born in her family. Pt. naps intermittently during the shift, she exhibits few attention seeking behaviors this shift, only asking staff to "Cover her up," several times. Pt. is able to be redirected to independently complete this task without becoming agitated. Pt's IHSS worker called this shift and confided to staff that she would like the pt. to stop calling her as frequently as she has been, and to respect her boundaries. This was endorsed to the pt. by this comic writer who at first became agitated, however later reported understanding. S/I, H/I: Denies A/VH: Denies, does not appear to be responding to internal stimuli Sleep: Sleep hours are 5 and pt. naps intermittently during the day ADL's: Pt. requires some encouragement and direction Group attendance:N/A Were meds taken: Yes Any med S/E: None Mental Status Exam Appearance: Disheveled r/t laying in bed, however appropriately dressed Eye contact: Moderate Behavior: Cooperative, impulsive, guarded, withdrawn, and fatigued Speech: WNL Mood: Guarded Affect: Slightly labile Thought process: Linear Thought Content: Some preoccupation with making phone calls, pt. was provided education to decrease the frequency of these calls per request from her [facility] worker. Cognition: A&O X4 Insight: Poor Judgment: Poor Interventions PRN's used: None Therapeutic interventions: Maintained a safe and supportive environment, ensured contract for safety, provided clear and simple instructions, encouraged independent performance of ADLs and participation on the unit, provided positive encouragement and redirection as needed, and maintained Q 15mi min safety checks. Restraints/seclusion/emergency medication: N/A Justification of Continued Inpatient Treatment: Per DANIA Rm, pt. continues to require a safe and supportive environment and will discharge home when ready. Addendum: 04/08/21 at 1749 by Eufemia Malik RN Pt's Buprenorphine Patch was removed from her lower back and Suboxone was ordered by DAN[facility] Rm. Per pharmacy we do not carry the patches.
[2021-04-08 20:07] VITALS: BP 98/53
[2021-04-08] MEDS: traZODone 50mg tablet PO SCH (20:29)
[2021-04-08] MEDS: QUEtiapine 25mg tablet PO SCH (20:29)
--- NOTE | 2021-04-09 00:06 | NUR ---
Nursing Progress Note: Legal hold: 5250 Client on involuntary status for GD/ DTS Report received from ANNETTA Storey with use of SBAR. Why are they here: Pt placed on a 5150 due to DTS/GD. She has a diagnosis of Schizoaffective D/O and per 5150 report pt was found wandering, she was sitting and lying in the middle of the road and was confused and disorganized. She lives in her own home and has [facility] support. Assessment What has happened this shift: Patient laying in bed with covers pulled over her head at the beginning of shift. Pleasant and cooperative with care; compliant with medication. Patient self-initiating a little more this shift; getting up and down without requesting help and covering herself with blankets (only asked engineering writer to cover her once). Patient continues to use briefs but no urinary incontinent episodes at this time. She denies SI, HI, A/VH; does not appear to be responding to IS and no delusional thought content expressed this shift. Patient participated in HS snack and promptly returned to bed; observed sleeping and does not appear to be having difficulty. S/I, H/I: Denies A/VH: Denies Sleep: Refer to sleep assessment ADL's: Independent Group attendance: NA Were Meds taken: Yes Any med S/E: None observed or reported Mental Status Exam Appearance: Disheveled, appropriately dressed in green scrubs Eye contact: Good Behavior: Pleasant and cooperative, isolative Speech: Clear, normal rate/ rhythm Mood: Tired Affect: Congruent with mood Thought process: Circumstantial Thought Content: Meeting needs Cognition: A/O X3 to person, place, and time Insight: Poor Judgment: Poor Interventions PRN's used: None Therapeutic interventions: Provided 1:1 assessment with therapeutic conversation and active listening, medication administration/education/monitoring, encouragement, and positive reinforcement, Q 15 minute safety checks. Restraints/seclusion/emergency medication: None Justification of Continued Inpatient Treatment: Patient requires interruption of current crises, medication adjustment/monitoring, and a safe and supportive environment. At risk r/t pt was found wandering, she was sitting and lying in the middle of the road and was confused and disorganized.
[2021-04-09 08:29] VITALS: BP 91/62
[2021-04-09] MEDS: naproxen 375mg tablet PO SCH ×3 (09:10→20:44)
[2021-04-09] MEDS: lithium carbonate 300mg SR tablet (LithoBID) PO SCH ×2 (09:10→20:45)
[2021-04-09] MEDS: levoTHYROXINE 100mcg tablet PO SCH (09:10)
[2021-04-09] MEDS: docusate sod 100mg capsule PO SCH (09:10)
[2021-04-09] MEDS: buprenorphine/naloxone 2-0.5mg sublingual tablet SL SCH (09:11)
[2021-04-09] MEDS: sennosides 8.6mg tablet PO SCH (09:11)
--- NOTE | 2021-04-09 16:13 | NUR ---
Nursing Progress Note: Legal hold: 5250 Client on involuntary status for GD/DTS Report received from nurse with use of SBAR: JOCELYN Lopez Why are they here: Pt placed on a 5150 due to DTS/GD. She has a diagnosis of Schizoaffective D/O and per 5150 report pt was found wandering, she was sitting and lying in the middle of the road and was confused and disorganized. She lives in her own home and has [facility] support. Assessment What has happened this shift: Received pt. sleeping in bed at the beginning of the shift, she was awoken by staff to attend breakfast in the Group Room, and afterwards returned to bed. Pt. was compliant with all medications, 1:1 completed later at bedside, She denies any further S/I, depression, or anxiety. Pt. naps intermittently during the shift, she exhibits few attention seeking behaviors this shift, only asking staff to "Cover her up," several times along with "will you dial the phone for me". Staff has set boundaries about ADL's, covering her up and dialing the phone. Patient is capable of doing all of these things on her own. S/I, H/I: Denies A/VH: Denies Sleep: naps intermittently during the day ADL's: Pt. requires some encouragement and direction no shower today Group attendance:N/A Were meds taken: Yes Any med S/E: None Mental Status Exam Appearance: Disheveled Eye contact: Moderate Behavior: Cooperative, impulsive Speech: WNL Mood: Guarded Affect: Slightly labile Thought process: Linear Thought Content: Some preoccupation with making phone calls, pt. was provided education to decrease the frequency of these calls per request from her SS worker. Patient was reminded of this again today. Cognition: A&O X4 Insight: Poor Judgment: Poor Interventions PRN's used: None Therapeutic interventions: Maintained a safe and supportive environment, ensured contract for safety, provided clear and simple instructions, encouraged independent performance of ADLs and participation on the unit, provided positive encouragement and redirection as needed, and maintained Q 15mi min safety checks. Restraints/seclusion/emergency medication: N/A Justification of Continued Inpatient Treatment: Patient need more time in this controlled enviorment along with medication monitoring. Plan is to have patient return to her home with her wrap around services from [facility]. If released today patient ould be at risk for re-admission. Addendum: 04/09/21 at 1746 by Anayeli Reveles RN [id number] Ativan 1 mg prn anxiety
[2021-04-09] MEDS: LORazepam 1 MG tablet PO PRN (17:40)
[2021-04-09 19:50] VITALS: BP 97/55
[2021-04-09] MEDS: QUEtiapine 25mg tablet PO SCH (20:44)
[2021-04-09] MEDS: traZODone 50mg tablet PO SCH (20:44)
--- NOTE | 2021-04-10 03:27 | NUR ---
Nursing Progress Note: Legal hold: 5250 Client on involuntary status for GD/DTS Report received from nurse with use of SBAR: [place] RN Why are they here: Pt placed on a 5150 due to DTS/GD. She has a diagnosis of Schizoaffective D/O and per 5150 report pt was found wandering, she was sitting and lying in the middle of the road and was confused and disorganized. She lives in her own home and has [facility] support. Assessment What has happened this shift: Pt up on the unit at start of shift. Pt verbalized anger at her IHSS worker wants to replace her. This is most likely related to the fact the IHSS worker asked that the pt not call her so often. Went to bed for a while got up to the group room for snack. Asked if she had SI pt said of course she also said she hears voices that tell her to kill people. She said all this in a cheerful light-hearted tone it did not seem sincere. Pt had an episode while lying in bed started yelling help me over and over again. When asked what she wanted she said I need help Pressed to be more specific I need a boost informed she can boost herself up in bed. Pt got up independently and went to the BR. S/I, H/I: Yes both A/VH: Voices tell her to kill people. Sleep: asleep at this time ADL's: Pt. requires some encouragement and direction no shower today Group attendance: N/A Were meds taken: Yes Any med S/E: None Mental Status Exam Appearance: Disheveled Eye contact: Moderate Behavior: Cooperative, impulsive Speech: WNL Mood: Guarded Affect: Slightly labile Thought process: Linear Thought Content: Some preoccupation with making phone calls, pt. was provided education to decrease the frequency of these calls per request from her IHSS worker. Patient was reminded of this again today. Cognition: A&O X4 Insight: Poor Judgment: Poor Interventions PRN's used: None Therapeutic interventions: Maintained a safe and supportive environment, ensured contract for safety, provided clear and simple instructions, encouraged independent performance of ADLs and participation on the unit, provided positive encouragement and redirection as needed, and maintained Q 15mi min safety checks. Restraints/seclusion/emergency medication: N/A Justification of Continued Inpatient Treatment: Patient need more time in this controlled environment along with medication monitoring. Plan is to have patient return to her home with her wrap around services from [facility]. If released today patient could be at risk for re-admission
[2021-04-10 08:00] VITALS: BP 108/60
[2021-04-10] MEDS: lithium carbonate 300mg SR tablet (LithoBID) PO SCH ×2 (08:31→20:38)
[2021-04-10] MEDS: sennosides 8.6mg tablet PO SCH (08:31)
[2021-04-10] MEDS: docusate sod 100mg capsule PO SCH (08:32)
[2021-04-10] MEDS: naproxen 375mg tablet PO SCH ×3 (08:33→20:38)
[2021-04-10] MEDS: levoTHYROXINE 100mcg tablet PO SCH (08:33)
[2021-04-10] MEDS: buprenorphine/naloxone 2-0.5mg sublingual tablet SL SCH (08:33)
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
--- NOTE | 2021-04-10 16:58 | NUR ---
Nursing Progress Note: Legal hold: 5250 Client on involuntary status for GD/DTS Report received from nurse with use of SBAR: JOCELYN Lopez Why are they here: Pt placed on a 5150 due to DTS/GD. She has a diagnosis of Schizoaffective D/O and per 5150 report pt was found wandering, she was sitting and lying in the middle of the road and was confused and disorganized. She lives in her own home and has [facility] support. Assessment What has happened this shift: Patient was asleep at change of shift and missed breakfast. Patient spends most of her time in bed. RN had an admission is patient's room and patient kept on interrupting RN with silly questions. Patient has attention seeker behaviors. Patient is perseverating on [place] dinner and having RN make it for her. Patient called her [facility] worker and told her that the RN is going to make her prime rib for [place]. Patient denies suicidal/homicidal ideation. Denies audio/visual hallucinations. Patient is disorganized and gets easily distracted. S/I, H/I: Denies A/VH: Denies Sleep: naps off and on during the day. ADL's: Needs encouragement Group attendance:No Were meds taken: Yes Any med S/E: None Mental Status Exam Appearance: Disheveled Eye contact: Moderate Behavior: Cooperative, Intrusive Speech: Loud Mood: Talkative, Persistent Affect: Animated Thought process: Linear and then disorganized Thought Content: [place] dinner Cognition: A&O X4 Insight: Poor Judgment: Poor Interventions PRN's used: None Therapeutic interventions: Maintained a safe and supportive environment, ensured contract for safety, provided clear and simple instructions, encouraged independent performance of ADLs and participation on the unit, provided positive encouragement and redirection as needed, and maintained Q 15mi min safety checks. Restraints/seclusion/emergency medication: N/A Justification of Continued Inpatient Treatment: Patient need more time in this controlled enviorment along with medication monitoring. Plan is to have patient return to her home with her wrap around services from [facility]. If released today patient would be at risk for re-admission.
[2021-04-10 19:49] VITALS: BP 96/56
[2021-04-10] MEDS: traZODone 50mg tablet PO SCH (20:38)
[2021-04-10] MEDS: QUEtiapine 25mg tablet PO SCH (20:38)
[2021-04-10] MEDS: LORazepam 1 MG tablet PO PRN (23:17)
--- NOTE | 2021-04-11 01:58 | NUR ---
Nursing Progress Note: Legal hold: 5250 Client on involuntary status for GD/DTS Report received from nurse with use of SBAR: JOCELYN Storey Why are they here: Pt placed on a 5150 due to DTS/GD. She has a diagnosis of Schizoaffective D/O and per 5150 report pt was found wandering, she was sitting and lying in the middle of the road and was confused and disorganized. She lives in her own home and has [facility] support. Assessment What has happened this shift: Pt sleeping at start of shift. Awakened went to group room for snack. Cooperative with care took all medications. No requests for help doing things she is capable of doing herself this shift. Went to bed then up and loud in halls wanting snacks. Given Snacks back to bed sleeping at this time. S/I, H/I: denied A/VH: denied Sleep: asleep at this time ADL's: Pt. requires some encouragement Group attendance: N/A Were meds taken: Yes Any med S/E: None Mental Status Exam Appearance: Disheveled Eye contact: Moderate Behavior: Cooperative, impulsive Speech: WNL Mood: Guarded Affect: Slightly labile Thought process: Linear Thought Content: Getting snacks Cognition: A&O X4 Insight: Poor Judgment: Poor Interventions PRN's used: None Therapeutic interventions: Maintained a safe and supportive environment, ensured contract for safety, provided clear and simple instructions, encouraged independent performance of ADLs and participation on the unit, provided positive encouragement and redirection as needed, and maintained Q 15mi min safety checks. Restraints/seclusion/emergency medication: N/A Justification of Continued Inpatient Treatment: Patient need more time in this controlled environment along with medication monitoring. Plan is to have patient return to her home with her wrap around services from [facility]. If released today patient could be at risk for re-admission Addendum: 04/11/21 at 0518 by Alice Lewis RN Pt sent roommate to nurses station to inform staff she was unable to walk. Pt got up and walked without difficulty. Pt made other demands, help getting back in bed, help changing her depends and getting covered up. All things she can do for herself. Roommate offered to change rooms she declined.
[2021-04-11] MEDS: docusate sod 100mg capsule PO SCH (07:46)
[2021-04-11] MEDS: sennosides 8.6mg tablet PO SCH (07:46)
[2021-04-11] MEDS: buprenorphine/naloxone 2-0.5mg sublingual tablet SL SCH ×2 (07:46→08:00)
[2021-04-11] MEDS: levoTHYROXINE 100mcg tablet PO SCH (07:46)
[2021-04-11] MEDS: naproxen 375mg tablet PO SCH ×3 (07:46→20:11)
[2021-04-11] MEDS: lithium carbonate 300mg SR tablet (LithoBID) PO SCH ×2 (07:46→20:11)
--- NOTE | 2021-04-11 08:21 | NUR ---
Patient spit out the medication and found on floor. 4 tabs. RN wasted. RN found 2 tabs yesterday stuck on patient's bed. Per Dr Order will cancel Suboxone.
[2021-04-11 08:36] VITALS: BP 106/64
--- NOTE | 2021-04-11 16:55 | NUR ---
Nursing Progress Note: Legal hold: 5250 Client on involuntary status for GD/DTS Report received from nurse with use of SBAR: JOCELYN Lopez Why are they here: Pt placed on a 5150 due to DTS/GD. She has a diagnosis of Schizoaffective D/O and per 5150 report pt was found wandering, she was sitting and lying in the middle of the road and was confused and disorganized. She lives in her own home and has [facility] support. Assessment What has happened this shift: Patient was asleep at change of shift and up for breakfast. RN gave patient her medication in the Rec Room. Her last medication was the sublingual Suboxone. Patient spit the pills out on the floor once RN walked out. Tech Spacedeck found the 4 tabs on the floor in the Rec Room. RN reported to zinc furnace charger and to Dr. Riley. Dr. Riley lowered the dose ot the medication and changed the medication to film instead of tablets. Patient denies suicidal/homicidal ideation. Patient denies audio/visual hallucinations. Patient keeps speaking to the RN about the RN making her dinner for [employer]. RN explains that those type of things are not allowed between psych nurse and patient. Patient states, we will talk to someone to give us the okay. Patient was pleasant today and RN observed patient's attention seeking behavior. Patient asked RN to help her into bed when she gets into bed without any problem. RN called patient on her scheme and called the patient a trickster. Patient laughed. No distress observed today. S/I, H/I: Denies A/VH: Denies Sleep: naps off and on during the day. ADL's: Needs encouragement Group attendance:No Were meds taken: Yes Any med S/E: None Mental Status Exam Appearance: Disheveled Eye contact: Moderate Behavior: Cooperative, Intrusive Speech: Loud Mood: Talkative, Persistent Affect: Animated Thought process: Linear and then disorganized Thought Content: [place] dinner Cognition: A&O X4 Insight: Poor Judgment: Poor Interventions PRN's used: None Therapeutic interventions: Maintained a safe and supportive environment, ensured contract for safety, provided clear and simple instructions, encouraged independent performance of ADLs and participation on the unit, provided positive encouragement and redirection as needed, and maintained Q 15mi min safety checks. Restraints/seclusion/emergency medication: N/A Justification of Continued Inpatient Treatment: Patient need more time in this controlled enviorment along with medication monitoring. Plan is to have patient return to her home with her wrap around services from [facility]. If released today patient would be at risk for re-admission.
[2021-04-11] MEDS: traZODone 50mg tablet PO SCH (20:11)
[2021-04-11] MEDS: LORazepam 1 MG tablet PO PRN (20:11)
[2021-04-11 20:45] VITALS: BP 105/61
[2021-04-11] MEDS ORDERED: quetiapine 100mg tablet PO SCH (21:00)
--- NOTE | 2021-04-11 22:22 | NUR ---
Nursing Progress Note: Legal hold: 5250 Client on involuntary status for GD/DTS Report received from nurse with use of SBAR: JOCELYN Lopez Why are they here: Pt placed on a 5150 due to DTS/GD. She has a diagnosis of Schizoaffective D/O and per 5150 report pt was found wandering, she was sitting and lying in the middle of the road and was confused and disorganized. She lives in her own home and has [facility] support. Assessment What has happened this shift: Patient was asleep in bed at change of shift. Patient's roommate took a shower and was speaking to the RN loudly. Patient awoke and kept coming out of her room saying she is going to leave. Patient encouraged back to bed. RN gave patient her medication. Patient denies SI/HI and denies A/V hallucinations. Patient states she wants to go home tomorrow and then a few minutes later she decided she needs some more time here. Patient a little agitated when she was getting up but mostly patient had a good evening. S/I, H/I: Denies A/VH: Denies Sleep: went to bed early evening but awoke in late night. ADL's: Needs encouragement Group attendance:N/A Were meds taken: Yes Any med S/E: None Mental Status Exam Appearance: Disheveled Eye contact: Moderate Behavior: Cooperative, Intrusive Speech: Loud Mood: Talkative, Persistent Affect: Animated Thought process: Linear and then disorganized Thought Content: wanting to go home Cognition: A&O X4 Insight: Poor Judgment: Poor Interventions PRN's used: None Therapeutic interventions: Maintained a safe and supportive environment, ensured contract for safety, provided clear and simple instructions, encouraged independent performance of ADLs and participation on the unit, provided positive encouragement and redirection as needed, and maintained Q 15mi min safety checks. Restraints/seclusion/emergency medication: N/A Justification of Continued Inpatient Treatment: Patient need more time in this controlled enviorment along with medication monitoring. Plan is to have patient return to her home with her wrap around services from [facility]. If released today patient would be at risk for re-admission.
[2021-04-11] MEDS: acetaminophen 325mg tablet PO PRN (23:23)
--- NOTE | 2021-04-12 00:04 | NUR ---
Pt continues to get up and down out of bed, despite increase in Seroquel, scheduled Trazadone and an Ativan. Contacted OCP Arturo Flood and he ordered to give Seroquel 200 mg po x 1 now. Pt did state that she is ready to go to [facility] to me tonight. No specific plan. I did try to encourage patient earlier in the shift to shower and change her clothes, she has strong body odor, hair is not brushed, scrubs have food all over them, but she refused to do so, saying she will do it tomorrow. She continues to request help with simple things like covering her up and keeps asking roommate for help, which is disrupting her sleep. Redirection has not worked.
[2021-04-12] MEDS ORDERED: quetiapine 100mg tablet PO ONE ×2 (00:05)
--- NOTE | 2021-04-12 00:25 | NUR ---
Pt up at the nurses station again, she stated " I have something important I need to do today!!" She started talking about her [employer] worker, unclear what exactly she was trying to say, but when I tried to tell patient that it was midnight and it needed to be taken care of in the morning the patient began to raise her voice, and become agitated. She was redirected to her room by the tech. Will continue to monitor.
--- NOTE | 2021-04-12 01:57 | NUR ---
Pt appeared to fall asleep for a short time and is now up again, she was requesting food, which she had already been given earlier. I instructed her to return to bed and try to sleep some more. Will continue to monitor.
[2021-04-12] MEDS: naproxen 375mg tablet PO SCH ×3 (07:23→20:36)
[2021-04-12] MEDS: sennosides 8.6mg tablet PO SCH (07:23)
[2021-04-12] MEDS: docusate sod 100mg capsule PO SCH (07:23)
[2021-04-12] MEDS: lithium carbonate 300mg SR tablet (LithoBID) PO SCH ×2 (07:23→20:36)
[2021-04-12] MEDS: levoTHYROXINE 100mcg tablet PO SCH (07:23)
[2021-04-12] MEDS: buprenorphine/naloxone 2-0.5mg sublingual tablet SL SCH (07:24)
[2021-04-12 08:00] VITALS: BP 114/74
[2021-04-12] MEDS: magnesium hydroxide 30ml (MOM) UD suspension PO PRN (15:19)
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
[2021-04-12 20:00] VITALS: BP 98/57
[2021-04-12] MEDS: quetiapine 100mg tablet PO SCH (20:36)
--- NOTE | 2021-04-13 00:17 | NUR ---
Pt continues to get up and down from bed despite increase in Seroquel to 300 mg. Contacted Arturo Flood and he gave one time order for Restoril 30 mg po x 1 now.
[2021-04-13] MEDS ORDERED: temazepam 15mg capsule PO ONE (00:20)
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
[2021-04-13 08:00] VITALS: BP 111/65
[2021-04-13] MEDS: naproxen 375mg tablet PO SCH ×3 (08:28→22:05)
[2021-04-13] MEDS: docusate sod 100mg capsule PO SCH (08:29)
[2021-04-13] MEDS: levoTHYROXINE 100mcg tablet PO SCH (08:29)
[2021-04-13] MEDS: buprenorphine/naloxone 2-0.5mg sublingual tablet SL SCH (08:29)
[2021-04-13] MEDS: sennosides 8.6mg tablet PO SCH (08:29)
[2021-04-13] MEDS: lithium carbonate 300mg SR tablet (LithoBID) PO SCH ×2 (08:36→22:05)
[2021-04-13 10:14] LABS: BASOPHILS % (AUTO) 0.1 % (0-1); EOSINOPHILS # (AUTO) 0.1 X10'3 (0-0.9); EOSINOPHILS % (AUTO) 3.1 % (0-6); HEMATOCRIT 29.6 % (35.0-45.0); LYMPHOCYTES # (AUTO) 1.2 X10'3 (1.1-4.8); LYMPHOCYTES % (AUTO) 26.4 % (21-51); MEAN CORPUSCULAR HEMOGLOBIN 31.2 PG (27.0-31.0); MEAN CORPUSCULAR HGB CONC 33.6 g/dL (33.0-36.5); MEAN CORPUSCULAR VOLUME 92.7 FL (78-98); MEAN PLATELET VOLUME 7.4 FL (7.4-10.4); MONOCYTES # (AUTO) 0.5 X10'3 (0-0.9); MONOCYTES % (AUTO) 9.9 % (2-12); NEUTROPHILS # (AUTO) 2.8 X10'3 (1.8-7.7); NEUTROPHILS % (AUTO) 60.5 % (42-75); PLATELET COUNT 238 X10'3 (140-440); RED BLOOD COUNT 3.19 X10'6 (4.20-5.60); RED CELL DISTRIBUTION WIDTH 13.5 % (11.5-14.5); WHITE BLOOD COUNT 4.7 X10'3 (4.5-11.0)
[2021-04-13] MEDS: magnesium hydroxide 30ml (MOM) UD suspension PO PRN (10:21)
--- NOTE | 2021-04-13 16:50 | NUR ---
Nursing Progress Note: Heather Gillespie Legal hold: 5150 Client on involuntary status for DTS Report received from Nurse JOCELYN Muñiz with use of SBAR Why are they here: Pt placed on a 5150 due to DTS/GD. She has a diagnosis of Schizoaffective D/O and per 5150 report pt was found wandering, she was sitting and lying in the middle of the road and was confused and disorganized. She lives in her own home and has [facility] support. Assessment What has happened this shift: Pt. received sleeping in her room. She woke to receive her medications and went to breakfast in dinning room. Pt. returned to bed and went back to sleep. Pt. awoke and assessment 1:1 completed pt. denies H/I and endorses S/I pt. is guarded and reports I dont have a plan I just think that way. Pt. did not attend group and slept most of the morning. Pt. queued to attend lunch in dining room. Pt presents as agitated AEB yelling at insurance underwriter sales leave me alone right now as insurance underwriter sales was inquiring about recent bowel care. Pt. received MOM yesterday; she reports no bowel movement. Bowel assessment completed and presents with hypo active bowel sounds, no abdominal distension, no pain, or emesis. Spoke to provider and a N.O for Miralax Qday X4 days was obtained in addition provider DC PO buprenorphn-naloxn 2-0.5mg SL tablet. Pt. did eat lunch and returned to her room for most of the afternoon. Currently sleeping in her room before dinner. S/I, H/I: Endorses SI, denies HI A/VH: Denies Sleep: 5 hrs per NOC, naps throughout the day ADL's: Independent. Group attendance: No Were Meds Taken: Yes Any med S/E: None Mental Status Exam Appearance: Older woman, disheveled hair and wearing green unit scrubs Eye contact: Good. Behavior: Cooperative, repetitive Speech: Clear Mood: Calm, [place] Affect: Congruent with mood Thought process: Disorganized Thought Content: Im constipated Cognition: A/O X4 Insight: Fair Judgment: Fair Interventions PRN's used: MOM Therapeutic interventions: Provided 1:1 assessment with therapeutic conversation and active listening, medication administration/education/monitoring, encouragement, and positive reinforcement, Q 15 minute safety checks. Restraints/seclusion/emergency medication: None Justification of Continued Inpatient Treatment: Patient requires interruption of current crises, medication adjustment/monitoring, and a safe and supportive environment. At risk r/t pt was found wandering, she was sitting and lying in the middle of the road and was confused and disorganized.
[2021-04-13 19:00] VITALS: BP 99/51
[2021-04-13] MEDS: quetiapine 100mg tablet PO SCH (22:06)
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
[2021-04-14] MEDS: lithium carbonate 300mg SR tablet (LithoBID) PO SCH ×2 (07:51→20:19)
[2021-04-14] MEDS: sennosides 8.6mg tablet PO SCH (07:51)
[2021-04-14] MEDS: levoTHYROXINE 100mcg tablet PO SCH (07:51)
[2021-04-14] MEDS: polyethylene glycol 3350 17gm powd pack PO SCH (07:52)
[2021-04-14] MEDS: docusate sod 100mg capsule PO SCH (07:52)
[2021-04-14] MEDS: naproxen 375mg tablet PO SCH ×3 (07:52→20:19)
[2021-04-14 08:45] VITALS: BP 104/64
--- NOTE | 2021-04-14 14:49 | NUR ---
Reassessment: Pt continues eating well with 75-100% PO intake on regular diet. LBM 04/09. Pt s/p KUB today which showed "moderate to large stool burden compatible with constipation" per report. Pt receiving routine Colace and Senna with routine Miralax added to med list today. Pt with PRN MoM available, last given 04/13 per EMR. D/w dietary to send prunes and prune juice with next meal to further assist with bowel regularity. Will continue to follow and monitor need for additional nutrition intervention. Recommendations: 1. Continue regular diet 2. Routine bowel care 3. Weekly scaled wts Addendum: 04/14/21 at 1452 by [address]upe Guz[address] RD Amended: Links added.
--- NOTE | 2021-04-14 16:42 | NUR ---
Nursing Progress Note: Heather Gillespie Legal hold: 5250 Client on involuntary status for DTS/GD Report received from Nurse Chinyere Crenshaw RN with use of SBAR Why are they here: Pt placed on a 5150 due to DTS/GD. She has a diagnosis of Schizoaffective D/O and per 5150 report pt was found wandering, she was sitting and lying in the middle of the road and was confused and disorganized. She lives in her own home and has [facility] support. Assessment What has happened this shift: Patient was observed sleeping in her room at change of shift. She was awoken to receive her medication and went to the community room for breakfast. She is complaint with all medications. She was noted sitting quietly in the community room with peers. Patient retreated back to her room shortly after. 1:1 assessment completed, lungs CTA. She presents as guarded, anxious, and isolative. She denies SI/HI, AH or VH. Does not appear to be responding to internal stimuli. Patient approached this service writer appearing tearful and distraught that her SS worker has money that belongs to her. Patient reassured and redirected. She declined to participate in group therapy today despite encouragement. This service writer inquired with patient about her last bowel movement. Patient stated, It has been days! Last BM documented on 04/09/21. Abdomen soft, non-distended, hypoactive bowel sounds x4. Dr. Riley notified, KUB ordered. Will continue to monitor. Patient noted sleeping in bed most of the day. When approached by this service writer she endorsed that she just wants to sleep. Patient responding minimally, not willing to engage. She spent the majority of the day self-isolating to her room. She joined in the community room for snack and meal times. S/I, H/I: Denies A/VH: Denies. Does not appear internally preoccupied. Sleep: 7.75 hrs per NOC, naps throughout the day ADL's: Independent Group attendance: No Were Meds Taken: Yes Any med S/E: None observed or reported Mental Status Exam Appearance: Older woman, disheveled hair, wearing green unit scrubs Eye contact: Good, intense at times Behavior: Cooperative, repetitive Speech: Clear Mood: Calm and bouts of anxiety (situational) Affect: Congruent with mood Thought process: Disorganized, situational Thought Content: Wanting to sleep. Meeting needs. Cognition: A&O x4 Insight: Fair Judgment: Fair Interventions PRN's used: N/A Therapeutic interventions: Provided 1:1 assessment with therapeutic conversation and active listening, medication administration/education/monitoring, encouragement to participate on the unit, positive reinforcement, and Q 15 minute safety checks. Restraints/seclusion/emergency medication: None Justification of Continued Inpatient Treatment: Patient requires interruption of current crises, medication adjustment/monitoring, and a safe and supportive environment. At risk r/t pt was found wandering, she was sitting and lying in the middle of the road and was confused and disorganized. Patient continues to be high risk for discharge.
[2021-04-14 19:26] VITALS: BP 105/64
[2021-04-14] MEDS: quetiapine 100mg tablet PO SCH (20:18)
[2021-04-14] MEDS: LORazepam 1 MG tablet PO PRN (20:19)
--- NOTE | 2021-04-15 01:12 | NUR ---
Nursing Progress Note: Legal hold: 5250 Client on involuntary status for DTS/GD Report received from Nurse John RN with use of SBAR Why are they here: Pt placed on a 5150 due to DTS/GD. She has a diagnosis of Schizoaffective D/O and per 5150 report pt was found wandering, she was sitting and lying in the middle of the road and was confused and disorganized. She lives in her own home and has [facility] support. Assessment What has happened this shift: Patient was observed sleeping in her room at change of shift. Patient then came out of her room yelling for help. When nurse asked patient what she needed the patient then went on a tangent about not getting enough food. Nurse gave patient a juice and snack and assisted back to room. Nurse then found a pile of juice boxes in the corner of patients room which patient would not let nurse throw away. Patient took all scheduled medications with out issue and was assisted with cleaning up room. Patient got up once in the night shouting again for snacks and was again assisted back to room and into bed. S/I, H/I: Denies A/VH: Denies. Does not appear internally preoccupied. Sleep: see sleep assessment ADL's: Independent Group attendance: No Were Meds Taken: Yes Any med S/E: None observed or reported Mental Status Exam Appearance: Older woman, disheveled hair, wearing green unit scrubs Eye contact: Good, intense at times Behavior: Cooperative, repetitive Speech: Clear Mood: Calm and bouts of anxiety (situational) Affect: Congruent with mood Thought process: Disorganized, situational Thought Content: Wanting to sleep. Meeting needs. Cognition: A&O x4 Insight: Fair Judgment: Fair Interventions PRN's used: N/A Therapeutic interventions: Provided 1:1 assessment with therapeutic conversation and active listening, medication administration/education/monitoring, encouragement to participate on the unit, positive reinforcement, and Q 15 minute safety checks. Restraints/seclusion/emergency medication: None Justification of Continued Inpatient Treatment: Patient requires interruption of current crises, medication adjustment/monitoring, and a safe and supportive environment. At risk r/t pt was found wandering, she was sitting and lying in the middle of the road and was confused and disorganized. Patient continues to be high risk for discharge.
[2021-04-15 08:00] VITALS: BP 104/67
[2021-04-15] MEDS: sennosides 8.6mg tablet PO SCH (08:01)
[2021-04-15] MEDS: naproxen 375mg tablet PO SCH ×3 (08:01→20:50)
[2021-04-15] MEDS: polyethylene glycol 3350 17gm powd pack PO SCH (08:02)
[2021-04-15] MEDS: lithium carbonate 300mg SR tablet (LithoBID) PO SCH ×2 (08:02→20:50)
[2021-04-15] MEDS: docusate sod 100mg capsule PO SCH (08:02)
[2021-04-15] MEDS: levoTHYROXINE 100mcg tablet PO SCH (08:05)
--- NOTE | 2021-04-15 15:04 | NUR ---
Nursing Progress Note: Legal hold: 5250 Client on involuntary status for DTS/GD Report received from Nurse Chinyere Crenshaw RN with use of SBAR Why they are here: Pt placed on a 5150 due to DTS/GD. She has a diagnosis of Schizoaffective D/O and per 5150 report pt was found wandering, she was sitting and lying in the middle of the road and was confused and disorganized. She lives in her own home and has [facility] support. Assessment What has happened this shift: Pt is in good spirits today joking about her inability to have a poop. She is up for all meals and snacks then quickly retreats back to her room and goes to sleep. KUB noted constipation. Abdomen soft, slightly distended, hypoactive bowel sounds x4. Administered Colace, Miralax, and Senokat. Will continue to monitor. Pt self-isolates most of the day. S/I, H/I: Denies A/VH: Denies. Does not appear internally preoccupied. Sleep: Slept throughout the day ADL's: Independent Group attendance: No Were Meds Taken: Yes Any med S/E: None observed or reported Mental Status Exam Appearance: Older woman, disheveled hair, wearing stained green unit scrubs Eye contact: Good, intense at times Behavior: Cooperative, repetitive Speech: Clear Mood: Calm, smiling, and cooperative Affect: Congruent with mood Thought process: Scattered Thought Content: Wanting to sleep. Meeting needs. Cognition: A&O x4 Insight: Fair Judgment: Fair Interventions PRN's used: N/A Therapeutic interventions: Provided 1:1 assessment with therapeutic conversation and active listening, medication administration/education/monitoring, encouragement to participate on the unit, positive reinforcement, and Q 15 minute safety checks. Restraints/seclusion/emergency medication: None Justification of Continued Inpatient Treatment: Patient requires interruption of current crises, medication adjustment/monitoring, and a safe and supportive environment. At risk r/t pt was found wandering, she was sitting and lying in the middle of the road and was confused and disorganized. Patient continues to be high risk for discharge.
[2021-04-15 19:00] VITALS: BP 98/58
[2021-04-15] MEDS: quetiapine 100mg tablet PO SCH (20:51)
--- NOTE | 2021-04-15 23:53 | NUR ---
Nursing Progress Note: Legal hold: 5250 Client on involuntary status for DTS/GD Report received from JOCELYN Lopez with use of SBAR Why they are here: Pt placed on a 5150 due to DTS/GD. She has a diagnosis of Schizoaffective D/O and per 5150 report pt was found wandering, she was sitting and lying in the middle of the road and was confused and disorganized. She lives in her own home and has [facility] support. Assessment What has happened this shift: Patient observed laying in bed at the beginning of shift. Pleasant and cooperative with care; compliant with medication. Patient denies SI, HI, A/VH; does not appear to be responding to IS. Patient received HS snack in her room and promptly retired to bed; observed sleeping and does not appear to be having difficulty. S/I, H/I: Denies A/VH: Denies Sleep: Refer to sleep assessment ADL's: Independent Group attendance: NA Were Meds Taken: Yes Any med S/E: None observed or reported Mental Status Exam Appearance: Disheveled hair, wearing stained green unit scrubs Eye contact: Good, intense at times Behavior: Pleasant and cooperative, isolative Speech: Clear, audible, repetitive Mood: Euthymic Affect: Congruent with mood Thought process: Circumstantial Thought Content: Meeting needs Cognition: A&O x4 Insight: Fair Judgment: Fair Interventions PRN's used: NA Therapeutic interventions: Provided 1:1 assessment with therapeutic conversation and active listening, medication administration/education/monitoring, encouragement to participate on the unit, positive reinforcement, and Q 15 minute safety checks. Restraints/seclusion/emergency medication: None Justification of Continued Inpatient Treatment: Patient requires interruption of current crises, medication adjustment/monitoring, and a safe and supportive environment. At risk r/t pt was found wandering, she was sitting and lying in the middle of the road and was confused and disorganized. Patient continues to be high risk for discharge.
[2021-04-16] MEDS: naproxen 375mg tablet PO SCH ×3 (07:37→20:03)
[2021-04-16] MEDS: sennosides 8.6mg tablet PO SCH (07:37)
[2021-04-16] MEDS: lithium carbonate 300mg SR tablet (LithoBID) PO SCH ×2 (07:37→20:02)
[2021-04-16] MEDS: docusate sod 100mg capsule PO SCH (07:37)
[2021-04-16] MEDS: levoTHYROXINE 100mcg tablet PO SCH (07:37)
[2021-04-16] MEDS: polyethylene glycol 3350 17gm powd pack PO SCH (07:37)
[2021-04-16 07:42] VITALS: BP 108/60
--- NOTE | 2021-04-16 15:17 | NUR ---
Nursing Progress Note: Legal hold: 5250 Client on involuntary status for DTS/GD Report received from nurse, Chinyere Crenshaw RN with use of SBAR Why they are here: Pt placed on a 5150 due to DTS/GD. She has a diagnosis of Schizoaffective D/O and per 5150 report pt was found wandering, she was sitting and lying in the middle of the road and was confused and disorganized. She lives in her own home and has [facility] support. Assessment What has happened this shift: Pt observed sleeping at the beginning of the shift. She slept through breakfast then was up for lunch. Pt self-isolates spending most of the day on her back covered up to her neck on her bed. Pt tearful today fearing that her SS worker quit on her. Pt reports a "small, BM." Again, she was given Miralax, Senokat and Colace. Will continue to monitor. S/I, H/I: Denies A/VH: Denies. Does not appear internally preoccupied. Sleep: Slept throughout the day ADL's: Independent Group attendance: No Were Meds Taken: Yes Any med S/E: None observed or reported Mental Status Exam Appearance: Older woman, disheveled hair, wearing stained green unit scrubs same scrubs as yesterday Eye contact: Good, intense at times Behavior: Cooperative, repetitive Speech: Clear Mood: Calm, cooperative, tearful for a brief time Affect: Congruent with mood Thought process: Scattered Thought Content: Wanting to sleep. Meeting needs. Cognition: A&O x4 Insight: Fair Judgment: Fair Interventions PRN's used: N/A Therapeutic interventions: Provided 1:1 assessment with therapeutic conversation and active listening, medication administration/education/monitoring, encouragement to participate on the unit, positive reinforcement, and Q 15 minute safety checks. Restraints/seclusion/emergency medication: None Justification of Continued Inpatient Treatment: Patient requires interruption of current crises, medication adjustment/monitoring, and a safe and supportive environment. At risk r/t pt was found wandering, she was sitting and lying in the middle of the road and was confused and disorganized. Patient continues to be high risk for discharge.
[2021-04-16 19:56] VITALS: BP 115/67
[2021-04-16] MEDS: quetiapine 100mg tablet PO SCH (20:02)
--- NOTE | 2021-04-17 00:45 | NUR ---
Nursing Progress Note: Legal hold: 5250 Client on involuntary status for DTS/GD Report received from nurse, Raleigh RN with use of SBAR Why they are here: Pt placed on a 5150 due to DTS/GD. She has a diagnosis of Schizoaffective D/O and per 5150 report pt was found wandering, she was sitting and lying in the middle of the road and was confused and disorganized. She lives in her own home and has [facility] support. Assessment What has happened this shift: Patent observed sleeping at the beginning of the shift. Patient got up to go to snack time. Patient took all night medications and walked back to her room. Patient slept through night. S/I, H/I: Denies A/VH: Denies. Sleep: Slept throughout the day ADL's: Independent Group attendance: No Were Meds Taken: Yes Any med S/E: None observed or reported Mental Status Exam Appearance: Older woman, disheveled hair, wearing stained green unit scrubs same scrubs as yesterday Eye contact: Good, intense at times Behavior: Cooperative, repetitive Speech: Clear Mood: cooperative Affect: Congruent with mood Thought process: Scattered Thought Content: Wanting to sleep. Meeting needs. Cognition: A&O x4 Insight: Fair Judgment: Fair Interventions PRN's used: N/A Therapeutic interventions: Provided 1:1 assessment with therapeutic conversation and active listening, medication administration/education/monitoring, encouragement to participate on the unit, positive reinforcement, and Q 15 minute safety checks. Restraints/seclusion/emergency medication: None Justification of Continued Inpatient Treatment: Patient requires interruption of current crises, medication adjustment/monitoring, and a safe and supportive environment. At risk r/t pt was found wandering, she was sitting and lying in the middle of the road and was confused and disorganized. Patient continues to be high risk for discharge.
[2021-04-17 07:51] VITALS: BP 113/65
[2021-04-17] MEDS: docusate sod 100mg capsule PO SCH (08:11)
[2021-04-17] MEDS: sennosides 8.6mg tablet PO SCH (08:11)
[2021-04-17] MEDS: naproxen 375mg tablet PO SCH ×3 (08:12→20:22)
[2021-04-17] MEDS: lithium carbonate 300mg SR tablet (LithoBID) PO SCH ×2 (08:12→20:22)
[2021-04-17] MEDS: polyethylene glycol 3350 17gm powd pack PO SCH (08:12)
[2021-04-17] MEDS: levoTHYROXINE 100mcg tablet PO SCH (08:12)
--- NOTE | 2021-04-17 17:36 | NUR ---
Nursing Progress Note: Heather Gillespie Legal hold: 5250 Client on involuntary status for DTS/GD Report received from nurse, JOCELYN Thibodeaux with use of SBAR Why they are here: Pt placed on a 5150 due to DTS/GD. She has a diagnosis of Schizoaffective D/O and per 5150 report pt was found wandering, she was sitting and lying in the middle of the road and was confused and disorganized. She lives in her own home and has [facility] support. Assessment What has happened this shift: Patient was noted sleeping in bed at shift change. She was awoken to join with peers for breakfast in the community room. Patient endorsed to this senior writer that she is anxious about leaving today. She is complaint with all medications. She retreated back to her room after breakfast. 1:1 assessment completed, lungs CTA. She denies SI/HI, AH or VH. Does not appear to be responding to internal stimuli. She was noted endorsing to staff that she is not ready to go home yet and needs to be around these nurses a couple more days. She approached this senior writer before lunch time noted perseverating on having this senior writer call [facility] despite continuous education and redirection. Patient has tangential/ scattered thought process, noted repeating the same topic over consistently throughout the day. Patient was observed laughing with staff for a brief period of time. She was observed sleeping in her room after lunch. She refused her RTN Naproxen, stating that she doesnt have any pain. She was self-isolative to her room the remainder of the day. She joined in the community room for snack and meal times. S/I, H/I: Denies A/VH: Denies. Does not appear internally preoccupied. Sleep: Slept 9 hours last night per NOC shift, slept intermittently throughout the day ADL's: Independent Group attendance: No group provided today Were Meds Taken: Yes Any med S/E: None observed or reported Mental Status Exam Appearance: Older woman, disheveled hair, dressed in clean green unit scrubs Eye contact: Good, intense at times Behavior: Cooperative, repetitive Speech: Clear Mood: Anxious about leaving Affect: Congruent with mood Thought process: Scattered, Tangential Thought Content: Not ready to go home yet, meeting needs. Cognition: A&O x4 Insight: Fair Judgment: Fair Interventions PRN's used: N/A Therapeutic interventions: Provided 1:1 assessment with therapeutic conversation and active listening, medication administration/education/monitoring, encouragement to participate on the unit, positive reinforcement, and Q 15 minute safety checks. Restraints/seclusion/emergency medication: None Justification of Continued Inpatient Treatment: Patient requires interruption of current crises, medication adjustment/monitoring, and a safe and supportive environment. At risk r/t pt was found wandering, she was sitting and lying in the middle of the road and was confused and disorganized. Patient continues to be high risk for discharge.
[2021-04-17 20:19] VITALS: BP 120/73
[2021-04-17] MEDS: quetiapine 100mg tablet PO SCH (20:22)
--- NOTE | 2021-04-18 02:20 | NUR ---
Nursing Progress Note: Legal hold: 5250 Client on involuntary status for DTS/GD Report received from JOCELYN Lopez with use of SBAR Why they are here: Pt placed on a 5150 due to DTS/GD. She has a diagnosis of Schizoaffective D/O and per 5150 report pt was found wandering, she was sitting and lying in the middle of the road and was confused and disorganized. She lives in her own home and has [facility] support. Assessment What has happened this shift: The patient was observed in her room lying on her bed. She continues to be tangential and disorganized in her speech. She remains cooperative with care and medications. Patient denies all MH symptoms tonight. No evidence of her responding to IS. She has been asleep since receiving HS meds. S/I, H/I: Denies A/VH: Denies Sleep: Refer to sleep assessment ADL's: Independent Group attendance: N/A Were Meds Taken: Yes Any med S/E: None observed or reported Mental Status Exam Appearance: Disheveled hair, wearing stained green unit scrubs Eye contact: Good Behavior: Pleasant and cooperative, isolative, tangential, disorganized Speech: Clear, audible, repetitive Mood: Euthymic Affect: Congruent with mood Thought process: Circumstantial Thought Content: Meeting needs Cognition: A&O x4 Insight: Fair Judgment: Fair Interventions PRN's used: None Therapeutic interventions: Provided 1:1 assessment with therapeutic conversation and active listening, medication administration/education/monitoring, encouragement to participate on the unit, positive reinforcement, and Q 15 minute safety checks. Restraints/seclusion/emergency medication: None Justification of Continued Inpatient Treatment: Patient requires interruption of current crises, medication adjustment/monitoring, and a safe and supportive environment. At risk r/t pt was found wandering, she was sitting and lying in the middle of the road and was confused and disorganized. Patient continues to be high risk for discharge.
[2021-04-18] MEDS: levoTHYROXINE 100mcg tablet PO SCH (07:59)
[2021-04-18] MEDS: lithium carbonate 300mg SR tablet (LithoBID) PO SCH (07:59)
[2021-04-18] MEDS: polyethylene glycol 3350 17gm powd pack PO SCH (07:59)
[2021-04-18] MEDS: naproxen 375mg tablet PO SCH ×2 (07:59→13:00)
[2021-04-18] MEDS: docusate sod 100mg capsule PO SCH (07:59)
[2021-04-18] MEDS: sennosides 8.6mg tablet PO SCH (07:59)
[2021-04-18 08:00] VITALS: BP 110/70
[2021-04-18] MEDS ORDERED: QUET300T20 PO (15:10)
[2021-04-18] MEDS ORDERED: LEVO100T9 PO (15:10)
[2021-04-18] MEDS ORDERED: LIT300C PO (15:10)
[2021-04-18] MEDS ORDERED: DOCU100C40 PO (15:10)
--- NOTE | 2021-04-18 16:55 | NUR ---
Patient discharged from [facility] and escorted from unit at approximately 1613. She was picked up by [facility], provided by the hospital. Discharge instructions received and verbalized understanding. Patients valuables and belongings inventoried and returned to her. Patient is A&O x4, cooperative, no apparent distress or complaints. Patient verbalized understanding of discharge plan, medications, and follow up appointment. She left the hospital without incident.
--- NOTE | 2021-04-18 18:13 | NUR ---
Group Art Tx Continued: Patient attended group art therapy for the first time, on the day of her discharge. She was interactive and participated appropriately in the topic. She expressed appreciation for all the assistance she received while at [facility], especially her interactions with her nurses. *Please refer to the [facility] Case Notes for entire overview. Tatiana Abdi MA, MONEY ROOM TELLER #[id number] [facility], Art Therapist Addendum: 04/18/21 at 1814 by Tatiana Abdi SS Amended: Links added.
== END 2021-04-18 17:00 | disposition home or self-care (01) | DRG 885 ==
LOC: ER 15:24 → ADULT MH 04-03 21:15
PROVIDERS: ADMIT Psychiatry & Neurology Psychiatry; ATTEND Psychiatry & Neurology Psychiatry
DX: F25.9 Schizoaffective disorder, unspecified (principal); R45.851 Suicidal ideations; D64.9 Anemia, unspecified; E03.9 Hypothyroidism, unspecified; F17.210 Nicotine dependence, cigarettes, uncomplicated; I10 Essential (primary) hypertension; F12.90 Cannabis use, unspecified, uncomplicated; F32.A Depression, unspecified; M17.10 Unilateral primary osteoarthritis, unspecified knee; Z20.822 Contact with and (suspected) exposure to COVID-19; E66.3 Overweight; K59.00 Constipation, unspecified; M19.019 Primary osteoarthritis, unspecified shoulder; F41.9 Anxiety disorder, unspecified; G89.29 Other chronic pain; M19.90 Unspecified osteoarthritis, unspecified site; R79.89 Other specified abnormal findings of blood chemistry; Z79.890 Hormone replacement therapy; Z81.8 Family history of other mental and behavioral disorders; Z86.73 Personal history of transient ischemic attack (TIA), and cerebral infarction without residual deficits; Z68.26 Body mass index [BMI] 26.0-26.9, adult; Z79.899 Other long term (current) drug therapy
CPT/HCPCS: 36415; 71045; 74018; 80048; 80053; 80061; 80178; 80305; 80320; 81001; 81025; 83036; 83880; 84484; 85025; 87081; 87635; 93005; 96372; 99285; C9803; J1200; J1630; Q0163

== ENCOUNTER 2021-09-20 14:26 | Emergency (ER) | payer MEDICARE, MEDICAID ==
[~2021-09-20] VITALS: Ht 162.6 cm; Wt 75.0 kg
[~2021-09-20 14:26] MED LIST changes: -ACET-1133 PO; -LEVO100T PO; +LEVO100T9 PO; +LIT300C PO; -LITH300T3 PO; -MELO-102 PO; +NAPR375T5 PO; -PALI234D IM; -PROP20TA6 PO; +QUET300T20 PO; -TEMA30CA5 PO; -TRAZ150T78 PO
[2021-09-20 14:39] VITALS: BP 113/74
[2021-09-20] MEDS: acetaminophen 325mg tablet PO ONE (15:51)
== END 2021-09-20 16:06 | disposition home or self-care (01) ==
LOC: ER 14:27
DX: M79.601 Pain in right arm (principal); I10 Essential (primary) hypertension; G89.29 Other chronic pain; F41.9 Anxiety disorder, unspecified; F32.A Depression, unspecified; F20.9 Schizophrenia, unspecified; F12.90 Cannabis use, unspecified, uncomplicated; F15.90 Other stimulant use, unspecified, uncomplicated; F11.90 Opioid use, unspecified, uncomplicated; Z86.73 Personal history of transient ischemic attack (TIA), and cerebral infarction without residual deficits; Z86.69 Personal history of other diseases of the nervous system and sense organs; Z98.890 Other specified postprocedural states; Z72.89 Other problems related to lifestyle; Z79.899 Other long term (current) drug therapy
CPT/HCPCS: 73030; 99283

== ENCOUNTER 2022-03-20 15:48 | Emergency (ER) | payer MEDICARE, MEDICAID ==
[~2022-03-20] VITALS: Ht 172.7 cm; Wt 109.1 kg
[~2022-03-20 15:48] MED LIST changes: +BENZ2TAB7 PO; +CHLO100T16 PO; -DICL100G30 TOP; +DIVA250T8 PO; +FERR-119 PO; +LEVO100C4 PO; -LEVO100T9 PO; +MELO-102 PO; -NAPR375T5 PO; +PALI234D IM; +PROP20TA6 PO; -QUET300T20 PO; +ROPI0.5T4 PO; +ROPI1TAB6 PO; +TEMA15CA5 PO
[2022-03-20 16:30] VITALS: BP 90/67
--- NOTE | 2022-03-20 16:46 | NUR ---
CALL PTS JEWEL BEARING POLISHER HEATH FOR UPDATES OR ANY QUESTIONS [phone]
[2022-03-20 17:19] LABS: BASOPHILS % (AUTO) 0.2 % (0-1); EOSINOPHILS % (AUTO) 0.5 % (0-6); HEMATOCRIT 32.7 % (35.0-45.0); HEMOGLOBIN 11.1 g/dl (12.0-16.0); LYMPHOCYTES # (AUTO) 1.3 X10'3 (1.1-4.8); LYMPHOCYTES % (AUTO) 29.3 % (21-51); MEAN CORPUSCULAR HEMOGLOBIN 31.2 PG (27.0-31.0); MEAN CORPUSCULAR HGB CONC 33.8 g/dL (33.0-36.5); MEAN CORPUSCULAR VOLUME 92.1 FL (78-98); MEAN PLATELET VOLUME 6.9 FL (7.4-10.4); MONOCYTES # (AUTO) 0.5 X10'3 (0-0.9); MONOCYTES % (AUTO) 10.4 % (2-12); NEUTROPHILS # (AUTO) 2.7 X10'3 (1.8-7.7); NEUTROPHILS % (AUTO) 59.6 % (42-75); PLATELET COUNT 283 X10'3 (140-440); RED BLOOD COUNT 3.55 X10'6 (4.20-5.60); RED CELL DISTRIBUTION WIDTH 13.8 % (11.5-14.5); WHITE BLOOD COUNT 4.6 X10'3 (4.5-11.0)
--- NOTE | 2022-03-20 17:25 | NUR ---
ANTHONY (JOCELYN) [facility] [phone] FOR ANY MED QUESTIONS
[2022-03-20 17:27] LABS: ALANINE AMINOTRANSFERASE 17 U/L (12-78); ALBUMIN 3.2 G/DL (3.4-5.0); ALBUMIN/GLOBULIN RATIO 0.8 (1.1-1.5); ALKALINE PHOSPHATASE 52 IU/L (46-116); ANION GAP 2 (8-16); ASPARTATE AMINO TRANSFERASE 17 U/L (10-37); BILIRUBIN,TOTAL 0.2 MG/DL (0.1-1.0); BLOOD UREA NITROGEN 32 MG/DL (7-18); BUN/CREATININE RATIO 18.8 (6.6-38.0); CALCIUM 8.9 MG/DL (8.5-10.1); CHLORIDE 105 MMOL/L (99-107); GLUCOSE 90 MG/DL (70-104); POTASSIUM 4.9 MMOL/L (3.5-5.1); SODIUM 139 MMOL/L (135-145); TOTAL CARBON DIOXIDE 31.9 MMOL/L (24-32); eGFR 31 ML/MIN
== END 2022-03-20 22:02 | disposition left against medical advice (07) ==
LOC: ER 15:49
DX: R41.0 Disorientation, unspecified (principal); Z53.21 Procedure and treatment not carried out due to patient leaving prior to being seen by health care provider
CPT/HCPCS: 36415; 80053; 85025

== ENCOUNTER 2022-06-13 09:09 | Emergency (ER) | payer MEDICARE, MEDICAID ==
[~2022-06-13] VITALS: Ht 162.6 cm; Wt 85.8 kg
[~2022-06-13 09:09] MED LIST changes: +ARIP400S3 IM; +BENZ1TAB7 PO; -BENZ2TAB7 PO; -CHLO100T16 PO; -DIVA250T8 PO; +DIVA500T9 PO; -DOCU100C40 PO; -FERR-119 PO; -LEVO100C4 PO; -LIT300C PO; -MELO-102 PO; +OLAN10TA73 PO; -PROP20TA6 PO; -ROPI1TAB6 PO; -SENN-263 PO; +TEMA15CA PO; -TEMA15CA5 PO; +TRAZ150T78 PO
[2022-06-13] MEDS ORDERED: normal saline 1000ML IV soln IV ONE (09:45)
[2022-06-13] MEDS ORDERED: CefTRIAXone 2gm/D5W 50ml BAG 50 ML IV ONE (09:45)
[2022-06-13 10:27] LABS: BASOPHILS % (AUTO) 0.2 % (0-1); EOSINOPHILS % (AUTO) 0.7 % (0-6); HEMATOCRIT 30.3 % (35.0-45.0); HEMOGLOBIN 9.8 g/dl (12.0-16.0); LYMPHOCYTES % (AUTO) 30.1 % (21-51); MEAN CORPUSCULAR HGB CONC 32.4 g/dL (33.0-36.5); MEAN CORPUSCULAR VOLUME 95.5 FL (78-98); MEAN PLATELET VOLUME 6.6 FL (7.4-10.4); MONOCYTES # (AUTO) 0.4 X10'3 (0-0.9); MONOCYTES % (AUTO) 11.8 % (2-12); NEUTROPHILS % (AUTO) 57.2 % (42-75); PLATELET COUNT 233 X10'3 (140-440); RED BLOOD COUNT 3.17 X10'6 (4.20-5.60); RED CELL DISTRIBUTION WIDTH 15.3 % (11.5-14.5); WHITE BLOOD COUNT 3.5 X10'3 (4.5-11.0)
[2022-06-13 10:44] LABS: ALANINE AMINOTRANSFERASE 18 U/L (12-78); ALBUMIN 2.6 G/DL (3.4-5.0); ALBUMIN/GLOBULIN RATIO 0.6 (1.1-1.5); ALKALINE PHOSPHATASE 71 IU/L (46-116); ANION GAP 6 (8-16); BILIRUBIN,TOTAL 0.2 MG/DL (0.1-1.0); BLOOD UREA NITROGEN 13 MG/DL (7-18); BUN/CREATININE RATIO 14.4 (6.6-38.0); CALCIUM 8.9 MG/DL (8.5-10.1); CHLORIDE 104 MMOL/L (99-107); GLUCOSE 83 MG/DL (70-104); SODIUM 137 MMOL/L (135-145); TOTAL CARBON DIOXIDE 26.9 MMOL/L (24-32); TOTAL PROTEIN 6.8 G/DL (6.4-8.2); eGFR 64 ML/MIN
[2022-06-13 10:45] LABS: ASPARTATE AMINO TRANSFERASE 57 U/L (10-37); POTASSIUM 4.1 MMOL/L (3.5-5.1)
[2022-06-13 12:01] LABS: CLARITY,URINE CLEAR (Clear); COLOR,URINE YELLOW (Yellow); GLUCOSE, URINE NEGATIVE (Neg); KETONES,URINE 15 mg/dl (Neg); LEUKOCYTE ESTERASE ,URINE NEGATIVE (Neg); NITRITES, URINE NEGATIVE (Neg); OCCULT BLOOD,URINE NEGATIVE (Neg); PROTEIN,URINE NEGATIVE (Neg); UROBILINOGEN,URINE 0.2 E.U/dL (0.2-1.0)
[2022-06-13 12:02] LABS: UA COLLECTION TYPE OTHER
[2022-06-13 13:55] VITALS: BP 143/79
== END 2022-06-13 13:57 | disposition home or self-care (01) ==
LOC: ER 09:10
DX: T40.691A Poisoning by other narcotics, accidental (unintentional), initial encounter (principal); R41.82 Altered mental status, unspecified; F12.10 Cannabis abuse, uncomplicated; F15.10 Other stimulant abuse, uncomplicated; Q28.8 Other specified congenital malformations of circulatory system; I11.9 Hypertensive heart disease without heart failure; F20.9 Schizophrenia, unspecified; F31.9 Bipolar disorder, unspecified; Z79.899 Other long term (current) drug therapy; Y92.89 Other specified places as the place of occurrence of the external cause
CPT/HCPCS: 36415; 70450; 71045; 80053; 81003; 83605; 84145; 85025; 87040; 93005; 96365; 99285; J0696; J7030; A4353

== ENCOUNTER 2023-03-27 22:49 | Emergency (ER) | payer MEDICARE, MEDICAID ==
[~2023-03-27] VITALS: Ht 162.6 cm; Wt 127.3 kg
[~2023-03-27 22:49] MED LIST changes: -ARIP400S3 IM; -BENZ1TAB7 PO; +BENZ1TAB93 PO; -DIVA500T9 PO; +DOCU100C40 PO; +NICO-687 TD; -OLAN10TA73 PO; -PALI234D IM; +PROP20TA6 PO; +QUET300T2 PO; -ROPI0.5T4 PO; +SYN0.088T PO; -TEMA15CA PO; +TRAZ-251 PO; -TRAZ150T78 PO
[2023-03-27 23:02] VITALS: TEMP 98.3
[2023-03-28 03:16] LABS: BASOPHILS % (AUTO) 0.3 % (0-1); EOSINOPHILS % (AUTO) 0.6 % (0-6); HEMATOCRIT 29.7 % (35.0-45.0); HEMOGLOBIN 9.7 g/dl (12.0-16.0); LYMPHOCYTES # (AUTO) 1.7 X10'3 (1.1-4.8); LYMPHOCYTES % (AUTO) 22.5 % (21-51); MEAN CORPUSCULAR HEMOGLOBIN 32.8 PG (27.0-31.0); MEAN CORPUSCULAR HGB CONC 32.8 g/dL (33.0-36.5); MEAN CORPUSCULAR VOLUME 100.2 FL (78-98); MONOCYTES # (AUTO) 0.7 X10'3 (0-0.9); MONOCYTES % (AUTO) 9.6 % (2-12); NEUTROPHILS # (AUTO) 4.9 X10'3 (1.8-7.7); PLATELET COUNT 345 X10'3 (140-440); RED BLOOD COUNT 2.97 X10'6 (4.20-5.60); RED CELL DISTRIBUTION WIDTH 14.1 % (11.5-14.5); WHITE BLOOD COUNT 7.4 X10'3 (4.5-11.0)
[2023-03-28 03:27] LABS: ALANINE AMINOTRANSFERASE 27 U/L (12-78); ALBUMIN 2.3 G/DL (3.4-5.0); ALBUMIN/GLOBULIN RATIO 0.5 (1.1-1.5); ALKALINE PHOSPHATASE 61 IU/L (46-116); ANION GAP 3 (8-16); ASPARTATE AMINO TRANSFERASE 22 U/L (10-37); BILIRUBIN,TOTAL 0.2 MG/DL (0.1-1.0); BLOOD UREA NITROGEN 14 MG/DL (7-18); BUN/CREATININE RATIO 14.4 (10.0-20.0); CALCIUM 8.5 MG/DL (8.5-10.1); CHLORIDE 107 MMOL/L (99-107); CREATININE 0.97 MG/DL (0.40-0.90); GLUCOSE 99 MG/DL (70-104); POTASSIUM 3.7 MMOL/L (3.5-5.1); SODIUM 142 MMOL/L (135-145); TOTAL CARBON DIOXIDE 31.9 MMOL/L (24-32); TOTAL PROTEIN 6.7 G/DL (6.4-8.2); eCRCL 52 ML/MIN; eGFR 58 ML/MIN
[2023-03-28 03:30] LABS: MAGNESIUM 2.2 MG/DL (1.5-2.4)
[2023-03-28 03:34] LABS: BILIRUBIN,URINE NEGATIVE (Neg); CLARITY,URINE SLIGHTLY CLOUDY (Clear); COLOR,URINE YELLOW (Yellow); GLUCOSE, URINE NEGATIVE (Neg); KETONES,URINE NEGATIVE (Neg); LEUKOCYTE ESTERASE ,URINE NEGATIVE (Neg); NITRITES, URINE NEGATIVE (Neg); OCCULT BLOOD,URINE NEGATIVE (Neg); PROTEIN,URINE NEGATIVE (Neg); UROBILINOGEN,URINE 0.2 E.U/dL (0.2-1.0)
[2023-03-28 03:45] LABS: UA COLLECTION TYPE VOIDED
[2023-03-28 03:49] LABS: BACTERIA,URINE 1+ /HPF (Neg); MUCUS STRANDS MANY /LPF (Neg); SQUAMOUS EPITHELIAL CELL,UR MODERATE /LPF (FEW)
[2023-03-28 03:51] LABS: RBC,URINE 0-2 /HPF (0-2)
[2023-03-28 04:15] LABS: TOTAL CELLS COUNTED 100
[2023-03-28 04:16] LABS: PLATELET ESTIMATE NORMAL
[2023-03-28 04:18] LABS: ELLIPTOCYTES FEW
[2023-03-28 04:20] LABS: ANISOCYTOSIS 1+; TEAR DROP CELLS FEW
[2023-03-28 04:21] LABS: POLYCHROMASIA FEW
--- NOTE | 2023-03-28 04:49 | NUR ---
UNABLE TO CONTACT FAMILY NOR PACKING MACHINE INSPECTOR FOR TRANSPORT HOME, LEFT MESSAGES AT BOTH NUMBERS
[2023-03-28 05:30] VITALS: BP 122/72; PULSE 94; RESP 16; O2SAT 98
== END 2023-03-28 05:32 | disposition home or self-care (01) ==
LOC: ER 22:50
DX: S00.83XA Contusion of other part of head, initial encounter (principal); X58.XXXA Exposure to other specified factors, initial encounter; Y93.89 Activity, other specified; Y92.89 Other specified places as the place of occurrence of the external cause; Y99.8 Other external cause status
CPT/HCPCS: 36415; 70450; 70486; 71045; 72125; 80053; 81001; 83735; 84145; 84484; 85007; 85025; 87088; 93005; 99285

== ENCOUNTER 2023-04-08 13:11 | Emergency (ER) | payer MEDICARE, MEDICAID ==
[~2023-04-08] VITALS: Ht 167.6 cm; Wt 100.0 kg
[2023-04-08 14:02] LABS: BASOPHILS % (AUTO) 0.2 % (0-1); EOSINOPHILS % (AUTO) 0 % (0-6); HEMATOCRIT 28.7 % (35.0-45.0); HEMOGLOBIN 9.7 g/dl (12.0-16.0); LYMPHOCYTES # (AUTO) 1.2 X10'3 (1.1-4.8); LYMPHOCYTES % (AUTO) 16.2 % (21-51); MEAN CORPUSCULAR HEMOGLOBIN 33.1 PG (27.0-31.0); MEAN CORPUSCULAR HGB CONC 33.7 g/dL (33.0-36.5); MEAN CORPUSCULAR VOLUME 98.3 FL (78-98); MEAN PLATELET VOLUME 7.1 FL (7.4-10.4); MONOCYTES # (AUTO) 1.1 X10'3 (0-0.9); MONOCYTES % (AUTO) 16.1 % (2-12); NEUTROPHILS # (AUTO) 4.8 X10'3 (1.8-7.7); NEUTROPHILS % (AUTO) 67.5 % (42-75); PLATELET COUNT 264 X10'3 (140-440); RED BLOOD COUNT 2.92 X10'6 (4.20-5.60); RED CELL DISTRIBUTION WIDTH 14.6 % (11.5-14.5); WHITE BLOOD COUNT 7.1 X10'3 (4.5-11.0)
[2023-04-08 14:10] LABS: ALANINE AMINOTRANSFERASE 14 U/L (12-78); ALBUMIN 2.7 G/DL (3.4-5.0); ALBUMIN/GLOBULIN RATIO 0.6 (1.1-1.5); ALKALINE PHOSPHATASE 61 IU/L (46-116); ANION GAP 8 (8-16); ASPARTATE AMINO TRANSFERASE 13 U/L (10-37); BILIRUBIN,TOTAL 0.4 MG/DL (0.1-1.0); BLOOD UREA NITROGEN 22 MG/DL (7-18); BUN/CREATININE RATIO 14.5 (10.0-20.0); CALCIUM 8.7 MG/DL (8.5-10.1); CHLORIDE 101 MMOL/L (99-107); CREATININE 1.52 MG/DL (0.40-0.90); GLUCOSE 130 MG/DL (70-104); POTASSIUM 3.9 MMOL/L (3.5-5.1); SODIUM 136 MMOL/L (135-145); TOTAL CARBON DIOXIDE 27.3 MMOL/L (24-32); TOTAL PROTEIN 7.2 G/DL (6.4-8.2); eCRCL 36 ML/MIN; eGFR 35 ML/MIN
[2023-04-08 14:20] LABS: LIPASE 24 U/L (16-77)
[2023-04-08 14:30] LABS: PLATELET ESTIMATE NORMAL; SMUDGE CELLS FEW; STOMATOCYTES FEW; TEAR DROP CELLS FEW; TOTAL CELLS COUNTED 100
[2023-04-08 16:05] VITALS: TEMP 98.3
--- NOTE | 2023-04-08 16:30 | NUR ---
Heather lives with a investigation clerk, Mari. Mari's phone number Mari and Heather receive in home services as well. The patient case manager for Heather at [facility] is Yanelis Wang. Yanelis's cell is :[phone]
[2023-04-08] MEDS ORDERED: CefTRIAXone 2gm/D5W 50ml BAG 50 ML IV ONE (17:25)
[2023-04-08] MEDS ORDERED: normal saline 1000ml 1,000 ML IV ONE (17:25)
[2023-04-08 17:36] LABS: BILIRUBIN,URINE SMALL (Neg); CLARITY,URINE CLOUDY (Clear); COLOR,URINE YELLOW (Yellow); GLUCOSE, URINE NEGATIVE (Neg); KETONES,URINE TRACE mg/dl (Neg); LEUKOCYTE ESTERASE ,URINE NEGATIVE (Neg); NITRITES, URINE NEGATIVE (Neg); OCCULT BLOOD,URINE TRACE-INTACT (Neg); PROTEIN,URINE TRACE mg/dl (Neg)
[2023-04-08 17:39] LABS: UA COLLECTION TYPE CLN CATCH MIDSTREAM
[2023-04-08 17:51] LABS: BACTERIA,URINE 1+ /HPF (Neg); MUCUS STRANDS MANY /LPF (Neg); SQUAMOUS EPITHELIAL CELL,UR MANY /LPF (FEW)
[2023-04-08] MEDS ORDERED: CEPH-585 PO (18:39)
[2023-04-08] MEDS ORDERED: CefTRIAXone 1000mg IM Kit (w/lidocaine diluent) IM ONE (19:15)
--- NOTE | 2023-04-08 19:18 | NUR ---
unable to obtain IV access. multiple attempts on day shift & noc shift w ultrasound. aware, abx chagned from IV to IM.
[2023-04-08 19:45] VITALS: BP 127/98; PULSE 109; RESP 18; O2SAT 100
== END 2023-04-08 19:49 | disposition home or self-care (01) ==
LOC: ER 13:12
DX: N39.0 Urinary tract infection, site not specified (principal); I10 Essential (primary) hypertension; F32.A Depression, unspecified; F17.210 Nicotine dependence, cigarettes, uncomplicated; F12.10 Cannabis abuse, uncomplicated; F15.10 Other stimulant abuse, uncomplicated
CPT/HCPCS: 80053; 81001; 83690; 85007; 85025; 96372; 99283; J0696; J7030

== ENCOUNTER 2023-05-06 13:44 | Observation (INO) | payer MEDICARE, MEDICAID ==
[~2023-05-06] VITALS: Ht 162.6 cm; Wt 109.1 kg
[~2023-05-06 13:44] MED LIST changes: +CEPH-585 PO
[2023-05-06 15:47] LABS: BASOPHILS % (AUTO) 0.2 % (0-1); EOSINOPHILS % (AUTO) 0.3 % (0-6); HEMATOCRIT 31.9 % (35.0-45.0); HEMOGLOBIN 10.5 g/dl (12.0-16.0); LYMPHOCYTES % (AUTO) 13.9 % (21-51); MEAN CORPUSCULAR HEMOGLOBIN 32.8 PG (27.0-31.0); MEAN CORPUSCULAR VOLUME 99.2 FL (78-98); MEAN PLATELET VOLUME 6.9 FL (7.4-10.4); MONOCYTES # (AUTO) 0.7 X10'3 (0-0.9); MONOCYTES % (AUTO) 10.1 % (2-12); NEUTROPHILS # (AUTO) 5.4 X10'3 (1.8-7.7); NEUTROPHILS % (AUTO) 75.5 % (42-75); PLATELET COUNT 213 X10'3 (140-440); RED BLOOD COUNT 3.21 X10'6 (4.20-5.60); WHITE BLOOD COUNT 7.2 X10'3 (4.5-11.0)
[2023-05-06 16:09] LABS: APTT 25 SECONDS (22-32); PROTHROMBIN TIME 10.5 SECONDS (9.0-12.0)
[2023-05-06 16:17] LABS: BILIRUBIN,URINE SMALL (Neg); CLARITY,URINE SLIGHTLY CLOUDY (Clear); COLOR,URINE YELLOW (Yellow); GLUCOSE, URINE NEGATIVE (Neg); KETONES,URINE TRACE mg/dl (Neg); LEUKOCYTE ESTERASE ,URINE NEGATIVE (Neg); NITRITES, URINE NEGATIVE (Neg); OCCULT BLOOD,URINE NEGATIVE (Neg); PROTEIN,URINE TRACE mg/dl (Neg); UROBILINOGEN,URINE 0.2 E.U/dL (0.2-1.0)
[2023-05-06 16:27] LABS: UA COLLECTION TYPE STRAIGHT CATH
[2023-05-06 16:28] LABS: MUCUS STRANDS MANY /LPF (Neg); SQUAMOUS EPITHELIAL CELL,UR MODERATE /LPF (FEW)
[2023-05-06 16:29] LABS: HYALINE CASTS >30 /LPF (NEGATIVE)
[2023-05-06 16:30] LABS: BACTERIA,URINE 2+ /HPF (Neg); WBC,URINE 0-4 /HPF (0-4)
[2023-05-06 16:31] LABS: CAL OXALATE CRYSTALS 1+ /HPF (NEGATIVE); RBC,URINE 0-2 /HPF (0-2); TRANSITIONAL EPI CELLS,URINE FEW /HPF
[2023-05-06 16:32] LABS: ALANINE AMINOTRANSFERASE 8 U/L (12-78); ALBUMIN 3.3 G/DL (3.4-5.0); ALBUMIN/GLOBULIN RATIO 0.8 (1.1-1.5); ALKALINE PHOSPHATASE 58 IU/L (46-116); ANION GAP 9 (8-16); ASPARTATE AMINO TRANSFERASE 13 U/L (10-37); BILIRUBIN,TOTAL 0.3 MG/DL (0.1-1.0); BLOOD UREA NITROGEN 19 MG/DL (7-18); BUN/CREATININE RATIO 11.1 (10.0-20.0); CHLORIDE 101 MMOL/L (99-107); CREATININE 1.71 MG/DL (0.40-0.90); GLUCOSE 100 MG/DL (70-104); POTASSIUM 4.3 MMOL/L (3.5-5.1); SODIUM 138 MMOL/L (135-145); TOTAL CARBON DIOXIDE 28.4 MMOL/L (24-32); TOTAL PROTEIN 7.3 G/DL (6.4-8.2); eCRCL 29 ML/MIN; eGFR 30 ML/MIN
[2023-05-06 16:38] LABS: NUCLEATED RED BLOOD CELLS 1 /100WBC (0-0); TOTAL CELLS COUNTED 100
[2023-05-06 16:39] LABS: PLATELET ESTIMATE NORMAL; STOMATOCYTES FEW; TEAR DROP CELLS FEW
[2023-05-06] MEDS ORDERED: CefTRIAXone/D5W-Rocephin 1gm 50 ML IV ONE (16:50)
[2023-05-06] MEDS ORDERED: magnesium 2GM in 50ml NS 50 ML IV PRN (17:55)
[2023-05-06] MEDS ORDERED: magnesium 4gm in 100ml NS 100 ML IV PRN (17:55)
[2023-05-06] MEDS: normal saline 1000ml 1,000 ML IV SCH (17:55)
[2023-05-06] MEDS ORDERED: ondansetron/PF 4mg/2ml inj IV PRN (17:55)
[2023-05-06] MEDS ORDERED: potassium Cl 20 mEq SR tablet PO PRN ×2 (17:55)
[2023-05-06] MEDS ORDERED: potassium Cl 40MEQ/1/2NS 520ml 520 ML IV PRN (17:55)
[2023-05-06] MEDS ORDERED: magnesium Cl slow-release 64mg tablet PO PRN (17:55)
[2023-05-06] MEDS ORDERED: acetaminophen 325mg tablet PO PRN (17:55)
--- NOTE | 2023-05-06 18:05 | NUR ---
SPOKE TO PT'S CAREGIVER, TIKA BURGOS, TO PROVIDE PT UPDATES. AGATE SETTER GAVE NUMBER OF PT ANIMAL HUSBANDRY TEACHER, . GOT INFORMATION FOR MRI SCREENING FORM, HOWEVER TIKA DOES NOT HAVE AUTHORITY TO PROVIDE TELEPHONE CONSENT. DAYSHIFT TO CALL ANIMAL HUSBANDRY TEACHER IN THE MORNING FOR CONSENT.
[2023-05-06 18:16] LABS: C-REACTIVE PROTEIN 1.97 MG/DL (0.0-0.5)
[2023-05-06] MEDS ORDERED: enoxaparin 40mg/0.4ml syringe SQ SCH (20:00)
[2023-05-06] MEDS ORDERED: temazepam 15mg capsule PO PRN (21:00)
--- NOTE | 2023-05-07 00:32 | NUR ---
PT REMOVED WELL SECURED IV ,500ML NACL INFUSED
--- NOTE | 2023-05-07 01:23 | NUR ---
REPORT CALLED TO FLOOR RN PT TX TO ROOM [id number] BY TECH
[2023-05-07 01:35] VITALS: BP 122/69; RESP 16; TEMP 97.6; O2SAT 91
[2023-05-07] MEDS: normal saline 1000ml 1,000 ML IV SCH (02:34)
[2023-05-07 06:13] LABS: BASOPHILS % (AUTO) 0.1 % (0-1); EOSINOPHILS % (AUTO) 0.6 % (0-6); HEMATOCRIT 28.8 % (35.0-45.0); HEMOGLOBIN 9.5 g/dl (12.0-16.0); LYMPHOCYTES # (AUTO) 1.1 X10'3 (1.1-4.8); LYMPHOCYTES % (AUTO) 21.1 % (21-51); MEAN CORPUSCULAR HEMOGLOBIN 32.6 PG (27.0-31.0); MEAN CORPUSCULAR VOLUME 98.7 FL (78-98); MEAN PLATELET VOLUME 7.1 FL (7.4-10.4); MONOCYTES # (AUTO) 0.5 X10'3 (0-0.9); MONOCYTES % (AUTO) 9.4 % (2-12); NEUTROPHILS # (AUTO) 3.6 X10'3 (1.8-7.7); NEUTROPHILS % (AUTO) 68.8 % (42-75); PLATELET COUNT 185 X10'3 (140-440); RED BLOOD COUNT 2.91 X10'6 (4.20-5.60); WHITE BLOOD COUNT 5.2 X10'3 (4.5-11.0)
[2023-05-07 06:29] LABS: ALBUMIN 2.7 G/DL (3.4-5.0); ALBUMIN/GLOBULIN RATIO 0.8 (1.1-1.5); ALKALINE PHOSPHATASE 51 IU/L (46-116); ANION GAP 6 (8-16); ASPARTATE AMINO TRANSFERASE 12 U/L (10-37); BILIRUBIN,TOTAL 0.3 MG/DL (0.1-1.0); BLOOD UREA NITROGEN 20 MG/DL (7-18); BUN/CREATININE RATIO 15.6 (10.0-20.0); CALCIUM 8.8 MG/DL (8.5-10.1); CHLORIDE 104 MMOL/L (99-107); CREATININE 1.28 MG/DL (0.40-0.90); GLUCOSE 89 MG/DL (70-104); POTASSIUM 3.9 MMOL/L (3.5-5.1); SODIUM 139 MMOL/L (135-145); TOTAL CARBON DIOXIDE 28.6 MMOL/L (24-32); TOTAL PROTEIN 6.3 G/DL (6.4-8.2); eCRCL 39 ML/MIN; eGFR 42 ML/MIN
[2023-05-07 06:30] LABS: ALANINE AMINOTRANSFERASE < 6 U/L (12-78)
--- NOTE | 2023-05-07 06:30 | NUR ---
received patient report from September RN. assumed care of patient. will continue to monitor.
[2023-05-07 07:12] LABS: ANISOCYTOSIS 1+; PLATELET ESTIMATE NORMAL; TOTAL CELLS COUNTED 100
[2023-05-07 07:13] LABS: TEAR DROP CELLS FEW
[2023-05-07] MEDS: acetaminophen 325mg tablet PO SCH ×2 (07:34)
[2023-05-07 08:00] VITALS: BP 111/78; PULSE 100; RESP 15; TEMP 98.1; O2SAT 96
--- NOTE | 2023-05-07 13:00 | NUR ---
PLISSE MACHINE OPERATOR HELPER documentation: I have reviewed and agree with all interventions, assessments performed and documented by YI Carlos.
--- NOTE | 2023-05-07 13:24 | NUR ---
patient discharge completed but unable to get ahold of patients certified caregiver Celestino. Unable to leave VM due to patients VM being full. Patient alert with confusion. PT evaluated and cleared patient to go home. one person assist with transfers.
--- NOTE | 2023-05-07 17:24 | NUR ---
Patient discharged home with yanelis garza from [facility]. Patient IV removed. Vitals stable. one person assist with transfers and continent of bowel and bladder. Patient belongings left at bedside. Yanelis will pickle water pump operator belongings on 4th floor. Patients information and caretakers card is stapled onto belongings. All medications left with patient. All other belongings and paper work signed and left with care manager cna.
== END 2023-05-07 16:05 | disposition home or self-care (01) ==
LOC: ER 13:45 → ED HOLD 17:42 → INTOOBSV 17:42 → ORTHO 4S 05-07 01:34
PROVIDERS: ADMIT Internal Medicine; ATTEND Internal Medicine
DX: R41.82 Altered mental status, unspecified (principal); I12.9 Hypertensive chronic kidney disease with stage 1 through stage 4 chronic kidney disease, or unspecified chronic kidney disease; N18.30 Chronic kidney disease, stage 3 unspecified; N39.0 Urinary tract infection, site not specified; M19.012 Primary osteoarthritis, left shoulder; F25.9 Schizoaffective disorder, unspecified; F03.90 Unspecified dementia, unspecified severity, without behavioral disturbance, psychotic disturbance, mood disturbance, and anxiety; F41.8 Other specified anxiety disorders; Z86.73 Personal history of transient ischemic attack (TIA), and cerebral infarction without residual deficits; Z79.899 Other long term (current) drug therapy
CPT/HCPCS: 36415; 70450; 71045; 80053; 81001; 82948; 83605; 84145; 84484; 85007; 85025; 85610; 85651; 85730; 86140; 87040; 87081; 96360; 96361; 96372; 97161; 97530; 99291; G0378; J1650; J7030; 74177; 99285

== ENCOUNTER 2023-05-16 12:53 | Inpatient (IN) | payer MEDICARE, MEDICAID ==
[~2023-05-16] VITALS: Ht 162.6 cm; Wt 109.1 kg
[~2023-05-16 12:53] MED LIST changes: -CEPH-585 PO
[2023-05-16 13:20] LABS: BASOPHILS % (AUTO) 0.3 % (0-1); EOSINOPHILS % (AUTO) 0 % (0-6); HEMATOCRIT 30.6 % (35.0-45.0); HEMOGLOBIN 10.2 g/dl (12.0-16.0); LYMPHOCYTES # (AUTO) 0.7 X10'3 (1.1-4.8); LYMPHOCYTES % (AUTO) 9.6 % (21-51); MEAN CORPUSCULAR HEMOGLOBIN 32.9 PG (27.0-31.0); MEAN CORPUSCULAR HGB CONC 33.3 g/dL (33.0-36.5); MEAN CORPUSCULAR VOLUME 98.8 FL (78-98); MEAN PLATELET VOLUME 6.8 FL (7.4-10.4); MONOCYTES # (AUTO) 1.5 X10'3 (0-0.9); MONOCYTES % (AUTO) 21.4 % (2-12); NEUTROPHILS % (AUTO) 68.7 % (42-75); PLATELET COUNT 302 X10'3 (140-440); RED BLOOD COUNT 3.09 X10'6 (4.20-5.60); RED CELL DISTRIBUTION WIDTH 16.5 % (11.5-14.5); WHITE BLOOD COUNT 7.2 X10'3 (4.5-11.0)
[2023-05-16 13:35] LABS: ANION GAP 7 (8-16); BLOOD UREA NITROGEN 19 MG/DL (7-18); BUN/CREATININE RATIO 11.8 (10.0-20.0); CHLORIDE 102 MMOL/L (99-107); CREATININE 1.61 MG/DL (0.40-0.90); GLUCOSE 110 MG/DL (70-104); POTASSIUM 4.2 MMOL/L (3.5-5.1); SODIUM 136 MMOL/L (135-145); TOTAL CARBON DIOXIDE 27.2 MMOL/L (24-32)
[2023-05-16 13:36] LABS: ALANINE AMINOTRANSFERASE 7 U/L (12-78); ALBUMIN/GLOBULIN RATIO 0.6 (1.1-1.5); ALKALINE PHOSPHATASE 50 IU/L (46-116); ASPARTATE AMINO TRANSFERASE 14 U/L (10-37); BILIRUBIN,TOTAL 0.4 MG/DL (0.1-1.0); CALCIUM 9.3 MG/DL (8.5-10.1); TOTAL PROTEIN 7.7 G/DL (6.4-8.2); eCRCL 31 ML/MIN; eGFR 32 ML/MIN
[2023-05-16 13:46] LABS: ETHANOL < 10 MG/DL (<10); THYROID STIMULATING HORMONE 12.04 ulU/ml (0.34-4.50)
[2023-05-16 13:59] LABS: ANISOCYTOSIS 1+; PLATELET ESTIMATE NORMAL; TOTAL CELLS COUNTED 100
[2023-05-16 14:00] LABS: POIKILOCYTOSIS FEW; TEAR DROP CELLS FEW
[2023-05-16 14:01] LABS: STOMATOCYTES FEW
[2023-05-16] MEDS ORDERED: acetaminophen 325mg tablet PO ONE (14:40)
[2023-05-16 17:39] LABS: URINE HCG NEGATIVE (NEG)
[2023-05-16 17:55] LABS: BILIRUBIN,URINE NEGATIVE (Neg); CLARITY,URINE CLOUDY (Clear); COLOR,URINE YELLOW (Yellow); GLUCOSE, URINE NEGATIVE (Neg); KETONES,URINE 15 mg/dl (Neg); LEUKOCYTE ESTERASE ,URINE TRACE (Neg); NITRITES, URINE POSITIVE (Neg); OCCULT BLOOD,URINE MODERATE (Neg); PROTEIN,URINE 30 mg/dl (Neg); UROBILINOGEN,URINE 0.2 E.U/dL (0.2-1.0)
[2023-05-16 18:00] LABS: UA COLLECTION TYPE VOIDED
[2023-05-16 18:04] LABS: URINE AMPHETAMINE SCREEN NEGATIVE (Neg); URINE BARBITUATE SCREEN NEGATIVE (Neg); URINE BENZODIAZEPINES SCREEN NEGATIVE (Neg); URINE CANNABINOID SCREEN NEGATIVE (Neg); URINE COCAINE SCREEN NEGATIVE (Neg); URINE METHADONE SCREEN NEGATIVE (Neg); URINE OPIATE SCREEN NEGATIVE (Neg); URINE PHENCYCLIDINE SCREEN NEGATIVE (Neg)
[2023-05-16 18:10] LABS: BACTERIA,URINE 4+ /HPF (Neg); SQUAMOUS EPITHELIAL CELL,UR FEW /LPF (FEW); WBC,URINE TNTC /HPF (0-4)
[2023-05-16 18:11] LABS: WBC CLUMPS,URINE FEW /HPF (NEGATIVE)
[2023-05-16] MEDS ORDERED: LORazepam 2 mg/ml vial IM ONE (20:05)
[2023-05-16] MEDS ORDERED: acetaminophen 325mg tablet PO STA (20:38)
[2023-05-16] MEDS ORDERED: CefTRIAXone 2gm/D5W 50ml BAG 50 ML IV ONE (20:40)
[2023-05-16] MEDS ORDERED: vancomycin/NS 1 GM ADD-VANTAGE 250 ML IV ONE (20:40)
[2023-05-16] MEDS ORDERED: normal saline 1000ML IV soln IV ONE (20:40)
[2023-05-16 21:17] LABS: BASOPHILS % (AUTO) 0.2 % (0-1); EOSINOPHILS % (AUTO) 0 % (0-6); HEMATOCRIT 30.2 % (35.0-45.0); LYMPHOCYTES # (AUTO) 0.5 X10'3 (1.1-4.8); LYMPHOCYTES % (AUTO) 7.2 % (21-51); MEAN CORPUSCULAR HEMOGLOBIN 32.5 PG (27.0-31.0); MEAN CORPUSCULAR HGB CONC 33.2 g/dL (33.0-36.5); MEAN CORPUSCULAR VOLUME 97.9 FL (78-98); MEAN PLATELET VOLUME 6.7 FL (7.4-10.4); MONOCYTES # (AUTO) 1.5 X10'3 (0-0.9); MONOCYTES % (AUTO) 19.9 % (2-12); NEUTROPHILS # (AUTO) 5.5 X10'3 (1.8-7.7); NEUTROPHILS % (AUTO) 72.7 % (42-75); PLATELET COUNT 281 X10'3 (140-440); RED BLOOD COUNT 3.09 X10'6 (4.20-5.60); RED CELL DISTRIBUTION WIDTH 16.3 % (11.5-14.5); WHITE BLOOD COUNT 7.5 X10'3 (4.5-11.0)
[2023-05-16 21:32] LABS: ALANINE AMINOTRANSFERASE 17 U/L (12-78); ALBUMIN 2.9 G/DL (3.4-5.0); ALBUMIN/GLOBULIN RATIO 0.6 (1.1-1.5); ALKALINE PHOSPHATASE 55 IU/L (46-116); ANION GAP 4 (8-16); ASPARTATE AMINO TRANSFERASE 24 U/L (10-37); BILIRUBIN,TOTAL 0.4 MG/DL (0.1-1.0); BLOOD UREA NITROGEN 19 MG/DL (7-18); BUN/CREATININE RATIO 11.7 (10.0-20.0); CHLORIDE 101 MMOL/L (99-107); CREATININE 1.62 MG/DL (0.40-0.90); GLUCOSE 119 MG/DL (70-104); MAGNESIUM 1.9 MG/DL (1.5-2.4); POTASSIUM 4.1 MMOL/L (3.5-5.1); SODIUM 134 MMOL/L (135-145); TOTAL CARBON DIOXIDE 28.6 MMOL/L (24-32); TOTAL PROTEIN 7.6 G/DL (6.4-8.2); eCRCL 31 ML/MIN; eGFR 32 ML/MIN
[2023-05-17] VITALS (7 sets, daily range): BP systolic 99–142; BP diastolic 69–77; PULSE 82–132; RESP 16–22; TEMP 97.2–102.6; O2SAT 91–95
[2023-05-17 00:54] LABS: BILIRUBIN,URINE NEGATIVE (Neg); CLARITY,URINE CLOUDY (Clear); COLOR,URINE STRAW (Yellow); GLUCOSE, URINE NEGATIVE (Neg); KETONES,URINE NEGATIVE (Neg); LEUKOCYTE ESTERASE ,URINE SMALL (Neg); NITRITES, URINE NEGATIVE (Neg); OCCULT BLOOD,URINE SMALL (Neg); PROTEIN,URINE NEGATIVE (Neg); UROBILINOGEN,URINE 0.2 E.U/dL (0.2-1.0)
[2023-05-17 01:06] LABS: UA COLLECTION TYPE CLN CATCH MIDSTREAM
[2023-05-17 01:09] LABS: BACTERIA,URINE 1+ /HPF (Neg); RENAL CELLS, URINE FEW /HPF; SQUAMOUS EPITHELIAL CELL,UR FEW /LPF (FEW); TRANSITIONAL EPI CELLS,URINE FEW /HPF; WBC,URINE 30-50 /HPF (0-4)
[2023-05-17] MEDS ORDERED: acetaminophen 1,000mg/100ml IV 100 ML IV ONE (01:35)
[2023-05-17] MEDS ORDERED: mag hydrox/Alum hydrox/simeth 30ml oral suspension PO PRN (01:45)
[2023-05-17] MEDS ORDERED: potassium Cl 20 mEq SR tablet PO PRN ×2 (01:45)
[2023-05-17] MEDS ORDERED: potassium Cl 40MEQ/1/2NS 520ml 520 ML IV PRN (01:45)
[2023-05-17] MEDS ORDERED: ondansetron/PF 4mg/2ml inj IV PRN (01:45)
[2023-05-17] MEDS ORDERED: magnesium 4gm in 100ml NS 100 ML IV PRN (01:45)
[2023-05-17] MEDS ORDERED: magnesium Cl slow-release 64mg tablet PO PRN (01:45)
[2023-05-17] MEDS ORDERED: magnesium 2GM in 50ml NS 50 ML IV PRN (01:45)
[2023-05-17] MEDS ORDERED: divalproex 250mg tablet, delayed-release PO ONE (01:55)
[2023-05-17] MEDS ORDERED: metoprolol tartrate 1mg/ml inj IV ONE (02:05)
[2023-05-17] MEDS: normal saline 1000ml 1,000 ML IV SCH ×3 (04:12→18:28)
[2023-05-17] MEDS: K and/or MAG REPLACEMENT MC SCH ×2 (07:26→19:44)
[2023-05-17] MEDS ORDERED: acetaminophen 325mg tablet PO SCH (08:00)
[2023-05-17] MEDS ORDERED: CefTRIAXone/D5W-Rocephin 1gm 50 ML IV SCH (08:00)
[2023-05-17 09:32] LABS: MAGNESIUM 2.3 MG/DL (1.5-2.4)
[2023-05-17] MEDS ORDERED: acetaminophen 120MG suppository, rectal RC PRN (10:00)
[2023-05-17] MEDS: QUEtiapine 25mg tablet PO SCH (10:23)
[2023-05-17] MEDS: prazosin 1mg capsule PO SCH ×2 (10:24→13:17)
[2023-05-17] MEDS: docusate sod 100mg capsule PO SCH ×2 (10:24→20:00)
[2023-05-17] MEDS: levoTHYROXINE 88mcg tablet PO SCH (10:24)
[2023-05-17] MEDS: acetaminophen 325mg tablet PO PRN (10:24)
[2023-05-17] MEDS: heparin, porcine 5000 units/ml vial SQ SCH ×2 (10:25→21:29)
[2023-05-17] MEDS: benztropine 1mg tablet PO SCH ×2 (10:29→21:29)
[2023-05-17] MEDS ORDERED: ibuprofen tablet 400 MG TABLET PO ONE (12:55)
[2023-05-17] MEDS: piperacillin/tazo 3.375gm/50ml 50 ML IV SCH ×2 (16:06→23:58)
[2023-05-17] MEDS ORDERED: UNABLE TO OBTAIN (17:11)
[2023-05-17] MEDS: traZODone 50mg tablet PO SCH (20:00)
[2023-05-17] MEDS: nystatin 15 GM powder TP SCH (20:00)
[2023-05-18] MEDS: normal saline 1000ml 1,000 ML IV SCH ×2 (04:40→17:46)
[2023-05-18 06:00] VITALS: BP 139/92; PULSE 103; RESP 20; TEMP 97.6; O2SAT 93
[2023-05-18] MEDS: acetaminophen 325mg tablet PO PRN ×2 (06:06→22:41)
[2023-05-18 06:38] LABS: BASOPHILS % (AUTO) 0.3 % (0-1); EOSINOPHILS % (AUTO) 0.2 % (0-6); HEMATOCRIT 29.8 % (35.0-45.0); LYMPHOCYTES # (AUTO) 0.8 X10'3 (1.1-4.8); MEAN CORPUSCULAR HGB CONC 33.4 g/dL (33.0-36.5); MEAN PLATELET VOLUME 7.1 FL (7.4-10.4); MONOCYTES % (AUTO) 12.9 % (2-12); NEUTROPHILS # (AUTO) 6.2 X10'3 (1.8-7.7); NEUTROPHILS % (AUTO) 76.6 % (42-75); PLATELET COUNT 229 X10'3 (140-440); RED BLOOD COUNT 3.01 X10'6 (4.20-5.60); RED CELL DISTRIBUTION WIDTH 16.2 % (11.5-14.5)
[2023-05-18 07:35] LABS: ANISOCYTOSIS 1+; PLATELET ESTIMATE NORMAL; TOTAL CELLS COUNTED 100
[2023-05-18 07:39] LABS: ALANINE AMINOTRANSFERASE 24 U/L (12-78); ALBUMIN 2.1 G/DL (3.4-5.0); ALBUMIN/GLOBULIN RATIO 0.5 (1.1-1.5); ALKALINE PHOSPHATASE 60 IU/L (46-116); ANION GAP 9 (8-16); ASPARTATE AMINO TRANSFERASE 31 U/L (10-37); BILIRUBIN,TOTAL 0.2 MG/DL (0.1-1.0); BLOOD UREA NITROGEN 20 MG/DL (7-18); BUN/CREATININE RATIO 14.7 (10.0-20.0); CALCIUM 8.4 MG/DL (8.5-10.1); CHLORIDE 109 MMOL/L (99-107); CREATININE 1.36 MG/DL (0.40-0.90); GLUCOSE 85 MG/DL (70-104); MAGNESIUM 2.2 MG/DL (1.5-2.4); POTASSIUM 3.7 MMOL/L (3.5-5.1); SODIUM 142 MMOL/L (135-145); TOTAL CARBON DIOXIDE 24.5 MMOL/L (24-32); TOTAL PROTEIN 6.7 G/DL (6.4-8.2); eCRCL 37 ML/MIN; eGFR 39 ML/MIN
[2023-05-18] MEDS: K and/or MAG REPLACEMENT MC SCH ×2 (08:00→18:53)
[2023-05-18 09:15] VITALS: RESP 16; O2SAT 96
[2023-05-18] MEDS: magnesium hydroxide 30ml (MOM) UD suspension PO PRN (09:23)
[2023-05-18] MEDS: piperacillin/tazo 3.375gm/50ml 50 ML IV SCH ×2 (09:23→16:00)
[2023-05-18] MEDS: QUEtiapine 25mg tablet PO SCH (09:23)
[2023-05-18] MEDS: docusate sod 100mg capsule PO SCH ×2 (09:23→22:41)
[2023-05-18] MEDS: heparin, porcine 5000 units/ml vial SQ SCH ×2 (09:24→22:42)
[2023-05-18] MEDS: prazosin 1mg capsule PO SCH ×2 (09:24→22:41)
[2023-05-18] MEDS: levoTHYROXINE 88mcg tablet PO SCH (09:24)
[2023-05-18] MEDS: benztropine 1mg tablet PO SCH ×2 (09:24→22:44)
[2023-05-18] MEDS: nystatin 15 GM powder TP SCH ×2 (09:25→22:43)
[2023-05-18 10:00] VITALS: BP 151/79; PULSE 83; RESP 17; TEMP 99.1; O2SAT 96
[2023-05-18] MEDS ORDERED: hydrOXYzine 25 MG tablet PO ONE (11:30)
[2023-05-18] MEDS ORDERED: LORazepam 2 mg/ml vial IV PRN (17:35)
[2023-05-18 18:00] VITALS: BP 135/79; PULSE 125; RESP 16; TEMP 97.3; O2SAT 96
[2023-05-18 22:00] VITALS: BP 150/83; PULSE 113; RESP 20; TEMP 98.9; O2SAT 94
[2023-05-18 22:30] VITALS: RESP 16; O2SAT 96
[2023-05-18] MEDS: traZODone 50mg tablet PO SCH (22:41)
[2023-05-19] MEDS: piperacillin/tazo 3.375gm/50ml 50 ML IV SCH ×3 (00:43→16:46)
[2023-05-19] MEDS: normal saline 1000ml 1,000 ML IV SCH ×3 (02:24→21:31)
[2023-05-19] MEDS: acetaminophen 325mg tablet PO PRN (05:42)
[2023-05-19 06:00] VITALS: BP 107/90; PULSE 94; RESP 18; TEMP 97.8; O2SAT 96
[2023-05-19 07:05] LABS: BASOPHILS % (AUTO) 0.3 % (0-1); EOSINOPHILS % (AUTO) 0.2 % (0-6); HEMATOCRIT 25.4 % (35.0-45.0); HEMOGLOBIN 8.5 g/dl (12.0-16.0); LYMPHOCYTES # (AUTO) 0.9 X10'3 (1.1-4.8); LYMPHOCYTES % (AUTO) 14.6 % (21-51); MEAN CORPUSCULAR HEMOGLOBIN 32.7 PG (27.0-31.0); MEAN CORPUSCULAR HGB CONC 33.4 g/dL (33.0-36.5); MONOCYTES # (AUTO) 1.1 X10'3 (0-0.9); MONOCYTES % (AUTO) 17.3 % (2-12); NEUTROPHILS # (AUTO) 4.2 X10'3 (1.8-7.7); NEUTROPHILS % (AUTO) 67.6 % (42-75); PLATELET COUNT 218 X10'3 (140-440); RED BLOOD COUNT 2.59 X10'6 (4.20-5.60); RED CELL DISTRIBUTION WIDTH 15.8 % (11.5-14.5); WHITE BLOOD COUNT 6.2 X10'3 (4.5-11.0)
[2023-05-19 07:50] LABS: ALANINE AMINOTRANSFERASE 26 U/L (12-78); ALBUMIN 1.9 G/DL (3.4-5.0); ALBUMIN/GLOBULIN RATIO 0.4 (1.1-1.5); ALKALINE PHOSPHATASE 60 IU/L (46-116); ANION GAP 8 (8-16); ASPARTATE AMINO TRANSFERASE 34 U/L (10-37); BILIRUBIN,TOTAL 0.2 MG/DL (0.1-1.0); BLOOD UREA NITROGEN 10 MG/DL (7-18); BUN/CREATININE RATIO 8.3 (10.0-20.0); CALCIUM 8.7 MG/DL (8.5-10.1); CHLORIDE 109 MMOL/L (99-107); CREATININE 1.21 MG/DL (0.40-0.90); GLUCOSE 102 MG/DL (70-104); MAGNESIUM 2.1 MG/DL (1.5-2.4); POTASSIUM 3.6 MMOL/L (3.5-5.1); SODIUM 142 MMOL/L (135-145); TOTAL CARBON DIOXIDE 25.4 MMOL/L (24-32); TOTAL PROTEIN 6.2 G/DL (6.4-8.2); eCRCL 42 ML/MIN; eGFR 45 ML/MIN
[2023-05-19] MEDS: nystatin 15 GM powder TP SCH ×2 (08:00→20:24)
[2023-05-19] MEDS: K and/or MAG REPLACEMENT MC SCH ×2 (08:00→20:00)
[2023-05-19 10:00] VITALS: BP 127/75; PULSE 92; RESP 20; TEMP 99.9; O2SAT 92
[2023-05-19 10:42] LABS: PLATELET ESTIMATE NORMAL; TOTAL CELLS COUNTED 100
[2023-05-19] MEDS: heparin, porcine 5000 units/ml vial SQ SCH ×2 (10:42→20:18)
[2023-05-19 10:43] LABS: ANISOCYTOSIS 1+; POLYCHROMASIA 1+
[2023-05-19] MEDS: benztropine 1mg tablet PO SCH ×2 (10:43→20:17)
[2023-05-19] MEDS: prazosin 1mg capsule PO SCH ×2 (10:43→20:17)
[2023-05-19] MEDS: levoTHYROXINE 88mcg tablet PO SCH (10:43)
[2023-05-19] MEDS: docusate sod 100mg capsule PO SCH ×2 (10:43→20:17)
[2023-05-19 10:44] LABS: TEAR DROP CELLS FEW
[2023-05-19] MEDS: quetiapine 100mg tablet PO SCH (10:57)
[2023-05-19] MEDS ORDERED: CIPR-202 PO ×2 (11:16)
[2023-05-19] MEDS: LORazepam 1 MG tablet PO PRN (14:37)
[2023-05-19] MEDS ORDERED: FERR324T4 PO ×2 (15:42)
[2023-05-19 18:00] VITALS: BP 144/80; PULSE 127; RESP 20; TEMP 99; O2SAT 93
[2023-05-19] MEDS: traZODone 50mg tablet PO SCH (20:17)
[2023-05-19 22:00] VITALS: BP 132/79; PULSE 117; RESP 17; TEMP 97.6; O2SAT 94
[2023-05-20] MEDS: piperacillin/tazo 3.375gm/50ml 50 ML IV SCH ×2 (00:51→09:08)
[2023-05-20] MEDS: LORazepam 1 MG tablet PO PRN (03:06)
[2023-05-20] MEDS: acetaminophen 325mg tablet PO PRN (03:06)
[2023-05-20 06:00] VITALS: BP 120/69; PULSE 92; RESP 18; TEMP 97.8; O2SAT 94
[2023-05-20 06:15] LABS: ALANINE AMINOTRANSFERASE 38 U/L (12-78); ALBUMIN 1.9 G/DL (3.4-5.0); ALBUMIN/GLOBULIN RATIO 0.4 (1.1-1.5); ALKALINE PHOSPHATASE 64 IU/L (46-116); ANION GAP 5 (8-16); ASPARTATE AMINO TRANSFERASE 51 U/L (10-37); BILIRUBIN,TOTAL 0.2 MG/DL (0.1-1.0); BLOOD UREA NITROGEN 8 MG/DL (7-18); BUN/CREATININE RATIO 6.9 (10.0-20.0); CALCIUM 8.8 MG/DL (8.5-10.1); CHLORIDE 107 MMOL/L (99-107); CREATININE 1.16 MG/DL (0.40-0.90); GLUCOSE 96 MG/DL (70-104); MAGNESIUM 1.9 MG/DL (1.5-2.4); POTASSIUM 3.7 MMOL/L (3.5-5.1); SODIUM 139 MMOL/L (135-145); TOTAL CARBON DIOXIDE 27.5 MMOL/L (24-32); TOTAL PROTEIN 6.2 G/DL (6.4-8.2); eCRCL 43 ML/MIN; eGFR 47 ML/MIN
[2023-05-20 06:17] LABS: BASOPHILS % (AUTO) 0.3 % (0-1); EOSINOPHILS % (AUTO) 0.5 % (0-6); HEMATOCRIT 26.1 % (35.0-45.0); HEMOGLOBIN 8.8 g/dl (12.0-16.0); LYMPHOCYTES # (AUTO) 1.2 X10'3 (1.1-4.8); MEAN CORPUSCULAR HEMOGLOBIN 32.7 PG (27.0-31.0); MEAN CORPUSCULAR HGB CONC 33.5 g/dL (33.0-36.5); MEAN CORPUSCULAR VOLUME 97.4 FL (78-98); MEAN PLATELET VOLUME 6.8 FL (7.4-10.4); MONOCYTES # (AUTO) 0.9 X10'3 (0-0.9); MONOCYTES % (AUTO) 16.1 % (2-12); NEUTROPHILS # (AUTO) 3.7 X10'3 (1.8-7.7); NEUTROPHILS % (AUTO) 63.1 % (42-75); PLATELET COUNT 238 X10'3 (140-440); RED BLOOD COUNT 2.68 X10'6 (4.20-5.60); RED CELL DISTRIBUTION WIDTH 15.8 % (11.5-14.5); WHITE BLOOD COUNT 5.8 X10'3 (4.5-11.0)
[2023-05-20 06:41] LABS: TOTAL CELLS COUNTED 100
[2023-05-20 06:42] LABS: PLATELET ESTIMATE NORMAL; ROULEAUX 1+
[2023-05-20 06:43] LABS: ANISOCYTOSIS FEW; POIKILOCYTOSIS 1+
[2023-05-20] MEDS: K and/or MAG REPLACEMENT MC SCH (07:22)
[2023-05-20] MEDS: levoTHYROXINE 88mcg tablet PO SCH (07:37)
[2023-05-20] MEDS: prazosin 1mg capsule PO SCH (07:37)
[2023-05-20] MEDS: quetiapine 100mg tablet PO SCH (07:37)
[2023-05-20] MEDS: docusate sod 100mg capsule PO SCH (07:37)
[2023-05-20] MEDS: benztropine 1mg tablet PO SCH (07:37)
[2023-05-20] MEDS: magnesium hydroxide 30ml (MOM) UD suspension PO PRN (07:39)
[2023-05-20 08:00] VITALS: RESP 16; O2SAT 94
[2023-05-20] MEDS: nystatin 15 GM powder TP SCH (08:02)
[2023-05-20] MEDS: heparin, porcine 5000 units/ml vial SQ SCH (08:05)
[2023-05-20 09:10] VITALS: RESP 20; O2SAT 93
[2023-05-20 10:00] VITALS: BP 119/75; PULSE 107; RESP 20; TEMP 99; O2SAT 93
[2023-05-20] MEDS: normal saline 1000ml 1,000 ML IV SCH (10:05)
[2023-05-20] MEDS ORDERED: bisacodyl 10mg suppository rectal RC STA (10:31)
[2023-05-20] MEDS ORDERED: SYN0.088T PO (17:54)
[2023-05-20] MEDS ORDERED: PROP10TA10 PO (17:54)
[2023-05-20] MEDS ORDERED: DOCU100C40 PO (17:54)
[2023-05-20] MEDS ORDERED: BENZ1TAB78 PO (17:54)
[2023-05-20] MEDS ORDERED: CIPR-259 PO (17:54)
[2023-05-20] MEDS ORDERED: TRAZ-256 PO (17:54)
[2023-05-20] MEDS ORDERED: QUET300T2 PO (17:54)
[2023-05-29] MEDS ORDERED: LEVO112T5 PO (07:26)
[2023-05-29] MEDS ORDERED: MULT9LIQ7 PO (07:26)
[2023-05-29] MEDS ORDERED: DOCU100C40 PO (07:26)
[2023-05-29] MEDS ORDERED: PROP20TA6 PO (07:26)
[2023-06-05] MEDS ORDERED: QUET-1 PO (11:57)
[2023-06-05] MEDS ORDERED: DICL100G59 TOP (11:57)
[2023-06-05] MEDS ORDERED: FERR325T28 PO (11:57)
[2023-06-05] MEDS ORDERED: SYN0.088T PO (12:05)
[2023-06-05] MEDS ORDERED: CEPH500C2 PO (12:05)
[2023-06-05] MEDS ORDERED: BUPR1PAT23 TOP (12:05)
[2023-06-05] MEDS ORDERED: LEVO112T5 PO (14:50)
[2023-06-06] MEDS ORDERED: QUET-1 PO (13:55)
[2023-06-06] MEDS ORDERED: BENZ1TAB78 PO (14:05)
[2023-06-06] MEDS ORDERED: TRAZ-256 PO (14:05)
[2023-06-06] MEDS ORDERED: ROPI0.2544 PO (14:05)
== END 2023-05-20 15:20 | DRG 682 ==
LOC: ER 12:54 → ED HOLD 05-17 01:48 → ORTHO 4S 05-17 07:35
PROVIDERS: ADMIT Internal Medicine; ATTEND Family Medicine
DX: N17.0 Acute kidney failure with tubular necrosis (principal); R65.11 Systemic inflammatory response syndrome (SIRS) of non-infectious origin with acute organ dysfunction; N10 Acute pyelonephritis; I12.9 Hypertensive chronic kidney disease with stage 1 through stage 4 chronic kidney disease, or unspecified chronic kidney disease; N18.30 Chronic kidney disease, stage 3 unspecified; F41.9 Anxiety disorder, unspecified; E03.9 Hypothyroidism, unspecified; F20.9 Schizophrenia, unspecified; F32.A Depression, unspecified; G89.29 Other chronic pain; F19.10 Other psychoactive substance abuse, uncomplicated; F29 Unspecified psychosis not due to a substance or known physiological condition; D64.9 Anemia, unspecified; K76.0 Fatty (change of) liver, not elsewhere classified; K80.20 Calculus of gallbladder without cholecystitis without obstruction; Z20.822 Contact with and (suspected) exposure to COVID-19; Z87.891 Personal history of nicotine dependence; Z79.899 Other long term (current) drug therapy
CPT/HCPCS: 36415; 71045; 74176; 80053; 80305; 80320; 81001; 81025; 83605; 83735; 84132; 84145; 84443; 85007; 85025; 87040; 87077; 87081; 87088; 87186; 87502; 87503; 87811; 97161; 97530; 99285; A4314; A4615; A5200; C1758; G0378; J0131; J0696; J1644; J2060; J2543; J3370; J3490; J7030; Q0177

== ENCOUNTER 2023-09-04 17:31 | Emergency (ER) | payer MEDICARE, MEDICAID ==
[~2023-09-04] VITALS: Ht 162.6 cm; Wt 94.8 kg
[~2023-09-04 17:31] MED LIST changes: +BENZ1TAB78 PO; -BENZ1TAB93 PO; +BUPR1PAT23 TOP; +CEPH500C2 PO; +DICL100G59 TOP; +FERR325T28 PO; +LEVO112T5 PO; +MULT9LIQ7 PO; -NICO-687 TD; +QUET-1 PO; -QUET300T2 PO; +ROPI0.2544 PO; -TRAZ-251 PO; +TRAZ-256 PO
[2023-09-04 19:08] LABS: BILIRUBIN,URINE NEGATIVE (Neg); CLARITY,URINE CLEAR (Clear); COLOR,URINE YELLOW (Yellow); GLUCOSE, URINE NEGATIVE (Neg); KETONES,URINE NEGATIVE (Neg); LEUKOCYTE ESTERASE ,URINE NEGATIVE (Neg); NITRITES, URINE NEGATIVE (Neg); OCCULT BLOOD,URINE NEGATIVE (Neg); PROTEIN,URINE NEGATIVE (Neg); UROBILINOGEN,URINE 0.2 E.U/dL (0.2-1.0)
[2023-09-04 19:11] LABS: UA COLLECTION TYPE CLN CATCH MIDSTREAM
[2023-09-04 19:15] LABS: ALBUMIN 3.1 G/DL (3.4-5.0); ANION GAP 9 (8-16); BLOOD UREA NITROGEN 14 MG/DL (7-18); BUN/CREATININE RATIO 13.9 (10.0-20.0); CALCIUM 9.2 MG/DL (8.5-10.1); CHLORIDE 108 MMOL/L (99-107); CREATININE 1.01 MG/DL (0.40-0.90); GLUCOSE 90 MG/DL (70-104); POTASSIUM 4.1 MMOL/L (3.5-5.1); SODIUM 145 MMOL/L (135-145); THYROID STIMULATING HORMONE 2.04 ulU/ml (0.34-4.50); eCRCL 50 ML/MIN; eGFR 56 ML/MIN
[2023-09-04 19:18] LABS: URINE AMPHETAMINE SCREEN NEGATIVE (Neg); URINE BARBITUATE SCREEN NEGATIVE (Neg); URINE BENZODIAZEPINES SCREEN NEGATIVE (Neg); URINE CANNABINOID SCREEN POSITIVE (Neg); URINE COCAINE SCREEN NEGATIVE (Neg); URINE METHADONE SCREEN NEGATIVE (Neg); URINE OPIATE SCREEN NEGATIVE (Neg); URINE PHENCYCLIDINE SCREEN NEGATIVE (Neg)
[2023-09-04 19:23] LABS: ETHANOL < 10 MG/DL (<10)
[2023-09-04 19:36] LABS: BASOPHILS % (AUTO) 0.3 % (0-1); EOSINOPHILS # (AUTO) 0.1 X10'3 (0-0.9); EOSINOPHILS % (AUTO) 1.3 % (0-6); HEMATOCRIT 31.1 % (35.0-45.0); HEMOGLOBIN 10.5 g/dl (12.0-16.0); LYMPHOCYTES # (AUTO) 1.5 X10'3 (1.1-4.8); LYMPHOCYTES % (AUTO) 19.7 % (21-51); MEAN CORPUSCULAR HEMOGLOBIN 29.9 PG (27.0-31.0); MEAN CORPUSCULAR HGB CONC 33.8 g/dL (33.0-36.5); MEAN CORPUSCULAR VOLUME 88.6 FL (78-98); MEAN PLATELET VOLUME 8.3 FL (7.4-10.4); MONOCYTES # (AUTO) 0.6 X10'3 (0-0.9); MONOCYTES % (AUTO) 8.1 % (2-12); NEUTROPHILS # (AUTO) 5.2 X10'3 (1.8-7.7); NEUTROPHILS % (AUTO) 70.6 % (42-75); PLATELET COUNT 240 X10'3 (140-440); RED BLOOD COUNT 3.51 X10'6 (4.20-5.60); RED CELL DISTRIBUTION WIDTH 14.1 % (11.5-14.5); WHITE BLOOD COUNT 7.4 X10'3 (4.5-11.0)
[2023-09-04] MEDS: traZODone 50mg tablet PO SCH (21:45)
[2023-09-04] MEDS: traZODone 50mg tablet PO ONE (22:32)
[2023-09-05] MEDS: levoTHYROXINE 88mcg tablet PO SCH (07:11)
[2023-09-05] MEDS: DICLOFENAC SODIUM 1% gel 1 APPLIC APPLIC TP SCH (08:00)
[2023-09-05] MEDS ORDERED: quetiapine 100mg tablet PO SCH (08:00)
[2023-09-05] MEDS: benztropine 1mg tablet PO SCH (08:43)
[2023-09-05] MEDS: ferrous sulfate 325mg tablet PO SCH (08:44)
[2023-09-05] MEDS: quetiapine 100mg tablet PO SCH (08:44)
[2023-09-05] MEDS: BUPRENORPHINE ID SCH (12:06)
[2023-09-05] MEDS: LORazepam 1 MG tablet PO ONE (15:41)
[2023-09-05] MEDS ORDERED: BENZ2TAB74 PO (22:23)
[2023-09-05] MEDS ORDERED: QUET-1 PO (22:23)
[2023-09-05] MEDS ORDERED: QUET200T31 PO (23:22)
[2023-09-05] MEDS: QUEtiapine 25mg tablet PO ONE (23:52)
[2023-09-06] MEDS: quetiapine 100mg tablet PO SCH (00:01)
[2023-09-06] MEDS ORDERED: benztropine 1mg tablet PO SCH (00:06)
[2023-09-06] MEDS: benztropine 1mg tablet PO SCH (00:07)
[2023-09-06] MEDS ORDERED: quetiapine 100mg tablet PO SCH (08:00)
[2023-09-06 14:44] VITALS: BP 98/57; PULSE 68; RESP 16; TEMP 97.9; O2SAT 96
== END 2023-09-06 14:47 | disposition still patient (30) ==
LOC: ER 17:32
DX: Z04.6 Encounter for general psychiatric examination, requested by authority (principal); Z20.822 Contact with and (suspected) exposure to COVID-19; F15.90 Other stimulant use, unspecified, uncomplicated; F11.90 Opioid use, unspecified, uncomplicated; F12.90 Cannabis use, unspecified, uncomplicated; I10 Essential (primary) hypertension; F32.9 Major depressive disorder, single episode, unspecified; F41.9 Anxiety disorder, unspecified; F20.9 Schizophrenia, unspecified; Z86.73 Personal history of transient ischemic attack (TIA), and cerebral infarction without residual deficits; E07.9 Disorder of thyroid, unspecified; G89.29 Other chronic pain
CPT/HCPCS: 36415; 80048; 80305; 80320; 81003; 84443; 85025; 87811; 99285

== ENCOUNTER 2024-08-31 08:21 | Observation (INO) | payer MEDICARE, MEDICAID ==
[2024-08-25 15:11] LABS: BASOPHILS % (AUTO) 0.2 % (0-1); EOSINOPHILS % (AUTO) 0.8 % (0-6); LYMPHOCYTES # (AUTO) 1.4 X10'3 (1.1-4.8); MEAN CORPUSCULAR HEMOGLOBIN 31.2 PG (27.0-31.0); MEAN CORPUSCULAR HGB CONC 33.4 g/dL (33.0-36.5); MEAN CORPUSCULAR VOLUME 93.2 FL (78-98); MEAN PLATELET VOLUME 7.9 FL (7.4-10.4); MONOCYTES # (AUTO) 0.5 X10'3 (0-0.9); MONOCYTES % (AUTO) 8.4 % (2-12); NEUTROPHILS # (AUTO) 3.7 X10'3 (1.8-7.7); NEUTROPHILS % (AUTO) 65.6 % (42-75); PRE OP HEMATOCRIT 36.5 % (35.0-45.0); PRE OP HEMOGLOBIN 12.2 g/dL (12.0-16.0); PRE OP PLATELET COUNT 187 X10'3 (140-440); PRE OP WHITE BLOOD COUNT 5.6 10'3 (4.8-10.8); RED BLOOD COUNT 3.92 X10'6 (4.20-5.60); RED CELL DISTRIBUTION WIDTH 14.3 % (11.5-14.5)
[2024-08-25 15:26] LABS: PRE OP PROTIME 10.2 SECONDS (9.0-12.0)
[2024-08-25 15:29] LABS: ALBUMIN 3.5 G/DL (3.4-5.0); ALBUMIN/GLOBULIN RATIO 0.9 (1.1-1.5); ALKALINE PHOSPHATASE 81 IU/L (46-116); BLOOD UREA NITROGEN 22 MG/DL (7-18); BUN/CREATININE RATIO 26.2 (10.0-20.0); CHLORIDE 106 MMOL/L (99-107); CREATININE 0.84 MG/DL (0.40-0.90); PRE OP ALT 65 U/L (30-65); PRE OP ANION GAP 8 (8-16); PRE OP AST 29 U/L (10-37); PRE OP BILIRUB, TOTAL 0.2 MG/DL (0.0-1.0); PRE OP GLUCOSE 113 MG/DL (70-104); PRE OP POTASSIUM 4.1 MMOL/L (3.4-5.1); PRE OP SODIUM 143 MMOL/L (135-145); TOTAL CARBON DIOXIDE 29.4 MMOL/L (24-32); TOTAL PROTEIN 7.4 G/DL (6.4-8.2); eGFR 68 ML/MIN
[2024-08-25 16:27] LABS: BILIRUBIN,URINE NEGATIVE (Neg); CLARITY,URINE CLEAR (Clear); COLOR,URINE YELLOW (Yellow); GLUCOSE, URINE NEGATIVE (Neg); KETONES,URINE NEGATIVE (Neg); LEUKOCYTE ESTERASE ,URINE SMALL (Neg); NITRITES, URINE NEGATIVE (Neg); OCCULT BLOOD,URINE NEGATIVE (Neg); PROTEIN,URINE NEGATIVE (Neg); UROBILINOGEN,URINE 0.2 E.U/dL (0.2-1.0)
[2024-08-25 16:41] LABS: UA COLLECTION TYPE CLN CATCH MIDSTREAM
[2024-08-25 16:43] LABS: BACTERIA,URINE 1+ /HPF (Neg); RBC,URINE 0-2 /HPF (0-2); SQUAMOUS EPITHELIAL CELL,UR FEW /LPF (FEW)
[2024-08-25 16:44] LABS: TRANSITIONAL EPI CELLS,URINE FEW /HPF
[~2024-08-31] VITALS: Ht 162.6 cm; Wt 124.0 kg
[2024-08-31] VITALS (29 sets, daily range): BP systolic 128–196; BP diastolic 76–108; PULSE 93–120; RESP 11–22; TEMP 97.2–98.7; O2SAT 87–97
[2024-08-31] MEDS: DOCUMENT DATE & TIME OF BETA-BLOCKER PO ONE (05:30)
[~2024-08-31 08:21] MED LIST changes: -BENZ1TAB78 PO; +BENZ2TAB PO; -BUPR1PAT23 TOP; +BUSP10TA3 PO; -CEPH500C2 PO; -DICL100G59 TOP; +DIVA-81 PO; -DOCU100C40 PO; -FERR325T28 PO; +GABA-1405 PO; -LEVO112T5 PO; +MELA1TAB52 PO; -MULT9LIQ7 PO; +NYST30CR34 TOP; +OLAN2.5T3 PO; -QUET-1 PO; -ROPI0.2544 PO; -SYN0.088T PO
[2024-08-31] MEDS: tranexamic acid 1gm/0.7% sal. 100 ML IV ONE (09:23)
[2024-08-31] MEDS: CEFAZOLIN 3GM/DEXTROSE 150mL 150 ML IV ONE (09:23)
[2024-08-31] MEDS: ringers solution, lacted 1,000 ML IV SCH ×2 (09:24→11:10)
[2024-08-31] MEDS: famotidine 20mg tablet PO ONE (09:24)
[2024-08-31] MEDS ORDERED: vancomycin 1,000mg inj ONE (09:56)
[2024-08-31] MEDS ORDERED: bisacodyl 10mg suppository rectal RC PRN (10:00)
[2024-08-31] MEDS ORDERED: acetaminophen 325mg tablet PO PRN (10:00)
[2024-08-31] MEDS ORDERED: ibuprofen tablet 400 MG TABLET PO PRN (10:00)
[2024-08-31] MEDS ORDERED: magnesium hydroxide 30ml (MOM) UD suspension PO PRN (10:00)
[2024-08-31] MEDS ORDERED: diphenhydrAMINE 25mg capsule PO PRN (10:00)
[2024-08-31] MEDS ORDERED: naloxone 0.4 mg/ml inj IV PRN (10:00)
[2024-08-31] MEDS ORDERED: sevoflurane 250ml liquid IH ONE (10:15)
[2024-08-31] MEDS ORDERED: BUPIVAcaine/PF 5 mg/ml 10ml ONE (10:16)
[2024-08-31] MEDS ORDERED: BUPIVACAINE liposomal/PF 13.3 MG/ML 10mL vial IM ONE (10:16)
[2024-08-31] MEDS ORDERED: fentaNYL/PF 50MCG/1 ML 2ML syringe ONE (10:21)
[2024-08-31] MEDS ORDERED: midazolam 1 mg/ML 2ml injection ONE (10:21)
[2024-08-31] MEDS ORDERED: ondansetron/PF 4mg/2ml inj ONE (10:35)
[2024-08-31] MEDS ORDERED: propofol inj 20 ML IV ONE (10:35)
[2024-08-31] MEDS ORDERED: rocuronium 10mg/ml inj IV ONE (10:35)
[2024-08-31] MEDS ORDERED: acetaminophen 1,000mg/100ml IV 100 ML IV ONE (10:37)
[2024-08-31] MEDS ORDERED: fentaNYL/PF 50MCG/1 ML 2ML syringe IV PRN ×2 (11:10)
[2024-08-31] MEDS ORDERED: hydrALAZINE 20mg/ml inj. IV PRN ×2 (11:10→21:15)
[2024-08-31] MEDS ORDERED: ondansetron/PF 4mg/2ml inj IV PRN (11:10)
[2024-08-31] MEDS ORDERED: labetalol 20mg/4ml (5mg/ml) syringe IV PRN (11:10)
[2024-08-31] MEDS ORDERED: morphine 4 MG/ML inj SYRINge IV PRN (11:10)
[2024-08-31] MEDS ORDERED: morphine 2 MG/ML inj. syringe IV PRN (11:10)
[2024-08-31] MEDS: ipratropium/albuterol 3ml nebule NEB STA (13:15)
[2024-08-31] MEDS ORDERED: ipratropium/albuterol 3ml nebule NEB PRN (13:15)
[2024-08-31] MEDS ORDERED: ceFAZolin 2gm in dextrose, iso 50 ML IV SCH (16:00)
[2024-08-31] MEDS: potassium cl 20mEq in 1/2 NS 1,000 ML IV SCH (16:43)
[2024-08-31] MEDS: ceFAZolin 2gm in dextrose, iso 50 ML IV SCH (19:36)
[2024-08-31] MEDS: ondansetron/PF 4mg/2ml inj IV PRN (19:36)
[2024-09-01] VITALS: BP 132/78; PULSE 110; RESP 18; TEMP 98.5; O2SAT 96
[2024-09-01] MEDS: ibuprofen 200mg tablet PO PRN (02:10)
[2024-09-01 06:00] VITALS: BP 117/74; PULSE 100; RESP 18; TEMP 97.5; O2SAT 92
[2024-09-01 06:26] LABS: BASOPHILS % (AUTO) 0.1 % (0-1); EOSINOPHILS % (AUTO) 0.2 % (0-6); HEMATOCRIT 31.5 % (35.0-45.0); HEMOGLOBIN 10.8 g/dl (12.0-16.0); LYMPHOCYTES # (AUTO) 1.3 X10'3 (1.1-4.8); LYMPHOCYTES % (AUTO) 20.5 % (21-51); MEAN CORPUSCULAR HEMOGLOBIN 31.4 PG (27.0-31.0); MEAN CORPUSCULAR HGB CONC 34.1 g/dL (33.0-36.5); MEAN CORPUSCULAR VOLUME 92.2 FL (78-98); MEAN PLATELET VOLUME 8.2 FL (7.4-10.4); MONOCYTES # (AUTO) 0.8 X10'3 (0-0.9); MONOCYTES % (AUTO) 12.3 % (2-12); NEUTROPHILS # (AUTO) 4.1 X10'3 (1.8-7.7); NEUTROPHILS % (AUTO) 66.9 % (42-75); PLATELET COUNT 171 X10'3 (140-440); RED BLOOD COUNT 3.42 X10'6 (4.20-5.60); WHITE BLOOD COUNT 6.1 X10'3 (4.5-11.0)
[2024-09-01 07:21] LABS: ALANINE AMINOTRANSFERASE 55 U/L (12-78); ALBUMIN 2.9 G/DL (3.4-5.0); ALBUMIN/GLOBULIN RATIO 0.8 (1.1-1.5); ALKALINE PHOSPHATASE 62 IU/L (46-116); ANION GAP 6 (8-16); ASPARTATE AMINO TRANSFERASE 33 U/L (10-37); BILIRUBIN,TOTAL 0.3 MG/DL (0.1-1.0); BLOOD UREA NITROGEN 17 MG/DL (7-18); BUN/CREATININE RATIO 16.7 (10.0-20.0); CALCIUM 8.6 MG/DL (8.5-10.1); CHLORIDE 104 MMOL/L (99-107); CREATININE 1.02 MG/DL (0.40-0.90); GLUCOSE 108 MG/DL (70-104); POTASSIUM 4.1 MMOL/L (3.5-5.1); SODIUM 141 MMOL/L (135-145); TOTAL CARBON DIOXIDE 31.5 MMOL/L (24-32); TOTAL PROTEIN 6.7 G/DL (6.4-8.2); eCRCL 49 ML/MIN; eGFR 55 ML/MIN
[2024-09-01] MEDS: benztropine 1mg tablet PO SCH (09:33)
[2024-09-01] MEDS: busPIRone 5mg tablet PO SCH (09:33)
[2024-09-01] MEDS: propranolol 10mg tablet PO SCH (09:33)
[2024-09-01] MEDS: divalproex sod 250mg ER (24-hour) tablet PO SCH (09:34)
[2024-09-01] MEDS ORDERED: ASPI-20 PO (12:38)
[2024-09-01 12:46] VITALS: BP_SYST 124; PULSE 126
[2024-09-01] MEDS: metoprolol tartrate 25mg tablet PO STA (12:46)
[2024-09-01] MEDS ORDERED: olanzapine 10mg tablet PO SCH (21:00)
[2024-09-01] MEDS ORDERED: Melatonin 3mg tablet PO SCH (21:00)
[2024-09-01] MEDS ORDERED: traZODone 50mg tablet PO SCH (21:00)
[2024-09-02] MEDS ORDERED: acetaminophen 325mg tablet PO PRN (10:00)
== END 2024-09-01 13:00 | disposition home health service (06) ==
LOC: PAS IN 08:21 → INTOOBSV 08:21 → ORTHO 4S 16:37
PROVIDERS: ADMIT Specialist; ATTEND Specialist
DX: M19.012 Primary osteoarthritis, left shoulder (principal); M75.122 Complete rotator cuff tear or rupture of left shoulder, not specified as traumatic; G89.18 Other acute postprocedural pain; F25.9 Schizoaffective disorder, unspecified; E03.9 Hypothyroidism, unspecified; I10 Essential (primary) hypertension; I25.2 Old myocardial infarction; K21.9 Gastro-esophageal reflux disease without esophagitis; Z79.899 Other long term (current) drug therapy; Z86.2 Personal history of diseases of the blood and blood-forming organs and certain disorders involving the immune mechanism
CPT/HCPCS: 23430; 23472; 64415; 71046; 73030; 80053; 81001; 82948; 85610; 85730; 86885; 86900; 86901; 94640; 94760; 96365; 96366; 96375; 97161; A4565; A4615; A4618; A7000; C1776; G0378; J0665; J0666; J0690; J3480; J3490; J7120; 36415; 76000; 85025; 87081; 87088; 96376; 97530; A6449; A6455; J0131; J1100; J2003; J2250; J2310; J2405; J2704; J3010; J3370